=== PATIENT | female | born 2005 | race Two or more races ===

== ENCOUNTER 2024-09-10 12:46 | Outpatient (AMB) | payer MEDICARE, MEDICAID, SELFPAY ==
--- NOTE | 2024-09-10 12:48 | A.OFFPC_ITS ---
Vital Signs 09/10/24 12:59 Height 5 ft 1 in Weight 231 lb 6 oz BMI 43.7 BP 122/70 Blood Pressure Location Rt brachial Position Sitting Respiration 12 Pulse 93 Pulse Source Pulse Oximeter Temp 97.1 F Temp Source Oral Pulse Oximetry (%) 98 Oxygen Delivery Method Room Air Intake Visit Reasons: Est. Care Intake Note: New patient to establish care Drawer Upfitter Required: No Allergies pistacho and cashew Allergy (Severe, Uncoded 09/10/24 12:56) Unknown Medication List - Last Reviewed 09/10/24 by Raghu Brink MA albuterol sulfate 90 mcg/actuation 2 puffs inhalation Q4H PRN betamethasone dipropionate 0.05% appl topical cetirizine (Zyrtec) 10 mg PO DAILY PRN clindamycin phosphate 1% topical QAM dupilumab (Dupixent) mg subcut fluticasone propion-salmeterol 115-21 mcg/actuation 2 puffs inhalation BID norethindrone-e.estradiol-iron 1.5 mg-30 mcg (21)/75 mg (7) ( FE .07/11 (28)) 1 tab PO DAILY phentermine 15 mg PO QAM Tobacco use date assessed: 09/10/24 Dental Screening Dental Screen Date: 09/10/24 Did you have a dental visit in the last 12 months?: Yes Did you have a dental problem in the last 6 months where you did not have access to dental care?: No Was dental information given to patient?: Patient has dentist HPI HPI Comments History of Present Illness Details 18 y/o F with asthma, obesity, eczema Surgery: None Social: Fhx: Health Maintenance: Tdap 2016 Pap Specialist: Emy Quevedo Psych/Counseling Here w/ Aunt, Lives w/ Aunt and Grandma New pt no records BACO History of Present Illness - The patient is a 18-year-old female pr esenting to establish care for a CPE - She is here with her Aunt Shira who she calls her Mom. Shira does most if not all of the talking. 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 Patient education/wellness sheets from [facility] and IEP reports from childhood. Shira mentions extreme mental health problems and concerns limiting her ability to partake in normal living. - I do not have anything to support that ; be that as it may. - Morbid obesity with a BMI of 43.7; pas t participation in weight management; was on phentermine which caused headaches, so stopped. Interested in new referral - Asthma controlled with albuterol as ne eded, and fluticasone/salmeterol. - Eczema treated with Dupixent; signific ant improvements noted. - History of ADHD, not on meds; was on f ocalin at one time. Shira is interested in counseling/psych for meds Pt herself is not. - Depression not on meds. See ADHD - Gynecological symptoms include irregul ar menstruation and pain, not yet evaluated by a spa coordinator. Would like referral Social History - Experiences difficulties with transpor tation due to lack of personal vehicle. - Previously engaged in weight managemen t and exercise programs. Review of Systems - Respiratory: Denies current symptoms o f asthma exacerbation. - Dermatological: Reports eczema with sy mptoms managed by Dupixent. - Psychiatric: Reports issues with depre ssion and anger. - Neurological: Denies surgical history. - Gynecological: Reports irregular mense s and pelvic pain. - MSK c/o back pain Physical Exam General: Well developed, well nourished, in no acute distress. Appears stated age. Head: Normocephalic, atraumatic. Eyes: Pupils are equal, round and reactive to light and accommodation. Conjunct ivae are clear. Vision grossly normal. Ears: TMs clear AU, EACS WNL Nose: Patent, without discharge. Neck: Supple, no adenopathy or thyromegaly, short neck. Breast: Edu on SBE Lungs: Clear to auscultation bilaterally. No rales, rhonchi or wheeze noted. Good air flow in all teran. Heart: Regular rate and rhythm. No murmurs, click, rubs or gallops are noted. Abdomen: Bowel sounds present in all quadrants. The abdomen is soft, nontender, with no masses or organomegaly noted. No hernias are noted. : Deferred. Reviewed recommendations for routine LOOM CONTROL CHAIN BUILDER. s. Pulses: Peripheral pulses are equal and palpable bilaterally. Extremities: No clubbing, cyanosis nor edema is noted. Neurologic: Gait and station normal. Cranial Nerves 2-12 intact. Motor strength grossly symmetrical and intact. No sensory loss. Balance normal. Skin: No rashes, ulcers, or lesions noted. Turgor is good. Skin color is good. Hair and nails are without abnormalities. Scatted hypopigmented areas on body, including face. Acanthosis nigrans nape of neck. Psych: Normal eye contact, affect and mood appropriate, and normal interactions. Patient is alert and appropriate to context. She acts age appropriate, responds normally, however Shira speaks for her and/or over her. Results Lipids A1c pending Discussion Notes During our conversation, I reviewed several aspects of her health concerns including her obesity, asthma, eczema, depression, and ADD. The benefits of her current asthma regimen were acknowledged, with good control confirmed. The Dupixent has been effective in managing her eczema symptoms. I recommended establishing connection to gynecological services for her irregular menstrual cycles and discomfort. For psychiatric concerns, including depression and ADHD, referrals for psychiatry and counseling were recommended, taking into account the history of prior medication trials and behavioral control. We discussed the challenges in maintaining her weight management efforts due to previous program discontinuation and explored referral to a local weight management clinic. We explored transportation challenges hindering her ability to reach medical appointments, and I suggested additional resources to assist with this barrier. Follow-up steps include receiving calls for scheduling necessary referrals and exploring a structured management plan that aligns with addressing both her medical and psychosocial needs. Assessment and Plan 1. Morbid Obesity - Referral to weight management clinic. 2. Asthma - Continue current treatment regimen. No changes recommended. 3. Eczema - Continue treatment with Dupixent for e czema. 4. Depression/ADHD - refer to NN to help - Psychiatric referral for evaluation an d counseling. - Referral to psychiatric services for m edication review. 5. Gynecological Concerns - Referral to CONTINUOUS MINING MACHINE OPERATOR for menstrual irreg ularity evaluation. 6. back pain refer to pt 6. Disability/inability to work this will need to be reviewed asked for legal paperwork naming Shira as malickan or the like, although pt is 18 and able to consent/care for her self. Shira wants to be the primary stating pt cannot answer/reply via phone; pt is using phone adn smart watch the entire visit; appearing to reply to texts and also told Shira to answer her phone and hang up d/t spam - Therefore unsure why pt cannot be listed as the primary contact for herself. RTO 1 YEAR CPE, SOONER PRN Consent Patient was informed and verbally consented to the use of an ambient scribe for clinic note documentation during this visit. An additional 60 minutes was spent addressing the problem(s) noted at todays visit. This includes time spent before the visit reviewing the chart, time spent during the visit, and time spent after the visit on documentation reviewing laboratory results, diagnostic imaging, medications, performing a medically necessary evaluation, counseling on diagnoses, care coordination, ordering appropriate tests, ordering appropriate medications, review of tests performed by other providers, reporting test results with the patient, communication with other healthcare providers. [facility] Medical History (Updated 09/10/24 @ 14:31 by Meagan Garcia, [facility]) ADHD Allergic Anxiety and depression Asthma Sinusitis Surgical History (Updated 09/10/24 @ 13:12 by Raghu Brink MA) No pertinent past surgical history Family History (Updated 09/10/24 @ 13:13 by Raghu Brink MA) Father Asthma Social History (Updated 09/10/24 @ 13:10 by Raghu Brink MA) Household Members: Family Household Members Other:: mother Housing: House Are you a primary day care home provider to a significant other at home: No Do you presently have visiting nurse or other home services: No Alcohol intake: never Patient Tobacco Use Status: Never used Tobacco e-Cigarette/Vaping Use: Never Used Second Hand Smoke Exposure: No service: No Current occupational status: student Current occupational exposures/hazards: No Cognitive needs: No Hearing needs: Yes (right side ) Vision needs: No Questionnaire PHQ-9 Over the last 2 weeks, how often have you been bothered by any of the following problems? 1. Little interest or pleasure in doing things: several days 2. Feeling down, depressed, or hopeless: not at all 3. Trouble falling or staying asleep, or sleeping too much: not at all 4. Feeling tired or having little energy: several days 5. Poor appetite or overeating: several days 6. Feeling bad about yourself - or that you are a failure or have let yourself or your family down: not at all 7. Trouble concentrating on things, such as reading the newspaper or watching television: several days 8. Moving or speaking so slowly that other people could have noticed. Or the opposite - being so fidgety or restless that you have been moving around a lot more than usual: not at all 9. Thoughts that you would be better off or of hurting yourself in some way: not at all Total score: 4 Depression Screening Interpretation: Negative Depression Screening Done: Yes 54987 - PHQ-9 Billing: Yes Source: Developed by Drs. Fred Lewis, Bailey Delaney, Sharath Henning and colleagues, with an educational sia from [employer]. Thrive Questionnaire Date Thrive assessed: 09/10/24 I am a: Patient What is your living situation today?: I have a steady place to live Within the past 12 months, did the food you bought not last and you didn't have the money to get more?: Never true Within the past 12 months, did you worry whether your food would run out before you got money to buy more?: Never true Do you have trouble paying for medicines?: No Do you have trouble getting transportation to medical appointments?: Yes Do you have trouble paying your heating and electricity bill?: No Do you have trouble taking care of your child, family member or friend?: No Do you have trouble with day-to-day activities such as bathing, preparing meals, shopping, managing finances, etc.?: No Are you currently unemployed and looking for a job?: No Are you interested in more education?: Yes Please select the resources that you would like help with: Transportation Currently or been in a relationship where the following occur: No concerns reported THRIVE Score: 1 AUDIT C Alcohol Use Questionnaire (AUDIT-C) 1. How often do you have a drink containing alcohol?: Never 3. How often do you have six or more drinks on one occasion?: Never Total Score: 0 Score Reviewed/Action Taken: Yes TANYA-7 AMB Questionnaire TANYA-7 Date TANYA - 7 assessed: 09/10/24 Feeling nervous, anxious, or on edge: 0 = Not at all Not being able to stop or control worryin = Not at all Worrying too much about different things: 0 = Not at all Trouble relaxin = Several days Being so restless that it is hard to sit still: 0 = Not at all Becoming easily annoyed or irritable: 2 = More than half the days Feeling afraid as if something awful might happen: 0 = Not at all Total TANYA-7 score (0-4 normal; 5-9 mild; 10-14 moderate; 15-21 severe): 3 Source: Developed by Drs. Fred Lewis, Bailey Delaney, Sharath Henning and colleagues, with an educational sia from [employer]. TANYA-7 Assessment Billing TANYA-7 Assessment Tool: TANYA-7 Assessment 16587 ACT Questionnaire In the past 4 weeks, how much of the time did your asthma keep you from getting as much done at work, school or at home?: None of the time During the past 4 weeks, how often have you had shortness of breath?: Not at all During the past 4 weeks, how often did your asthma symptoms wake you up at night or earlier than usual in the morning?: Not at all During the past 4 weeks, how often have you had to use your rescue inhaler or nebulizer medication?: Not at all How would you rate your asthma control during the past 4 weeks?: Completely controlled ACT Interpretation: Negative Score: 25 Physical exam (Primary Care) Vital Signs: Last Vital Signs Temp 97.1 F 09/10/24 12:59 Pulse 93 09/10/24 12:59 Resp 12 09/10/24 12:59 BP 122/70 09/10/24 12:59 Pulse Ox 98 09/10/24 12:59 Oxygen Delivery Method Room Air 09/10/24 12:59 BMI result Body Mass Index 43.7 BMI Assessment/Plan discussion: High BMI High, discussed plan: lifestyle Tobacco/Smoking Status: Tobacco use Status Tobacco use date assessed 09/10/24 09/10/24 12:50 Patient Tobacco Use Status Never used Tobacco 09/10/24 13:10 e-Cigarette/Vaping Use Never Used 09/10/24 13:10 PHQ-9: PHQ-9 Score PHQ-9: Total score 4 09/10/24 13:39 Depression Screening Interpretation: Negative Thrive Assessment: Date of Thrive Assessment Date Thrive assessed 09/10/24 09/10/24 12:50 Currently or been in a relationship where the following occur: No concerns repor olivia Coding Level of Care Code New Pt Level 5 (38742) New Pt Prev Care 18-39yr(87792 Diagnoses Encounter to establish care Z76.89 TANYA (generalized anxiety disorder) F41.1 Mild episode of recurrent major depressive disorder F33.0 Major depression episode severity: mild Obesity, morbid, BMI 40.0-49.9 E66.01 Laboratory exam ordered as part of routine general medical examination Z00.00 Chronic midline low back pain without sciatica M54.50; G89.29 Chronicity: chronic Back pain laterality: midline Sciatica presence: without sciatica Encounter for screening involving social determinants of health (SDoH) Z13.9 Attention deficit hyperactivity disorder (ADHD), predominantly inattentive type F90.0 Attention deficit-hyperactivity disorder type: predominantly inattentive Mild intermittent asthma without complication J45.20 Asthma complication type: uncomplicated Other eczema L30.8 Eczema type: other Encounter for general adult medical examination without abnormal findings Z00.00 Additional Codes Asthma Control Questionnaire - ACT Interpretation: Negative ([id number]) TANYA-7 Assessment Billing - TANYA-7 Assessment Tool: TANYA-7 Assessment 95313 ([id number]) PHQ-9 - 59045 - PHQ-9 Billing: Yes ([id number]) Assessment & Plan Assessment & Plan (1) Encounter to establish care: Code(s): Z76.89 - Persons encountering health services in other specified circumstances (2) TANYA (generalized anxiety disorder): Code(s): F41.1 - Generalized anxiety disorder Category: Medical (3) MDD (major depressive disorder), recurrent episode: Code(s): F33.9 - Major depressive disorder, recurrent, unspecified Category: Medical Qualifiers: Major depression episode severity: mild Qualified Code(s): F33.0 - Major depressive disorder, recurrent, mild (4) Obesity, morbid, BMI 40.0-49.9: Code(s): E66.01 - Morbid (severe) obesity due to excess calories Category: Medical (5) Laboratory exam ordered as part of routine general medical examination: Code(s): Z00.00 - Encounter for general adult medical examination without abnormal findings Category: Medical (6) Low back pain: Code(s): M54.50 - Low back pain, unspecified Category: Medical Qualifiers: Chronicity: chronic Back pain laterality: midline Sciatica presence: without sciatica Qualified Code(s): M54.50 - Low back pain, unspecified; G89.29 - Other chronic pain (7) Encounter for screening involving social determinants of health (SDoH): Comment: refer to Code(s): Z13.9 - Encounter for screening, unspecified Category: Medical (8) ADHD: Code(s): F90.9 - Attention-deficit hyperactivity disorder, unspecified type Category: Medical Qualifiers: Attention deficit-hyperactivity disorder type: predominantly inattentive Qualified Code(s): F90.0 - Attention-deficit hyperactivity disorder, predominantly inattentive type (9) Mild intermittent asthma: Code(s): J45.20 - Mild intermittent asthma, uncomplicated Category: Medical Qualifiers: Asthma complication type: uncomplicated Qualified Code(s): J45.20 - Mild intermittent asthma, uncomplicated (10) Eczema: Comment: MANAGED BY CECILIO [facility] Code(s): L30.9 - Dermatitis, unspecified Category: Medical Qualifiers: Eczema type: other Qualified Code(s): L30.8 - Other specified dermatitis (11) Encounter for general adult medical examination without abnormal findings: Onset Date: ~09/10/24 Code(s): Z00.00 - Encounter for general adult medical examination without abnormal findings Category: Medical Plan , Orders: Orders PT Evaluation and Treatment Today M54.50 - Low back pain, unspecified, Z13.9 - Encounter for screening, unspecified Hemoglobin A1c Today Z00.00 - Encounter for general adult medical examination without abnormal findings Lipid Panel Today Z00.00 - Encounter for general adult medical examination without abnormal findings Referrals Nurse Navigator Referral F33.9 - Major depressive disorder, recurrent, unspecified, F41.1 - Generalized anxiety disorder, F90.9 - Attention-deficit hyperactivity disorder, unspecified type, Z13.9 - Encounter for screening, unspecified CONTINUOUS MINING MACHINE OPERATOR Referral Z12.4 - Encounter for screening for malignant neoplasm of cervix Medical Weight Management Referral E66.01 - Morbid (severe) obesity due to excess calories Patient Instructions: Walk-In Care (Urgent Care): We Make it Easy Walk-in for urgent medical issues such as: ? Seasonal Allergies ? Insect Bites ? Cough ? Diarrhea ? Acute Asthma Attacks ? Back, Knee or Joint Pain ? Ear Infection ? Fever without a Rash ? Headaches ? Nausea ? [address] Eye, Rash or Skin Irritation ? Sore Throat ? Sports Physicals ? Vomiting Most insurances are accepted. Patients do not need to be part of the [facility] to seek care at the walk-in clinic. Locations [address] [facility] , [place] [address] ? [phone] [facility] Walk-In Care in [place] provides services to ages 18 and over. Open Sunday-Sunday: 8 a.m. to 5 p.m. and Sunday: 9 a.m. to 3 p.m.* *Hours may vary due to staffing availability. To confirm Walk-In Care hours in [place], please call [phone]. [address] [place] [address] ? [phone] [facility] Walk-In Care in [place] provides services to ages 12 and over. Open Sunday-Sunday: 8 a.m. to 5 p.m. Hours may vary due to staffing availability. To confirm Walk-In Care hours in [place], please call [phone]. LABORATORY SERVICES: [facility] ? Primary Location [address] [place] [address] Sunday through Sunday 6:00 AM ? 5:00 PM Sunday 7:00 AM ? 11:00 AM* [phone] The [facility] is centrally located near the front entrance of the [facility] for easy outpatient access. Convenient parking is provided for outpatients. *Hours may vary due to staffing availability. To confirm Laboratory hours for any location, please call [phone]. Offsite Location For your convenience, we offer offsite laboratory draw stations at the following locations: [address] [place] [address] ? [address], [address] Sunday through Sunday 7:30 AM ? 1:00 PM* [phone] *Hours may vary due to staffing availability. To confirm Laboratory hours for any location, please call [phone]. [place] ? [address] Sunday through Sunday 6:00 AM ? 3:30 PM* Sunday 6:30 AM ? 3 PM* [phone] *Hours may vary due to staffing availability. To confirm Laboratory hours for any location, please call [phone]. [address] [facility] Sunday through Sunday 7:30 AM ? 4:00 PM* [phone] *Hours may vary due to staffing availability. To confirm Laboratory hours for any location, please call [phone] [facility] Sunday through 9:00 AM ? 4:00 PM* *Hours may vary due to staffing availability. To confirm Laboratory hours for any location, please call [phone]. Appointments are not necessary. Walk-ins are welcome. Like all the departments throughout the [facility], our Lab undergoes frequent reviews to ensure the quality and accuracy of test results, and our staff takes special pride in its status as a nationally accredited facility. Patient Portal: ONE PATIENT. ONE RECORD. BETTER CARE. [facility] has a fully integrated, cutting- edge mobile electronic health information system that has revolutionized the way we care for our patients and manage our organization. This system improves communication and coordination enabling us to provide safe, higher-quality care, and an overall positive experience for staff and patients. Our first priority, as always, is to deliver the highest quality care possible. The system is running in the background supporting that priority. This portal is for all [facility] services and practices. If you are experiencing any technical difficulties with enrolling or logging into the Patient Portal please complete the [facility] Patient Portal Technical Support Form. [facility] now offers a new secure on-line interactive tool for patients to review their health information ? ?Patient Portal. This interactive web portal will enable patients and their families to take an active role in their care by providing easy, secure access to their health information via the internet. The Patient Portal provides patients with instant access to their health information, including laboratory results, medications, allergies, demographic information, visit history, and more. In addition to managing their own care, parents and health care proxies with authorized consent will appreciate the ability to access the records of those individuals for whom they provide care. Please note: if you wish to gain access (Proxy) to another patient?s portal, you will be required to come to the Medical Records Department in person at [facility]. Both the patient giving proxy access and the proxy will need to provide photo identification and complete the appropriate authorization. The Patient Portal also allows track their appointments online. The [facility] Patient Portal also saves patients time by allowing them to submit updates to their demographic and contact information prior to their visits. Portal email notifications will also alert patients to any new activity on their portal, such as test results and new appointments. In order to initially enroll in the [facility] Patient Portal, you will need to enter some required information including the following: * your [facility] Medical Record number * your personal home email address * name * date of Please note: In order to enroll in the [facility] Patient Portal, we need to have your email address on file in your electronic medical record. ?The email address needs to be specific for one person (yourself) in order for your Portal enrollment to be successful. ?You can update your email address in person with our Registration staff when you are registering for a hospital visit. ?Otherwise, you will need to come to the Health Information Management (Medical Records) Department at [facility]. ?We are open from Sunday ? Sunday from 7:30 a.m. ? 4:30 p.m. ?You will be required to present a photo id. Once you have successfully enrolled in the Patient Portal, you will receive a one-time user id and password for the Portal, sent to your email address. ?This will allow you to log into the Patient Portal within 99 hrs and reset your own logon id and password, and define personal security questions. ?Once your permanent login and password have been set, you can log into the [facility] [facility] Patient Portal at any time via the blue button above or from the Portal Logon button on any page of the [facility] website. [facility] and [facility] encourage all of our patients to enroll in Patient Portal as it presents a valuable opportunity for patients and their families to actively participate in their care and stay healthy Welcome to [facility]. ?We look forward to working with you. Health screenings for women You should visit your health care provider from time to time, even if you are healthy. The purpose of these visits is to: Screen for medical issues Assess your risk for future medical problems Encourage a healthy lifestyle Update vaccinations and other preventive care services Help you get to know your provider in case of an illness Information Even if you feel fine, you should still see your provider for regular checkups. These visits can help you avoid problems in the future. For example, the only way to find out if you have high blood pressure is to have it checked regularly. High blood sugar and high cholesterol levels also may not have any symptoms in the early stages. A simple blood test can check for these conditions. There are specific times when you should see your provider or receive specific health screenings. The [place] Preventive Services Task Force publishes a list of recommended screenings. Below are screening guidelines for women ages 18 to 39. BLOOD PRESSURE SCREENING Your blood pressure should be checked at least once every 3 to 5 years if: Your blood pressure is in the normal range (top number less than 120 mm Hg and bottom number less than 80 mm Hg) You don't have risk factors for high blood pressure Ask your provider if you need your blood pressure checked more often if: The top number is 120 to 129 mm Hg or the bottom number is 70 to 79 mm Hg You have diabetes, heart disease, kidney problems, are overweight, or have certain other health conditions You have a first-degree relative with high blood pressure You are Black You had high blood pressure during a If the top number is 130 mm Hg or greater or the bottom number is 80 mm Hg or greater, this is considered stage 1 hypertension. Schedule an appointment with your provider to learn how you can reduce your blood pressure. Watch for blood pressure screenings in your area. Ask your provider if you can stop in to have your blood pressure checked. BREAST CANCER SCREENING Experts do not agree about the benefits of breast self-exams in finding breast cancer or saving lives. Talk to your provider about what is best for you. A screening mammogram is not recommended for most women under age 40. Your provider may discuss and recommend mammograms, MRI scans, or ultrasounds if you have an increased risk for breast cancer, such as: A mother or sister who had breast cancer at a young age (most often starting screening earlier than the age the close relative was diagnosed) You carry a high-risk genetic marker CERVICAL CANCER SCREENING Cervical cancer screening should start at age 21 years unless your provider advises otherwise. After the first test: Women ages 21 through 29 should have a Pap test every 3 years. Exoprts do not agree on whether HPV testing is recommended for this age group. Women ages 30 through 65 should be screened with either a Pap test every 3 years or the HPV test every 5 years or both tests every 5 years (called cotesting ). Women who have been treated for precancer (cervical dysplasia) should continue to have Pap tests for 20 years after treatment or until age 65, whichever is l onger. If you have had your uterus and cervix removed (total hysterectomy), and you have not been diagnosed with cervical cancer or precancer (high grade cervical neoplasia), you do not need cervical cancer screening. CHOLESTEROL SCREENING Cholesterol screening should begin at: Age 45 for women with no known risk factors for coronary heart disease Age 20 for women with known risk factors for coronary heart disease Repeat cholesterol screening should take place: Every 5 years for women with normal cholesterol levels More often if changes occur in lifestyle (including weight gain and diet) More often if you have diabetes, heart disease, kidney problems, or certain other conditions DIABETES SCREENING You should be screened for diabetes starting at age 35 and then repeated every 3 years if you have no risk factors for diabetes. Screening may need to start earlier and be repeated more often if you have other risk factors for diabetes, such as: You have a first degree relative with diabetes. You are overweight or have obesity. You have high blood pressure, prediabetes, or a history of heart disease. Screening for diabetes should be done if you are planning to become and you are overweight and have other risk factors such as high blood pressure. DENTAL EXAM Go to the dentist once or twice every year for an exam and cleaning. Your dentist will evaluate if you need more frequent visits. EYE EXAM Have an eye exam every 5 to 10 years before age 40. If you have vision problems, have an eye exam every 2 years or more often if recommended by your provider. You should have an eye exam that includes an examination of your retina (back of your eye) at least every year if you have diabetes. IMMUNIZATIONS Commonly needed vaccines include: Flu shot: get one every year. COVID-19 vaccine: ask your provider what is best for you. Tetanus-diphtheria and acellular pertussis (Tdap) vaccine: have one at or after age 19 as one of your tetanus-diphtheria vaccines if you did not receive it as an adolescent. Tetanus-diphtheria: have a booster (or Tdap) every 10 years. Varicella vaccine: receive 2 doses if you never had chickenpox or the varicella vaccine. Hepatitis B vaccine: receive 2, 3, or 4 doses, depending on your exact circumstances. Measles, mumps, and rubella (MMR) vaccine: receive 1 to 2 doses if you are not already immune to MMR. Your provider can tell you if you are immune. Ask your provider about the human papillomavirus (HPV) vaccine if: You have not received the HPV vaccine in the past You have not completed the full vaccine series (you should catch up on this shot) Ask your provider if you should receive other immunizations if you have certain health problems that increase your risk for some diseases such as pneumonia. INFECTIOUS DISEASE SCREENING Women who are sexually active should be screened for chlamydia and gonorrhea up until age 25. Women 25 years and older should be screened for chlamydia and gonorrhea if at high risk. Screening for hepatitis C: All adults ages 18 to 79 should get a one-time test for hepatitis C. people should be screened at every . Screening for human immunodeficiency virus (HIV): All people ages 15 to 65 should get a one-time test for HIV. Depending on your lifestyle and medical history, you may also need to be screened for infections such as syphilis and HIV, as well as other infections. PHYSICAL EXAM All adults should visit their provider from time to time, even if they are healthy. The purpose of these visits is to: Screen for disease Assess your risk of future medical problems Encourage a healthy lifestyle Update your vaccinations and other preventive care services Maintain a relationship with a provider in case of an illness Your height, weight, and BMI should be checked at every exam. During your exam, your provider may ask you about: Depression and anxiety Diet and exercise Alcohol and tobacco use Safety issues, such as using seat belts, smoke detectors, and intimate partner violence Your medicines and risk for interactions SKIN SELF-EXAM Your provider may check your skin for signs of skin cancer, especially if you're at high risk, such as if you: Have had skin cancer before Have close relatives with skin cancer Have a weakened immune system OTHER SCREENING Talk with your provider about colon cancer screening if you have a strong family history of colon cancer or polyps, or if you have had inflammatory bowel disease or polyps yourself. Routine bone density screening of women under 40 is not recommended.
[2024-09-10 12:59] VITALS: BP 122/70; PULSE 93; RESP 12; TEMP 36.2; O2SAT 98; BMI 43.7
--- OUTSIDE RECORDS SUMMARY | 2024-09-10 13:19 | XMS_ITS ---
Author Name [facility] Organization Unknown History of Medication Use Medication Directions Dispensed Refills Start Date End Date Stat us phentermine 15 MG capsule Take 1 capsule (15 mg) by mouth every morning 10/16/2023 11/16/2023 active buPROPion (WELLBUTRIN XL) 300 MG 24 hr tablet Take 300 mg by mouth daily for 30 days active Allergies Allergen Reaction Severity Comment Documented Date Source Statu s TREE NUTS 12/23/2019 [facility] [place] Problems Problem Status Onset Date Problem Type Date of Resolution Source Class 3 severe obesity due to excess calories with body mass index (BMI) of 40.0 to 44.9 in adult, unspecified whether serious comorbidity present active EncounterDiagnosisAct [facility] Dietary counseling active [facility] D[facility] active [facility] Encounters Encounter Type Encounter Reason Primary Diagnosis Location Date Ambulatory Weight Management Weight Management [facility] [place] 05/16/2024 Ambulatory Obesity Obesity [facility] ([facility] 05/07/2024 Ambulatory Other obesity due to excess calories Other obesity due to excess calories [facility] ([facility] 04/14/2024 Ambulatory Other obesity due to excess calories Other obesity due to excess calories [facility] ([facility] 11/01/2023 Ambulatory Other obesity due to excess calories Other obesity due to excess calories [facility] ([facility] 10/16/2023 Ambulatory Other obesity due to excess calories Other obesity due to excess calories [facility] ([facility] 10/12/2023 Ambulatory Other obesity due to excess calories Other obesity due to excess calories [facility] ([facility] 07/23/2023 [facility] 07/10/2023 Ambulatory Other obesity due to excess calories Other obesity due to excess calories [facility] ([facility] 06/21/2023 Ambulatory [facility] ([facility] 06/09/2023 Ambulatory Other obesity due to excess calories Other obesity due to excess calories [facility] ([facility] 05/31/2023 Ambulatory Other obesity due to excess calories Other obesity due to excess calories [facility] ([facility] 04/10/2023 Ambulatory Other malaise Other malaise [facility] ([facility] 04/10/2023 Ambulatory [facility] ([facility] 04/10/2023 Care Team Organization Name Specialty Phone Email Start Date End Da te [facility] Primary Care 04/10/2023 08/27/19 [facility] ([facility] RAS CARRANZA Primary Care [phone]
--- OUTSIDE RECORDS SUMMARY | 2024-09-10 13:19 | XMS_ITS | Clinical Summary ---
Author Organization [facility] Address [address] [place] [address] Phone Care Team Providers Care Ad Operations Coordinator Name Role Phone Ju Arambula MD Unavailable [phone] Miguel Shore MD Primary Care Provider [phone] Miguel Shore MD Unavailable [phone] Medications * This document contains information received from the source organization and may not represent a complete record from that organization. buPROPion XL (Wellbutrin XL) 300 mg 24 hr tablet Dose: 300 mg, Dose Amount: 1 tab, PO, Q24hr, Dispense Quantity: 30 tab, Refills: 1, Entered: 09/11/22 12:25:00 EDT, [facility]/pharmacy #[id number] 3 Active cetirizine (ZyrTEC) 10 mg tablet Dose: 10 mg, Dose Amount: 1 tab, PO, daily, Dispense Quantity: 90 tab, Refills: 3, Entered: 06/28/18 11:35:41 EDT, [facility] [id number] 9 Active clindamycin (Cleocin-T) 1 % lotion Dose Amount: 1 appl, TOP, BID, Special Instructions: apply to affected bumps in armpits and groin and to legs after shaving, Dispense Quantity: 60 mL, Refills: 6, Entered: 01/31/18 13:06:[id number] 8 Active dulaglutide (Trulicity) 0.75 mg/0.5 mL pen injector Dose: 0.75 mg, Subcutaneous, WeeklyWednesda y, Entered: 03/27/22 14:07:00 EST 3 Active norethindrone ac-eth estradioL (Junel ,) 1-20 mg-mcg tablet Dose Amount: 1 tab, PO, daily, Entered: 08/25/21 17:48:00 EDT 2 Active fluticasone (Flonase Allergy Relief) 50 mcg/spray nasal spray Dose Amount: 2 spray, Nasal, daily, Special Instructions: to each nostril, Dispense Quantity: 3 EA, Refills: 3, Entered: 11/06/18 9:27:00 EDT, [facility] #[id number] 9 Active ketoconazole (NIZOral) 2 % shampoo Dose Amount: 1 appl, TOP, As Directed, Special Instructions: lather onto scalp, leave on for 5 min and rinse off 2x/week, Dispense Quantity: 120 mL, Refills: 6, Entered: 01/31/18 13:13:26 EST, [facility] [id number] 8 Active ketotifen (Zaditor) 0.025 % (0.035 %) ophthalmic solution Dose Amount: 1 drop, Eye Both, BID, Dispense Quantity: 7 mL, Refills: 3, Entered: 06/28/18 11:39:44 EDT, [facility] [id number] 9 Active lisdexamfetamin e (Vyvanse) 40 mg capsule Dose: 40 mg, Dose Amount: 1 cap, PO, DailyMorning, Dispense Quantity: 60 cap, Refills: 0, Entered: 08/28/22 16:19:00 EDT, [facility]/pharmacy #[id number] 3 Active montelukast (Singulair) 10 mg tablet Dose: 10 mg, Dose Amount: 1 tab, PO, daily, Dispense Quantity: 90 tab, Refills: 3, Entered: 06/28/18 11:38:58 EDT, [facility] [id number] 9 Active Social History Tobacco Use Types Packs/Day Years Used Date Smoking Tobacco: Never Assessed Comments Unknown Sex and Gender Information Value Date Recorded Sex Assigned at Not on file Legal Sex Female 8:01 PM EDT Gender Identity Not on file Sexual Orientation Not on file Last Filed Vital Signs Vital Sign Reading Time Taken Comments Blood Pressure - - Pulse - - Temperature - - Respiratory Rate - - Oxygen Saturation - - Inhaled Oxygen Concentration - - Weight 78.2 kg (172 lb 6.4 oz) 09/27/2018 9:35 A M EDT Height 154 cm (5' 0.63 ) 09/27/2018 9:35 AM EDT Body Mass Index 32.97 09/27/2018 9:35 AM EDT Plan of Treatment Not on file Care Teams Ad Operations Coordinator Relationship Specialty Start Date End Date Ralf, Ju Cueto MD [address] [place], [place] [id number] PCP - Insurance PCP 08/18/22 Miguel Shore MD [address] [place] [address] PCP - General 12/22/08 Miguel Shore MD [address] [place] [address] PCP - Clinical PCP 06/15/10
--- OUTSIDE RECORDS SUMMARY | 2024-09-10 13:19 | XMS_ITS | Encounter Summary ---
Author Organization [facility] Address [address] [place], [place] [id number] Phone Care Team Providers Care Excavator Operator Name Role Phone Ju Arambula MD Primary Care Provider [phone] Encounter Details Date Type Department Care Team (Late st Contact Info) Description 09/21/2015 Documentation [facility] Family Medicine [address] [place] [address] Family Medicine, Physician [address] [place], [place] [address] Social History Tobacco Use Types Packs/Day Years Used Date Smoking Tobacco: Never Assessed Comments Unknown Sex and Gender Information Value Date Recorded Sex Assigned at Female 10/28/2018 6:06 PM EDT Legal Sex Female 5:01 PM EDT Gender Identity Female 10/28/2018 6:06 PM EDT Sexual Orientation Straight 08/08/2021 9: 52 AM EDT documented as of this encounter Plan of Treatment Not on file documented as of this encounter Visit Diagnoses Not on filedocumented in this encounter Care Teams Excavator Operator Relationship Specialty Start Date End Date Ju Arambula MD [address] [place] [id number] PCP - General Pediatrics 01/12/19 documented as of this encounter
== END 2024-09-10 13:55 | disposition home or self-care (01) ==
LOC: HO.HMCFM 12:46
PROVIDERS: PCP Nurse Practitioner Family; Visit Provider Nurse Practitioner Family
DX: Z00.00 Encounter for general adult medical examination without abnormal findings (principal); F41.1 Generalized anxiety disorder; E66.01 Morbid (severe) obesity due to excess calories; Z68.41 Body mass index [BMI] 40.0-44.9, adult; M54.50 Low back pain, unspecified; Z76.89 Persons encountering health services in other specified circumstances; F33.0 Major depressive disorder, recurrent, mild; G89.29 Other chronic pain; F90.0 Attention-deficit hyperactivity disorder, predominantly inattentive type; J45.20 Mild intermittent asthma, uncomplicated; L30.8 Other specified dermatitis

== ENCOUNTER → 2024-09-10 12:46 | Outpatient (BNVA) | payer MEDICARE, MEDICAID, SELFPAY | PROVIDERS: PCP Nurse Practitioner Family; Visit Provider Nurse Practitioner Family | DX: Z00.00 Encounter for general adult medical examination without abnormal findings (principal); Z76.89 Persons encountering health services in other specified circumstances; F41.1 Generalized anxiety disorder; F33.0 Major depressive disorder, recurrent, mild; E66.01 Morbid (severe) obesity due to excess calories; Z68.41 Body mass index [BMI] 40.0-44.9, adult; M54.50 Low back pain, unspecified; G89.29 Other chronic pain; F90.9 Attention-deficit hyperactivity disorder, unspecified type; J45.20 Mild intermittent asthma, uncomplicated; L30.8 Other specified dermatitis; Z71.3 Dietary counseling and surveillance | CPT/HCPCS: 96127; 96160; 99202; 99385 ==

== ENCOUNTER 2024-09-10 14:06 | Outpatient (REF) | payer MEDICARE, MEDICAID, SELFPAY ==
[2024-09-10 18:30] LABS: Cholesterol 178 mg/dL (<200); HDL Cholesterol 36 mg/dL (>40); Triglycerides 135 mg/dL (<150)
[2024-09-10 18:34] LABS: Hemoglobin A1C 107.0047 umol/L; Total Hemoglobin (HGBA1C) 3120.6006 umol/L
== END 2024-09-10 14:07 | disposition home or self-care (01) ==
LOC: HO.WFDLDS 14:06
PROVIDERS: Visit Provider Nurse Practitioner Family
DX: Z00.00 Encounter for general adult medical examination without abnormal findings (principal); Z13.9 Encounter for screening, unspecified; M54.50 Low back pain, unspecified
CPT/HCPCS: 36415; 80061; 83036

== ENCOUNTER 2024-12-03 08:18 | Outpatient (AMB) | payer MEDICARE, MEDICAID, SELFPAY ==
--- NOTE | 2024-12-03 08:09 | A.OFFVIS_ITS ---
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 Allergies pistacho and cashew Allergy (Severe, Uncoded 12/03/24 08:09) Unknown Medication List - Last Reconciled 12/03/24 by Eddie Caldwell MD albuterol sulfate 90 mcg/actuation 2 puffs inhalation Q4H PRN betamethasone dipropionate 0.05% appl topical cetirizine (Zyrtec) 10 mg PO DAILY PRN clindamycin phosphate 1% topical QAM dupilumab (Dupixent) mg subcut epinephrine IM fluticasone propion-salmeterol 115-21 mcg/actuation 2 puffs inhalation BID methylphenidate ER 25.9 mg PO DAILY norethindrone-e.estradiol-iron 1.5 mg-30 mcg (21)/75 mg (7) ( FE 1.5/30 (28)) 1 tab PO DAILY sertraline 25 mg PO DAILY HPI 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: Details: Start time: 8.00am, End time: 9am ?I spent 50 minutes speaking with the patient on the phone plus an additional 10 minutes reviewing and updating records for a total of 60 minutes HPI Comments Details: Previous weight loss efforts: [facility] (meal plan and Phentermine for a month: had to stop due to severe headaches): 1 year lost 2lbs Wakes up: 9am, Sleeps: 11.30pm Breakfast: 9.30am (bagel with eggs, cereal) Lunch: skips Dinner: 6-7pm (chicken, rice, beans) Snacks: snacks twice between breakfast and dinner (fruits, crackers), once after dinner (same) Exercise: none Beverages: Coffee: none, Tea: none, Soda: regular Coca Cola and Dr. Persaud, Juice: Iced tea and juices calories, ETOH: none PFSH Medical History (Updated 12/03/24 @ 08:14 by Eddie Caldwell MD) Morbid obesity Anxiety and depression ADHD Allergic Sinusitis Asthma Surgical History (Updated 09/10/24 @ 13:12 by Raghu Brink MA) No pertinent past surgical history Family History (Updated 09/10/24 @ 13:13 by Raghu Brink MA) Father Asthma Social History (Updated 09/10/24 @ 13:10 by Raghu Brink MA) Household Members: Family Household Members Other:: mother Both parents involved: No Caregiver staying overnight: No Housing: House Are you a primary caretaker to a significant other at home: No Do you presently have visiting nurse or other home services: No 75 years or older and lives alone: No Alcohol intake: never Patient Tobacco Use Status: Never used Tobacco e-Cigarette/Vaping Use: Never Used Second Hand Smoke Exposure: No service: No Current occupational status: student Current occupational exposures/hazards: No Cognitive needs: No Hearing needs: Yes (right side ) Vision needs: No Physical Exam Vital Signs: BMI result Body Mass Index 42.4 Telehealth Telehealth Telehealth Platform: Telephone Location of provider rendering services: practice address Location of patient: address on file Patient Identification confirmed using: Name, : Yes Telehealth method: voice only Patient verbally consented to treatment: Yes Assessment & Plan Assessment & Plan (1) Morbid obesity: Code(s): E66.01 - Morbid (severe) obesity due to excess calories Category: Medical Plan: 1.? Plan for lap sleeve gastrectomy. If diaphragmatic or ventral hernias are present at time of surgery, these will be repaired laparoscopically as well. I emphasized the importance of close follow-up, adherence to instructions and good communication. The surgery does not replace the need to change your lifestlyle w hich is the cause of the obesity problem. The surgery provides the motivation to try again to change your lifestyle, it reduces the appetite and make the transition to a better lifestyle easier and doubles the amount of weight you would lose compared to doing the lifestyle change without the surgery. You will need to be on a liquid diet with protein shakes for 2 weeks before surgery to maximize weight loss and boost your nutritional status to recover better from surgery and also for the first two weeks after surgery to let the stomach heal before we introduce other foods. After the first 2 weeks we will introduce protein bars and soft foods like scrambled eggs, cottage cheese and yogurt and after the 6th week will introduce meat, fish and cooked vegetables in small chacorta unts. Over time you should be able to eat everything in small amounts. Side effects like nausea, vomiting, heartburn or abdominal pain are not common in the practice unless you are not following in the practice. This operation requires lifetime commitment to following in our practice and communication with me. You will much less weight and experience side effects if you don?t communicate or not following in the practice. Complications are rare and in our practice is about 1/10 of the national average. However, you can develop bleeding that may require transfusion (hasn?t happened for year in the practice), you may from complications (we did not have any deaths in the practice) and infections. Infections are usually a result of breakdown in communication or not understanding or following directions correctly. They are difficult to treat, they can happen during the first 6 weeks, they may require to be in the hospital for weeks or even months, not being able to eat by mouth and you may have drains and surgeries to try and correct the issue. Other risks and complications include possible conversion to an open procedure, leaks, small bowel obstruction, blood clots, cardiac, or pulmonary complications, as lobsterman complications such as ulcers, insufficient weight loss and vitamin deficiencies. 2.? Nutritional counseling. Start with one CELEBRATE REBUILD protein (buy online) shake (ONE scoop EACH in 8oz low fat oat milk each) at 10am-12pm, one protein bar (CELEBRATE protein bars, buy online) at 1pm-3pm, another CELEBRATE REBUILD protein shake (ONE scoop EACH in 8oz low fat oat milk each) at 4pm-6pm, dinner at 7pm (8 forks of protein and 8 forks of salad/vegetables) AND one more protein bar after dinner at 9pm-11pm. So you do 2 protein shakes, 2 protein bars and one meal per day. Meal to include lean meat (beef, fish, pork, turkey, chicken), or tajik yogurt, or egg whites, or beans with a salad with olive oil and fruits (berries, pears, apples, kiwi). Avoid salt, breads, potatoes, rice, pasta, desserts. 3. Each shake would be drunk slowly, like coffee in a period of 2 hours. 4. Cut each bar in 4 pieces and eat each piece in 30min ?to make each bar last 2 hours. 5. I emphasized the importance of measuring accurately the food portion and measure it when serving the food in plate 6. The meal portions include 8 full-size forks of meat and 8 full-size forks of salad. You always eat the meat portion but you can replace up to 4 forks for salad/vegetables with rice, potatoes or pasta, or a fruit ?if you like. The less you do it the better weight loss will be. 7. One full-size fork is what it can be scooped on the fork without falling aside and not what can be bit with the fork. Use regular forks like those you find in a typical restaurant. 8.? Please buy the body composition scale we discussed and send me weight measurements as soon as possible and then once a week. Always include your diet and exercise plan. 9. Start walking outside daily, tracking calories with a goal of 300 calories per day, daily. Goal is to burn 2000 calories per week on exercise, which means either 300 calories daily, or 400 calories 5 days per week, or 500 calories 4 days per week, or 650 calories 3 days per week. 10. The best choice would be to purchase a stationary bike, elliptical or treadmill at home that can track calories. If you get one, or you use a gym, please start stationary bike at a resistance level of 4.0 Increase level by 1.0 every 3 min to a max level of 10.0. Stay at this level for 3 min and then return to level 4.0 and repeat same steps until 300 calories are burned. Goal is to burn 2000 calories per week on exercise 11.?It is important of avoiding and for at least 18 months postoperatively and has been discussed at the infosession. 12. Goal is to lose at least 1.5-2lbs per week 13. Goal to lose 10% of your weight before surgery, which is about 24lbs. Ultimate weight goal: 200lbs before surgery 14. Please follow the diet plan exactly without any change. If you don't like something about the plan or you feel hungry you need to communicate with me so I can help you revise the plan. You should not change the plan yourself 15. To be scheduled for EGD to assess the stomach's anatomy. The possibility of biopsies was discussed. Patient needs to avoid use of NSAIDs and aspirin for 1 week prior to EGD. You must be on liquids only the day before your endoscopy. Risks of perforation and bleeding was discussed with the patient. This will be an outpatient procedure with IV sedation. 16. As of tomorrow, please send me a picture of your meal plate after you measure it, but before you consume it. 17. The patient used Phentermine recently at [facility] but had to be discontinued due to severe and persistent headaches. In my opinion, Zepbound is indicated. We discussed the potential side effects of Zepbound such as nausea, vomiting, abdominal pain, diarrhea and constipation and you will need to contact me if any of these symptoms occur or for any other new symptom you may experience Orders: Orders TSH reflex Free T4 Today E66.01 - Morbid (severe) obesity due to excess calories, E78.5 - Hyperlipidemia, unspecified C Reactive Protein Today E66.01 - Morbid (severe) obesity due to excess calories, E78.5 - Hyperlipidemia, unspecified Insulin Today E66.01 - Morbid (severe) obesity due to excess calories, E78.5 - Hyperlipidemia, unspecified Vitamin B1 Today E66.01 - Morbid (severe) obesity due to excess calories, E78.5 - Hyperlipidemia, unspecified Vitamin B12 and Folate Today E66.01 - Morbid (severe) obesity due to excess calories, E78.5 - Hyperlipidemia, unspecified Lipid Panel Today E66.01 - Morbid (severe) obesity due to excess calories, E78.5 - Hyperlipidemia, unspecified Hemoglobin A1c Today E66.01 - Morbid (severe) obesity due to excess calories, E78.5 - Hyperlipidemia, unspecified Zinc Today E66.01 - Morbid (severe) obesity due to excess calories, E78.5 - Hyperlipidemia, unspecified IRON PROFILE Today E66.01 - Morbid (severe) obesity due to excess calories, E78.5 - Hyperlipidemia, unspecified XR chest 2V Today E66.01 - Morbid (severe) obesity due to excess calories, E78.5 - Hyperlipidemia, unspecified FL upper GI w air Today E66.01 - Morbid (severe) obesity due to excess calories, E78.5 - Hyperlipidemia, unspecified Comprehensive Met. Panel Today E66.01 - Morbid (severe) obesity due to excess calories, E78.5 - Hyperlipidemia, unspecified Complete Blood Count Auto Diff Today E66.01 - Morbid (severe) obesity due to excess calories, E78.5 - Hyperlipidemia, unspecified Ferritin Today E66.01 - Morbid (severe) obesity due to excess calories, E78.5 - Hyperlipidemia, unspecified Vitamin D 25-OH Total Today E66.01 - Morbid (severe) obesity due to excess calories, E78.5 - Hyperlipidemia, unspecified Vitamin A Today E66.01 - Morbid (severe) obesity due to excess calories, E78.5 - Hyperlipidemia, unspecified H Pylori Breath Test Today E66.01 - Morbid (severe) obesity due to excess calories, E78.5 - Hyperlipidemia, unspecified ECG 12 lead EKG Today E66.01 - Morbid (severe) obesity due to excess calories, E78.5 - Hyperlipidemia, unspecified US abdomen comp w elastography Today E66.01 - Morbid (severe) obesity due to excess calories, E78.5 - Hyperlipidemia, unspecified Referrals Behavioral Health Referral E66.01 - Morbid (severe) obesity due to excess calories, E78.5 - Hyperlipidemia, unspecified Medications: New tirzepatide (weight loss) (Zepbound) for 4 weeks 2.5 mg (0.5 mL) subcut QWEEK 2 mL 0RF E66.01 - Morbid (severe) obesity due to excess calories
[2024-12-03 08:21] VITALS: BMI 42.4
--- OUTSIDE RECORDS SUMMARY | 2024-12-03 08:26 | XMS_ITS | Encounter Summary ---
Author Organization [facility] Address [address] [place], [place] [id number] Phone Care Team Providers Care Custodial Maintenance Worker Name Role Phone Miguel Shore MD Primary Care Provider Encounter Details Date Type Department Care Team (Late st Contact Info) Description 09/28/2015 Documentation [facility] [place] Family Medicine [address] [place] [address] Family Medicine, Physician [address] [place], [place] [address] Social History Tobacco Use Types Packs/Day Years [...] on filedocumented in this encounter Care Teams Custodial Maintenance Worker Relationship Specialty Start Date End Date Miguel Shore MD [address] [place] [address] [place] [address] PCP - General 09/22/16 01/11/19 documented as of this encounter
--- OUTSIDE RECORDS SUMMARY | 2024-12-03 08:26 | XMS_ITS | Encounter Summary ---
Author Organization [facility] Address [address] [place], [place] [address] Phone Care Team Providers Care Insurance Coordinator Name Role Phone Miguel Shore MD Primary Care Provider [phone] Encounter Details Date Type Department Care Team (Late st Contact Info) Description 08/30/2009 Documentation [facility] [place] Family Medicine [address] [place] [address] Family Medicine, Physician [address] [place], [place] [address] Social History Tobacco Use Types Packs/Day Years [...] on filedocumented in this encounter Care Teams Insurance Coordinator Relationship Specialty Start Date End Date Miguel Shore MD [address] [place] [address] [place] [address] PCP - General 09/22/16 01/11/19 documented as of this encounter
--- OUTSIDE RECORDS SUMMARY | 2024-12-03 08:26 | XMS_ITS | Encounter Summary ---
Author Organization [facility] Address [address] [place], [place] [address] Phone Care Team Providers Care Dye House Wheel Operator Name Role Phone Miguel Shore MD Primary Care Provider [phone] Encounter Details Date Type Department Care Team (Late st Contact Info) Description 09/21/2015 Documentation [facility] [place] Family Medicine [address] [place] [address] Family Medicine, Physician [address] [place], [place] [address] Social History Tobacco Use Types Packs/Day Years [...] on filedocumented in this encounter Care Teams Dye House Wheel Operator Relationship Specialty Start Date End Date Miguel Shore MD [address] [place] [address] [place] [address] PCP - General 09/22/16 01/11/19 documented as of this encounter
--- OUTSIDE RECORDS SUMMARY | 2024-12-03 08:26 | XMS_ITS | Encounter Summary ---
Author Organization [facility] Address [address] [place] [address] Phone Care Team Providers Care Head Miller Name Role Phone Miguel Shore MD Primary Care Provider [phone] Encounter Details Date Type Department Care Team (Late st Contact Info) Description 05/19/[address] [facility] [place] Family Medicine [address] [place] [address] Family Medicine, Physician [address] [place], [place] [address] Social History Tobacco Use Types Packs/Day Years [...] on filedocumented in this encounter Care Teams Head Miller Relationship Specialty Start Date End Date Miguel Shore MD [address] [place] [address] [place] [address] PCP - General 09/22/16 01/11/19 documented as of this encounter
--- OUTSIDE RECORDS SUMMARY | 2024-12-03 08:26 | XMS_ITS | Encounter Summary ---
Author Organization [facility] Address [address] [place] [address] Phone Care Team Providers Care Adult Live In Caregiver Name Role Phone Miguel Shore MD Primary Care Provider [phone] Encounter Details Date Type Department Care Team (Late st Contact Info) Description 03/01/2016 Documentation [facility] [place] Family Medicine [address] [place] [address] Family Medicine, Physician [address] [place], [place] [address] Social History Tobacco Use Types Packs/Day Years [...] on filedocumented in this encounter Care Teams Adult Live In Caregiver Relationship Specialty Start Date End Date Miguel Shore MD [address] [place] [address] [place] [address] PCP - General 09/22/16 01/11/19 documented as of this encounter
--- OUTSIDE RECORDS SUMMARY | 2024-12-03 08:26 | XMS_ITS | Encounter Summary ---
Author Organization [facility] Address [address] [place], [place] [address] Phone Care Team Providers Care Glass Melt Operator Name Role Phone Miguel Shore MD Primary Care Provider [phone] Encounter Details Date Type Department Care Team (Late st Contact Info) Description 09/24/2015 Documentation [facility] [place] [address] [place] [address] Family Medicine, Physician [address] [place], [place] [address] Social History Tobacco Use Types Packs/Day Years [...] on filedocumented in this encounter Care Teams Glass Melt Operator Relationship Specialty Start Date End Date Miguel Shore MD [address] [place] [address] [place] [address] PCP - General 09/22/16 01/11/19 documented as of this encounter
--- OUTSIDE RECORDS SUMMARY | 2024-12-03 08:27 | XMS_ITS | Encounter Summary ---
Author Organization [facility] Address [address] [place], [place] [phone] Phone Care Team Providers Care Probation Agent Name Role Phone Miguel Shore MD Primary Care Provider [phone] Encounter Details Date Type Department Care Team (Late st Contact Info) Description 03/28/2013 Documentation [facility] [place] Family Medicine [address] [place] [address] Family Medicine, Physician [address] [place], [place] [address] Social History Tobacco Use Types Packs/Day Years [...] on filedocumented in this encounter Care Teams Probation Agent Relationship Specialty Start Date End Date Miguel Shore MD [address] [place] [address] [place] [address] PCP - General 09/22/16 01/11/19 documented as of this encounter
--- OUTSIDE RECORDS SUMMARY | 2024-12-03 08:27 | XMS_ITS | Encounter Summary ---
Author Organization [facility] Address [address] [place], [place] [phone] Phone Care Team Providers Care Retail Seasonal Specialist Name Role Phone Miguel Shore MD Primary Care Provider [phone] Encounter Details Date Type Department Care Team (Late st Contact Info) Description 09/28/2016 Conversion Encounter [facility] [place] [address] [place] [address] Social History Tobacco Use Types Packs/Day Years [...] on filedocumented in this encounter Care Teams Retail Seasonal Specialist Relationship Specialty Start Date End Date Miguel Shore MD [address] [place] [address] PCP - General 09/22/16 01/11/19 documented as of this encounter
--- OUTSIDE RECORDS SUMMARY | 2024-12-03 08:27 | XMS_ITS | Encounter Summary ---
Author Organization [facility] Address [address] [place], [place] [address] Phone Care Team Providers Care Perlite Grinder Name Role Phone Miguel Shore MD Primary Care Provider [phone] Encounter Details Date Type Department Care Team (Late st Contact Info) Description 11/19/2012 Documentation [facility] [place] [address] [place] [address] Family Medicine, Physician [address] [place], [place] [address] Social History Tobacco Use Types Packs/Day Years [...] on filedocumented in this encounter Care Teams Perlite Grinder Relationship Specialty Start Date End Date Miguel Shore MD [address] [place] [address] [place] [address] PCP - General 09/22/16 01/11/19 documented as of this encounter
--- OUTSIDE RECORDS SUMMARY | 2024-12-03 08:27 | XMS_ITS | Encounter Summary ---
Author Organization [facility] Address [address] [place], [place] [address] Phone Care Team Providers Care Jig Fitter Name Role Phone Miguel Shore MD Primary Care Provider Encounter Details Date Type Department Care Team (Late st Contact Info) Description 07/26/2011 Documentation [facility] [place] Family Medicine [address] [place] [address] Family Medicine, Physician [address] [place], [place] [address] Social History Tobacco Use Types Packs/Day Years [...] on filedocumented in this encounter Care Teams Jig Fitter Relationship Specialty Start Date End Date Miguel Shore MD [address] [place] [address] [place] [address] PCP - General 09/22/16 01/11/19 documented as of this encounter
--- OUTSIDE RECORDS SUMMARY | 2024-12-03 08:27 | XMS_ITS | Encounter Summary ---
Author Organization [facility] Address [address] [place] [address] Phone Care Team Providers Care Polisher Sand Name Role Phone Miguel Shore MD Primary Care Provider [phone] Encounter Details Date Type Department Care Team (Late st Contact Info) Description 05/19/2016 Documentation [facility] [place] Family Medicine [address] [place] [address] Family Medicine, Physician [address] [place], [place] [address] Social History Tobacco Use Types Packs/Day Years [...] on filedocumented in this encounter Care Teams Polisher Sand Relationship Specialty Start Date End Date Miguel Shore MD [address] [place] [address] [place] [address] PCP - General 09/22/16 01/11/19 documented as of this encounter
--- OUTSIDE RECORDS SUMMARY | 2024-12-03 08:27 | XMS_ITS | Encounter Summary ---
Author Organization [facility] Address [address] [place], [place] [address] Phone Care Team Providers Care Credentialing Coordinator Name Role Phone Miguel Shore MD Primary Care Provider [phone] Encounter Details Date Type Department Care Team (Late st Contact Info) Description 07/09/2013 Documentation [facility] [place] [address] [place] [address] Family Medicine, Physician [address] [place], [place] [address] Social History Tobacco Use Types Packs/Day Years [...] on filedocumented in this encounter Care Teams Credentialing Coordinator Relationship Specialty Start Date End Date Miguel Shore MD [address] [place] [address] [place] [address] PCP - General 09/22/16 01/11/19 documented as of this encounter
--- OUTSIDE RECORDS SUMMARY | 2024-12-03 08:27 | XMS_ITS | Encounter Summary ---
Author Organization [facility] Address [address] [place] [address] Phone Care Team Providers Care Capacity Analyst Name Role Phone Miguel Shore MD Primary Care Provider [phone] Encounter Details Date Type Department Care Team (Late st Contact Info) Description 05/19/2016 [place] [facility] [place] [address] [place] [address] Family Medicine, Physician [address] [place], [place] [address] Social History Tobacco Use Types Packs/Day Years [...] on filedocumented in this encounter Care Teams Capacity Analyst Relationship Specialty Start Date End Date Miguel Shore MD [address] [place] [address] [place] [address] PCP - General 09/22/16 01/11/19 documented as of this encounter
--- OUTSIDE RECORDS SUMMARY | 2024-12-03 08:27 | XMS_ITS | Data Portability ---
Author Organization [place] - [facility], Allergy Address [address] [address] Care Team Providers Care Music Director Name Role RAS Worrell Primary Care Provider [phone] Assessment Encounter Date Assessment Date Assessment LastModified by Organization Details LastModified Time 10/14/2024 10/14/2024 The patient has been experiencing symptoms consistent with patulous eustachian tube on the right, including hearing her own breathing and heartbeat. A tube placement in the eardrum was discussed as a potential treatment option. This procedure can be performed in the office under local anesthetic. The patient will be scheduled for this procedure, which typically lasts six months to a year. If the tube does not alleviate symptoms, alternative treatments will be considered. Nasal vestibulitis, left: The patient has a painful bump inside the left nostril consistent with nasal vestibulitis. A topical antibiotic cream will be prescribed to apply three times daily to both nostrils to address the infection. Patient education: The patient was counseled on the nature of her conditions and the proposed treatments. She was advised on the proper application of the nasal ointment and informed about the tube placement procedure, including its potential benefits and risks. Follow-up will be scheduled as needed based on the outcomes of the treatments. [email or web address] Not available 10/14/2024 15:25:22 Plan of Treatment Reminders Order Date Submit Date Provider Last Modified By Organization Details Last Modified Time Details Appointments PROCEDURE 15 2024 10:50A M JAROD CORRAL MD Not available Not available Not available Lab None recorded. Referral None recorded. Procedures None recorded. Surgeries None recorded. Imaging None recorded. Medication Orders mupirocin 2 % topical ointment 2024 025 [facility]/Pharmacy #[id number], [address] [place], [address], 10/14/2024 15:22:56 Patient TargetsNo targets recorded. Patient Instructions Encounter Date Encounter Id Patient Instructions Last Modified By Organization Details Last Modified Time 10/14/2024 [id number] Apply the prescribed nasal cream to both nostrils three times daily using a clean pinky finger with a short nail. Avoid applying the cream while driving or in public settings. Schedule the tube placement procedure at the front office assistant before leaving the office. [email or web address] Not available 10/14/2024 15:23:26 Please note: Parts of this encounter note have been generated by AI based on audio conversation. Patient consent was required prior to utilizing this technology. Content review was required prior to finalizing the note. [email or web address] Not available 10/14/2024 15:23:26 Reason for Referral None Reported. Results Created Date Observation Date Name Description Value Unit Range Abnormal Flag Note LastModifiedBy Organization Detail LastModifiedTime 10/16/19 audio gram No observ ation record ed. BARCODE Not Available 2024 10:00:45 11/22/19 audio gram No observ ation record ed. BARCODE Not Available 2024 08:56:00 Result Notes None recorded. Problems Name Problem SNOMED Code Status Onset Date Resolution Date Notes Provider Name and Address Organization Details Recorded Time Otalgia of right ear 6306115194 Active 2020 Otalgia, right ear; Note: Date Diagnosed : 09/02/2020 1:11 PM (H92.01) Not Available [facility] 4 03:16:14 Bilateral disorder of Eustachia n tubes 55158637673 29964 Active 2020 Other specified disorders of Eustachia n tube, bilateral ; Note: Date Diagnosed : 01/12/2021 4:35 PM (H69.83) Not Available [facility] 4 03:16:14 Hypertrop hy of nasal turbinate s 95691195 Active 2022 Hypertrop hy of nasal turbinate s; Note: Date Diagnosed : 3 4:12 PM (J34.3) Not Available [facility] 4 03:16:14 Allergic rhinitis 90807530 Active 2022 Other allergic rhinitis; Note: Date Diagnosed : 3 4:12 PM (J30.89) Not Available [facility] 4 03:16:14 Conductiv e hearing loss 69938884 Active 2022 Conductiv e hearing loss, unilatera l, right ear, with unrestric olivia hearing on the contralat eral side; Note: Date Diagnosed : 3 5:07 PM (H90.11) Not Available [facility] 4 03:16:15 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 Procedures Surgical History Date Name Laterality Status Provider Name and Address Organization Details Recorded Time 10/30/2024 Air & Speech Audio with Tymps - 67840, 06028 & 23762 completed ANT PATTERSON MA, [facility] [address] [place] [address], [address], [facility] - [facility] 10/30/2024 09:57:13 10/14/2024 Air & Speech Audio with Tymps - 61940, 06723 & 32770 completed ANT PATTERSON MA, [facility] [address] [place] [address], [phone], [facility] - [facility] 10/14/2024 14:47:03 Imaging Results None recorded. Procedure Notes None recorded. Medical Equipment None Reported. Allergies Allergen ID Allergen Name Allergen Category Reaction Reaction Severity Criticality Documentation Date Start Date Code Code System Note Provider Name and Address Organization Details Recorded Time 650875 chocolate flavor food,medi cation other Not available Not available 06/26/2023 React ion: other react ion, Unkno wn; Not Available [facility] 4 01:15:54 675856 cat dander environme nt other Not available Not available 06/26/2023 React ion: other react ion, Unkno wn; Not Available [facility] 4 01:15:55 051480 nut - unspecifi ed food other Not available Not available 06/26/2023 React ion: other react ion, Unkno wn; Not Available [facility] 4 01:15:56 Medications Name Sig Start Date Stop Date Status Note LastModified by Organization Details LastModified Time cetirizin e 10 mg tablet 1 TABLET DAILY active Not Available Not Available No t Available methylphe nidate 10 mg tablet TAKE 1 TABLET BY MOUTH TWICE A DAY active Not Available Not Available No t Available phentermi ne 15 mg capsule TAKE 1 CAPSULE BY MOUTH EVERY MORNING. 10/14 completed Not Available Not Available Not Available Adderall XR 20 mg capsule,e xtended release 12/06 completed Medicati on ID: [id number] B rand Name: Adderall XR Send Method: E-Prescr ibed Sub s Allowed: subs OK Medic ationGen ericName : Adderall XR Not Available Not Available Not Available betametha sone dipropion ate 0.05 % topical cream PLEASE SEE ATTACHED FOR DETAILED DIRECTIO NS 10/14 completed Not Available Not Available Not Available sertralin e 25 mg tablet TAKE 1 TABLET BY MOUTH EVERY DAY active Not Available Not Available No t Available mupirocin 2 % topical ointment APPLY A SMALL AMOUNT TO AFFECTED AREA 3 TIMES A DAY TOPICALL Y active Not Available Not Available No t Available azelastin e 137 mcg (0.1 %) nasal spray Inhale 2 spray twice a day as directed 10/14 completed Medicati on ID: [id number] D uration Value: 30 Brand Name: rachaelstjg ne Send Method: E-Prescr ibed Sub s Allowed: subs OK Medic ationGen ericName : azelasti ne Not Available Not Available Not Available epinephri ne 0.3 mg/0.3 mL injection , auto-inje ctor USE DIRECTED FOR ANAPHYLA XIS THEN CALL 911 AFTER USE active Not Available Not Available No t Available albuterol sulfate HFA 90 mcg/actua tion aerosol inhaler TAKE 2 PUFFS BY MOUTH EVERY 4 HOURS NEEDED active Not Available Not Available No t Available fluticaso ne propionat e 50 mcg/actua tion nasal spray,stormy pension 2 puff once a day 10/14 completed Medicati on ID: [id number] D uration Value: 30 Brand Name: fluticas one propiona te Send Method: E-Prescr ibed Sub s Allowed: subs OK Medic ationGen ericName : fluticas one propiona te Not Available Not Available Not Available clindamyc in 1 % lotion APPLY TO THE INFLAMED LESIONS ON THE FACE IN THE MORNING active Not Available Not Available No t Available bupropion HCl XL 300 mg 24 hr tablet, extended release 10/14 completed Medicati on ID: [id number] B rand Name: bupropio n HCl Send Method: E-Prescr ibed Sub s Allowed: subs OK Medic ationGen ericName : bupropio n HCl Not Available Not Available Not Available (28) 1.5 mg-30 mcg (21)/75 mg (7) tablet TAKE 1 TABLET BY MOUTH EVERY DAY active Not Available Not Available No t Available fluticaso ne propionat e 115 mcg-salme terol 21 mcg/actua tion HFA inhaler TAKE 2 PUFFS BY MOUTH TWICE A DAY active Not Available Not Available No t Available Vyvanse 40 mg capsule 10/14 completed Medicati on ID: [id number] B rand Name: Vyvanse Send Method: E-Prescr ibed Sub s Allowed: subs OK Medic ationGen ericName : Vyvanse Not Available Not Available Not Available Vitals None Recorded Social History None recorded. Functional Status None recorded. Mental Status None recorded. Family History Nothing Reported. Medical History Condition Response Anxiety Y Depression Y Asthma Y Gynecological HistoryNo gynecological history recorded. Obstetrics History GPAL:G 0 P 0 0 0 0 Past Encounters Encounter ID Performer Location Encounter Start Date Encounter Closed Date Diagnosis/Indication Diagnosis SNOMED-CT Code Diagnosis ICD10 Code Diagnosis IMO Codes Diagnosis Note [id number] JAROD CORRAL MD [facility] [address] [address] 10/14/2024 14:13:27 10/14/2024 15:24:06 Atrophic flaccid right tympanic membrane [id number] 936552 H73.811 Patulous r ight Eustachian tube 6050964785 083079 H69.01 Nasal vestibulitis 10894 000 J34.89 [id number] ANT PATTERSON MA, CCC-A [facility] [address] [address] 10/14/2024 14:15:34 10/14/2024 14:45:56 Atrophic flaccid right tympanic membrane 4585769494 062417 H73.811 Audiologic al evaluation results: Right ear: Normal hearing with excellent word recognitio n. Left ear: Normal hearing with excellent word recognitio n. Tympanomet ry: Right Ear:Type Ad ( 2.3) Left Ear:Type Ad ( 3.1) [id number] ANT PATTERSON MA, CCC-A [facility] [address] [address] 10/30/2024 09:56:04 10/30/2024 11:42:58 Otalgia of right ear 5982641686 H92.01 Audiologic al evaluation results: Right ear: Normal/ borderline normal hearing with excellent word recognitio n. Left ear: Normal hearing with excellent word recognitio n. Tympanomet ry: Right Ear:Type Ad (2.3) Left Ear:Type Ad (3.1) Health Concerns Section Related Observation LastModified by Organization Detai ls LastModified Time None Recorded Concern Status LastModified by Organization Details LastModified Time None Recorded Advance Directives Directive None Recorded Payers Insurance Date Sequence Insurance Name Policy Number Policy Schofield Covered Member ID Schofield Member ID Guarantor Name 11/16/2024 2 [place]ICAID[place] [facility] [place] [id number] [place] 11/19/2024 1 [place] B[place] [facility] [place] [id number] [place] 07/31/2024 2 [place] [facility] [place] [id number] [place] Notes Date Note Type Note Provider Name and Address Organization Details Recorded Time 10/14/2024 text/html Longstanding ANT PATTERSON MA, [facility] [address] [place] [address], [phone], [facility] - [facility] 11/27/2024 16:53:22 10/14/2024 text/html 18-year-old female with longstanding history of allergy. I evaluated her back in January 2023 at which point patient was clearly demonstrating signs of patulous eustachian tube on the right. Nasopharyngoscopy negative. I discussed the use of OTC compound Patulend versus consultation with Dr. Mike Mendoza at [facility] versus consideration of placement of tympanostomy tube in the office. This was never carried out. Additionally, she reports a painful bump inside her left nostril, which has been present for a few days and was initially thought to be a pimple. She notes similar symptoms previously on the opposite nostril. JAROD CORRAL MD [address] [place] [address], [phone], [facility] - [facility] [place] 10/14/2024 15:25:36 10/30/2024 text/html Hx middle ear dysfunction ANT PATTERSON MA, [facility] [address] [place] [address], [address], [facility] - [facility] [place] 10/30/2024 09:59:14 OBGyn Episode No OBEpisode recorded.
--- OUTSIDE RECORDS SUMMARY | 2024-12-03 08:27 | XMS_ITS | Encounter Summary ---
Author Organization [facility] Address [address] [place], [place] [id number] Phone Care Team Providers Care Caseworker Name Role Phone Miguel Shore MD Primary Care Provider [phone] Encounter Details Date Type Department Care Team (Late st Contact Info) Description 05/25/2011 Documentation [facility] Family Medicine [address] [place] [address] Family Medicine, Physician [address] [place], [place] [address] Social History Tobacco Use Types Packs/Day Years [...] on filedocumented in this encounter Care Teams Caseworker Relationship Specialty Start Date End Date Miguel Shore MD [address] [place] [address] [place] [address] PCP - General 09/22/16 01/11/19 documented as of this encounter
--- OUTSIDE RECORDS SUMMARY | 2024-12-03 08:27 | XMS_ITS | Encounter Summary ---
Author Organization [facility] Address [address] [place], [place] [address] Phone Care Team Providers Care Molding Room Supervisor Name Role Phone Miguel Shore MD Primary Care Provider [phone] Encounter Details Date Type Department Care Team (Late st Contact Info) Description 04/07/2010 Documentation [facility] [place] [address] [place] [address] Family Medicine, Physician [address] [place], [place] [address] Social History Tobacco Use Types Packs/Day Years [...] on filedocumented in this encounter Care Teams Molding Room Supervisor Relationship Specialty Start Date End Date Miguel Shore MD [address] [place] [address] [place] [address] PCP - General 09/22/16 01/11/19 documented as of this encounter
--- OUTSIDE RECORDS SUMMARY | 2024-12-03 08:27 | XMS_ITS | Encounter Summary ---
Author Organization [facility] Address [address] [place], [place] [address] Phone Care Team Providers Care Lead Clinical Research Coordinator Name Role Phone Miguel Shore MD Primary Care Provider [phone] Encounter Details Date Type Department Care Team (Late st Contact Info) Description 01/01/2013 Documentation [facility] Family Medicine [address] [place] [address] Family Medicine, Physician [address] [place], [place] [address] Social History Tobacco Use Types Packs/Day Years [...] on filedocumented in this encounter Care Teams Lead Clinical Research Coordinator Relationship Specialty Start Date End Date Miguel Shore MD [address] [place] [address] [place] [address] PCP - General 09/22/16 01/11/19 documented as of this encounter
--- OUTSIDE RECORDS SUMMARY | 2024-12-03 08:27 | XMS_ITS | Clinical Summary ---
Author Organization [facility] Address [address] [place] [id number] Phone Care Team Providers Care Gate Manager Name Role Phone Unavailable Primary Care Provider Unavailabl e Allergies Active Allergy Reactions Criticality Noted Date Comments Cat Dander 10/09/2018 Chocolate Hazelnut Flavoring Agent (Non-Screening) 07/19/2020 Hazelnut Food Rash Low 10/24/2017 Pistachio, cashew's, almond, pecan, sesame, brazil nut Penicillins 10/09/2018 Mom reports allergy to pcn and amoxicillin Tree Nuts (Food) 12/23/2019 Medications Spacer/Aero-Hold ing Chambers (OPTICHAMBER GALLITO) misc OPTICHAMBER GALLITO; inhale by Inhalation route use c MDI as directed.; 09/11/2016; Active 7 Active Respiratory Therapy Supplies (PILLOW MASK/CHILD) [facility] PILLOW MASK; tubing, nebulizer and nouthpeice to deliver albuterol every 4 hours as needed.; 09/12/2016; Active 7 Active Emollient (CERAVE) cream CERAVE; apply box by topical route every day; 11/04/2015; Active 6 Active triamcinolone 0.1 % creamIndications :Flexural atopic dermatitis Apply to affected areas twice a day 80 g 11 8 Active cholecalciferol 1000 units chewable tablet Chew 1,000 Units daily. Active ibuprofen 200 MG tabletIndication s:Moderate persistent asthma, unspecified whether complicated Take 2 tablets (400 mg total) by mouth every 6 (six) hours as needed for moderate pain. 60 tablet 1 9 Active Nac 600 600 MG capsule TK 1 C PO BID 3 0 Active albuterol (2.5 MG/3ML) 0.083% nebulizer solutionIndicati ons:Moderate persistent asthma with acute exacerbation USE 1 VIAL VIA NEBULIZER EVERY 4 HOURS NEEDED FOR WHEEZING 180 mL 1 Active fluticasone (Flonase) 50 MCG/ACT nasal sprayIndications :TERRI (middle ear effusion), bilateral Administer 1 spray into each nostril daily. 1 Units 5 1 Active cetirizine 10 MG tabletIndication s:Allergy, sequela TAKE 1 TABLET BY MOUTH DAILY 30 tablet 2 2 Active EPINEPHrine 0.3 MG/0.3ML injection syringe INJECT 1 PEN IN THE MUSCLE ONE TIME DIRECTED FOR ANAPHYLAXIS THEN CALL 911 AFTER USE 2 Active Dupixent 300 MG/2ML solution pen-injector 3 Active hydrocortisone 2.5 % ointment APPLY TO THE FACE TWICE DAILY FOR ONE WEEK, BREAK FOR ONE WEEK, REPEAT NEEDED. 4 Active betamethasone dipropionate 0.05 % cream APPLY TO THE ARMS TWICE DAILY FOR TWO WEEKS, BREAK ONE WEEK. REPEAT NEEDED. 3 Active Azelastine HCl 137 MCG/SPRAY solution USE 2 SPRAYS NASALLY TWICE A DAY DIRECTED 3 Active phentermine 15 MG capsule Take 15 mg by mouth every morning. 4 Active Ventolin HFA 108 (90 Base) MCG/ACT inhalerIndicatio ns:Moderate persistent asthma, unspecified whether complicated Inhale 2 puffs every 4 (four) hours as needed for wheezing. One for home, one for school. 2 Units 4 Active norethindrone-et hinyl estradiol-iron ( FE ) 1.5-30 MG-MCG per tabletIndication s:Irregular menses Take 1 tablet by mouth daily. 84 tablet 3 4 Active Active Problems Problem Noted Date Diagnosed Date Episodic tension-type headache, not intractable 01/25/2024 Assessment & Plan (01/25/2024 3:32 PM EST): 01/25/2024 (age 18yr): Right frontal intermittent PAZ associate with tenderness of right frontal part of head x 5 weeks. PAZ is twice weekly lasting less than 2 hours and typically resolved without medication. No red flags or associated Sx. PAZ was signficicantly worse x 2 weeks during this time when pt had tight radha in her hair, and she felt immediate/significant releif when radha were removed. - OK to monitor PAZ for now as pt is not too bothered by or concerned about the symptoms. Irregular menses 05/23/2021 Overview (11/01/2023): 11/01/2023 (age 17 y.o.): Refill OCPs, doing well. Started 08/08/2021 (age 15yr 8mo) to maintain regular periods. Mother aware. PCOS Labs were normal 08/2019. Detailed History and Chronology of care: 05/23/2021 (age 15yr 5mo): Irregular menses, would like OCPs, discussed all options. Work up for irregular menses was negative 08/2019. She is interested in starting OCPS to regulate her periods. No migraines, no FHx blood clot, no TOB. We will give it 4 more weeks to see if her period starts. If it does, she will call to let me know, and I will call her to review Rx and call it in. If not, we will consider provera challenge vs SLIP SEAT COVERER referral. Mom not aware La's request for Rx for OCPs despite La not being SA. Will follow up at well visit 07/2021. 06/28/2021 (age 15yr 7mo): Mom requesting endo referral for amenorrhea. This is appropriate. She will schedule an appointment. Assessment & Plan (11/01/2023 1:33 PM EDT): 11/01/2023 (age 17 y.o.): Refill OCPs, doing well. Started 08/08/2021 (age 15yr 8mo) to maintain regular periods. Mother aware. PCOS Labs were normal 08/2019. Assessment & Plan (10/04/2022 9:10 AM EDT): 10/04/2022 (age 16yr): Refill OCPs Assessment & Plan (08/09/2022 11:54 AM EDT): 08/09/2022 (age 16yr): continues on OCPS Assessment & Plan (10/04/2021 5:23 PM EDT): 10/04/2021 (age 15yr 10mo):: Started Junel 08/08/2021 (age 15yr 8mo) to maintain regular periods. Mother aware. Has endo appt for 10/2021 for irregular periods and obesity. PCOS Labs were normal 08/2019. La has been doing well on her OCP, has not missed any doses. She is getting headaches lasting only a few minutes about once per week. She is having some cramping. Overall she is happy with the OCPs. PCOS Labs were normal 08/2019. Assessment & Plan (08/08/2021 12:37 PM EDT): 08/08/2021 (age 15yr 8mo): La had a period of amenorrhea but restarted her period and it has been regular x 2 cycles. LMP started 4 days ago. Will start Junel today to maintain regular periods.Mother aware. Has endo appt for 10/2021 for irregular periods and obesity. PCOS Labs were normal 08/2019. Follow up 2 months Assessment & Plan (05/23/2021 5:25 PM EDT): 05/23/2021 (age 15yr 5mo): Irregular menses, would like OCPs, discussed all options. Work up for irregular menses was negative 08/2019. She is interested in starting OCPS to regulate her periods. No migraines, no FHx blood clot, no TOB. We will give it 4 more weeks to see if her period starts. If it does, she will call to let me know, and I will call her to review Rx and call it in. If not, we will consider provera challenge vs SLIP SEAT COVERER referral. Mom not aware La's request for Rx for OCPs despite La not being SA. Will follow up at well visit 07/2021. Failed hearing screening 07/19/2020 Overview (02/14/2023): 07/19/2020 (age 14yr 7mo):Complaints of muffled hearing on right. 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 Referred to ENT. 08/09/2022 (age 16yr): Per pt has see ENT and they need follow up. No note in chart. - Last Specialist Visit: 01/25/[address] Drake. Patulous R eustacian tube. Temporizing measure of R tympanostomy tube placed. Follow up in a few weeks. Assessment & Plan (08/09/2022 11:13 AM EDT): 08/09/2022 (age 16yr): Per pt has see ENT and they need follow up. No note in chart. Assessment & Plan (07/19/2020 5:11 PM EDT): 07/19/2020 (age 14yr 7mo): Failed hearing screen and perforation of TM on tympanogram. Referred to ENT. School failure 07/19/2020 Overview (08/08/2021): 08/08/2021 (age 15yr 8mo): Still struggling with school. La did pass the year but mom reports she is not progress academically. Has IEP. Some As/ B and D/F in [place]/reading and writing. La does not easily accept help. Seeing psych at [facility]. Mom has had concerns about La's ability to live independantly. [facility] [place] but now La has psych at [facility]. Detailed History and Chronology of care: 07/19/2020 (age 14yr 7mo): La thinks the work is too hard. It looks like she will fail the year. Mom thinks it might be related to remote schooling. She had done well in years past. Has IEP. 08/17/2020 (age 14yr 8mo): Mom is worried about whether La will be able to take care of herself when she turns 16. She states that she doesn't understand money at all. La herself says she thinks she would have a hard time living on her own at 16 and wouldn't mind having her mother's help. La does have an IEP and has had sp Psychoeducational testing in 2019. Will ask care coodinators to discuss this issue with mom. 10/15/2020 (age 14yr 10mo): Discussed with Justin - she will review chart and get back to me - we will consider repeat neurpsych eval. 08/07/2021 (age 15yr 8mo): Now seeing psych at [facility]. On vyvanse and fluoxetine 60 mg. 08/08/2021 (age 15yr 8mo): Still struggling with school. La did pass the year but mom reports she is not progress academically. Has IEP. Some As/ B and D/F in [place]/reading and writing. La does not easily accept help. Seeing psych at [facility]. Assessment & Plan (08/08/2021 12:17 PM EDT): 08/08/2021 (age 15yr 8mo): Still struggling with school. La did pass the year but mom reports she is not progress academically. Has IEP. Some As/ B and D/F in [place]/reading and writing. La does not easily accept help. Seeing psych at [facility]. Mom has had concerns about La's ability to live independantly. [facility] [place] but now La has psych at [facility]. Assessment & Plan (08/17/2020 12:47 PM EDT): 08/17/2020 (age 14yr 8mo): Mom is also worried about whether La will be able to take care of herself when she turns 16. She states that she doesn't understand money at all. La herself says she thinks she would have a hard time living on her own at 16 and wouldn't mind having her mother's help. La does have an IEP and has had sp Psychoeducational testing in 2019. Will ask care coodinators to discuss this issue with mom. Assessment & Plan (07/19/2020 4:45 PM EDT): 07/19/2020 (age 14yr 7mo): La thinks the work is too hard. It looks like she will fail the year. Mom thinks it might be related to remote schooling. She had done well in years past. Has IEP. 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 Mom wants La on meds. Has walk in clinic number - Last Specialist Visit: 06/20/2022 -09/23/22 : [facility] plan for 12 individual and family therapy sessions. Work on calming strategies, aerobic exercise, and habit reversal skills. On wellbutrin 11/22/2022 (age 16yr): Asking for med refill for wellbutrin. Gave number for [facility] walk in clinic. On waiting list for psych through [facility]. History 11/2018: Started Fluoxetine 10/31/2019 Sees provider (Dr. Lester) at [facility]. On Adderal 30 and fluoxetine 20 mg. 11/2019: Fluoxetine increased from 20 mg to 30 mg. 03/08/2020: Adderal XR decreased from 30 mg to 20 mg. Clonidine discontinued. 03/16/2020: Discharged from [facility] due to not needing therapy for anxiety. I will take over prescribing fluoxetine. La can come back to [place] (therapist) and Dr. Lester at [facility] if she runs in to issues. 07/05/2020 (age 14yr 7mo): Increase fluoxetine from 30 mg to 40 mg for increased sleeping and increased self isolation. In PHQ9 and TANYA 7 as well. 12/20/2020 (age 15yr 0mo) has been a little better. Socializing more, seems happier, is on waiting list for [facility].. refer to [facility] program for treatment of ADHD, anxiety, depresion, skin picking, and to address mom's question about whether La can live on her own. Assessment & Plan (10/31/2023 2:04 PM EDT): 10/31/2023 (age 17 y.o.): No current meds, still has provider but hasn't seen them. Mom wants La on meds. Has walk in clinic numbers Assessment & Plan (08/09/2022 11:51 AM EDT): 08/09/2022 (age 16yr): Missed an appt at [facility] and her therapist is also moving to [place]. She may need to go back on the waiting list. Has been continuing with [facility] psych for now. Will be changing meds. - Last Specialist Visit: 06/20/2022: [facility] initial evaluation, plan for 12 individual and family therapy sessions. Work on calming strategies, aerobic exercise, and habit reversal skills. - will ask [facility] [place] mom with walk [place] clinic information. Assessment & Plan (03/22/2022 3:46 PM EST): 03/22/2022 (age 16yr): Had a psychiatrist but was unable to keep seem them after the age of 16. Needs a new psychiatrist. Gave psych list. Assessment & Plan (08/08/2021 12:13 PM EDT): 08/07/2021 (age 15yr 8mo): Now followed by [facility] psych, Continues on fluoxetine, now at 60 mg. [place] Assessment & Plan (12/20/2020 9:18 PM EST): 12/20/2020 (age 15yr 0mo): Has been on fluoxetine since 11/2018. 07/05/2020 Increase fluoxetine from 30 mg to 40 mg for increased sleeping and increased self isolation. Today, She has been a little better. Socializing more, seems happier. Her anxiety seems better. Mom called [facility] to get back to previous psychiatrist, is on waiting list. Will refer to [facility] program for treatment of ADHD, anxiety, depresion, skin picking, and to address mom's question about whether La can live on her own. Assessment & Plan (08/17/2020 12:54 PM EDT): 08/17/2020 (age 14yr 8mo): La is not doing well according to mom. She has low motivation and would prefer to sleep all day. La agrees that she is not motivated. She would like to do a [facility] program that she had done in the past, but is not interested in doing it virtually. La's mother would like to see her go back to [facility] to see the psychiatrist, psychiatrist, and airframe and power plant mechanic that she has seen in the past. We may need another follow up depending on whether and when mom gets the appointment with [facility]. Mom states she has the number and can take care of it. Assessment & Plan (07/19/2020 5:21 PM EDT): 07/19/2020 (age 14yr 7mo): no side effects on 40 mg fluoxetine, Dose was increased 07/05/2020. PHQ9 is down. We will follow up 08/17/2020. Assessment & Plan (07/05/2020 5:00 PM EDT): 07/05/2020 (age 14yr 7mo): Today, PHQ9 is up from 6 to 12, TANYA 7 up from 2 to 5 since 08/2019. It is unclear if this is a change since March when therapy was discontinued. She has continued with fluoxetine 30 mg and rarely misses a dose. Mom reports that La is sleeping more and eating more (which she does when she is anxious). She has gained 6 lbs since February. Mom is very concerned about her withdrawal into her room. Sh often refuses to come out and go places with mom. La states that people annoy her, but she feels better when she's alone in her room. No SI. Mom would like increase her fluoxetine, and pt agrees thi s may be helpful. The skin picking has improved. - increase fluoxetine from 30 mg to 40 mg. - check for side effects at well visit in 2 weeks - recheck 4-6 weeks Assessment & Plan (04/06/2020 6:49 PM EST): 04/06/2020 (age 14yr 4mo): La has been on fluoxetine since 11/2018. On 02/2020 fluoxetine was increased from 20 mg to 30 to help with anxiety and skin picking, which improved her symtpoms. . Clonidine discontinued. La does not want to decrease fluoxetine now, could consider in 6 months (09/2020). La reports no side effects with the medication, though she had headaches with fluoxetine initially, but they improved. Will plan to continue fluoxetine 30 mg for now, follow up in 3 months. Assessment & Plan (04/04/2020 9:41 AM EST): 03/16/2020 (age 14 yr 3 mo): I spoke with Dr. Christa Lester. Fluoxetine was started 11/2018, increased to 30 mg 11/2019. It has helped with irritability skin picking, anxiety. La was not willing to decrease her fluoxetine. She is doing well in school, sleeping well, less defiant. Addreall xr was decreased from 30 mg to 20 mg. Could bring up the possibility of tapering in 6 months. She can come back to [place] and Dr. Lester at [facility] if she runs in to issues. She has currently met all the goals of therapy. I will require a virtual visit with La to take over her prescriptions. Regular astigmatism of both eyes 12/05/2017 Overview (12/05/2017): Glasses from optometry Skin-picking disorder 05/02/2017 Overview (08/09/2022): 08/09/2022 (age 16yr): . Has anxiety and eczema. Would like to try dupixent. Refer to derm, can not longer see [facility] derm (see problems). Has [facility] psych for now, Continues on fluoxetine, now at 60 mg. - Last Specialist Visit: 06/20/2022: [facility] initial evaluation, plan for 12 individual and family therapy sessions. Work on calming strategies, aerobic exercise, and habit reversal skills. History: Has been followed by [facility] in the past, lost to follow up 11/2018: Started fluoxetine for anxiety/skin picking 10/31/2019 Sees provider at [facility]. On Adderal 30 and fluoxetine 20 mg. 03/08/2020: Referred to payable manager and airframe and power plant mechanic locally. 03/16/2020: good result with fluoxetine 30 mg, I will take over Rx from Dr. Lester at [facility]. 07/19/2020 (age 14yr 7mo): Mom plans to make appt with Derm. [facility]. 03/08/2020 (age 14 yr 3 mo): Has been followed by [facility], but mom would like see local dermatolgist. Referred today. Using triamcinolone/CeraVe compound inconsistently. On fluoxetine with good result. See anxiety problem for details. Assessment & Plan (08/09/2022 11:12 AM EDT): 08/09/2022 (age 16yr): Would like to try dupixent. Refer to derm, can not longer see [facility] derm. Assessment & Plan (03/22/2022 3:47 PM EST): 03/22/2022 (age 16yr): Skin breakdown without signs of infection on right breast. This has been a chronic problem for La and she has seen multiple specialists for this. Will heal slowly after she stops picking at it. Discussed. Assessment & Plan (08/08/2021 12:33 PM EDT): 08/08/2021 (age 15yr 8mo): Has anxiety and eczema (see prblems. Now followed by [facility] psych, Continues on fluoxetine, now at 60 mg. Plans to see Derm in [facility]. Assessment & Plan (12/20/2020 9:21 PM EST): 12/20/2020 (age 15yr 0mo): . Mom called [facility] to get back to previous psychiatrist, is on waiting list. Will refer to [facility] for treatment of ADHD, anxiety, depresion, skin picking, and to address mom's question about whether La can live on her own. Rx neosporin as requested by mom today. Assessment & Plan (07/19/2020 4:32 PM EDT): 07/19/2020 (age 14yr 7mo): Mom plans to make appt with Derm. [facility]. Assessment & Plan (05/18/2020 12:38 PM EDT): 05/18/2020 (age 14yr 5mo): New lesions today related to skin picking on right breast. No signs of infection. Will treat with antibiotic ointment and nonstick dressing. Continue fluoxetine 30 mg. Assessment & Plan (04/04/2020 9:48 AM EST): 03/16/2020: I spoke with Dr. Christa Lester at [facility]. She has currently met all the goals of therapy there and I will take over Rx of Fluoxetine for anxiety and skin picking. Fluoxetine was started 11/2018, increased to 30 mg 11/2019. It has helped with irritability skin picking, anxiety. La was not willing to decrease her fluoxetine. Assessment & Plan (03/08/2020 2:51 PM EST): 1 cm round area denuded from pick on right breast. Plan to use triple abx ointment and bandage. She has had this many times before. Assessment & Plan (05/23/2019 1:51 PM EDT): 05/23/2019 La is feeling anxious, and her skin picking is worse. Mom has not yet reached out to her psychiatrist or her therapist. This is likely related to increased anxiety about the covid 19 pandemic. Mom wiill reach out if she is unable to conect with her care providers. ADD (attention deficit disorder) without hyperac tivity 09/11/2016 Overview (10/31/2023): 10/31/2023 (age 17 y.o.): No current meds, still has provider but hasn't seen them. Mom wants La on meds. Has walk in clinic number Detailed History and Chronology of care: 11/2018: Started Fluoxetine 10/31/2019 Sees provider (Dr. Lester) at [facility]. On Adderal 30 and fluoxetine 20 mg. 11/2019: Fluoxetine increased from 20 mg to 30 mg. 03/08/2020: Adderal XR decreased from 30 mg to 20 mg. Clonidine discontinued. 03/16/2020: Discharged from [facility] due to not needing therapy for anxiety. I will take over prescribing ADHD medication. can come back to [place] and Dr. Lester at [facility] if she runs in to issues. 08/17/2020 (age 14yr 8mo): La is not doing well, mostly related to anxiety/depression. Mom plans to transfer care to [facility]' psychiatry where she has been seen before. She cannot go back to [facility] according to mom. 12/20/2020 (age 15yr 0mo): Doing well on Addreall xr 20 mg. Will refer to [facility] for treatment of ADHD, anxiety, depresion, skin picking, and to address mom's question about whether La can live on her own. Assessment & Plan (10/31/2023 4:33 PM EDT): 10/31/2023 (age 17 y.o.): No current meds, still has provider but hasn't seen them. Mom wants La on meds. Has walk in clinic number Assessment & Plan (08/09/2022 11:50 AM EDT): 08/09/2022 (age 16yr): Missed an appt at [facility] and her therapist is also moving to [place]. She may need to go back on the waiting list. Has been continuing with [facility] psych for now. Will be changing meds. - Last Specialist Visit: 06/20/2022: [facility] initial evaluation, plan for 12 individual and family therapy sessions. Work on calming strategies, aerobic exercise, and habit reversal skills. - [place] [facility] [place] information. Assessment & Plan (03/22/2022 3:46 PM EST): 03/22/2022 (age 16yr): Had a psychiatrist but was unable to keep seem them after the age of 16. Needs a new psychiatrist. Gave psych list. Assessment & Plan (08/08/2021 12:12 PM EDT): 08/07/2021 (age 15yr 8mo): Now followed by [facility] psych, on vyvanse started 04/20/2021. Assessment & Plan (02/17/2021 12:39 PM EST): 02/17/2021 (age 15yr 2mo): Failed school, having trouble concentrating, mom thinks the dose needs to be increased. However she picks her skin when she has a higher dose of adderall. [facility] will not be able to see her as mom had hoped. Would like a referral to [facility] program ([facility]) Assessment & Plan (12/20/2020 9:21 PM EST): 12/20/2020 (age 15yr 0mo): Doing well on addrerall 20 mg. Clonidine discontinued. May need 30 mg dosage for in person school in the future. . Mom called [facility] to get back to previous psychiatrist, is on waiting list. Will refer to [facility] program for treatment of ADHD, anxiety, depresion, skin picking, and to address mom's question about whether La can live on her own. Assessment & Plan (08/17/2020 12:52 PM EDT): 08/17/2020 (age 14yr 8mo): La is continuing on her adderall xr 20 mg over the summer. Without it, La's mother states that La is aggressive and angry. Both La and her mother think that the 20 mg isn't lasting as long as might be needed for school. Mom plans to transfer care to [facility], where she has been seen before. We may need another follow up depending on whether and when mom gets the appointment with [facility]. Mom states she has the number and can take care of it. Assessment & Plan (07/05/2020 4:58 PM EDT): Today, La reports that she is back in school in person and the adderall 20 mg is working well enough for her. When they increase the dose to 30 mg, her skin picking gets worse. May need 30 mg dosage for in person school. Assessment & Plan (04/06/2020 6:50 PM EST): 04/06/2020 (age 14yr 4mo): On 02/2020 addreall xr decreased 30 mg to 20 mg , and fluoxetine was increased from 20 mg to 30 to help with anxiety and skin picking. Clonidine discontinued. Discharged from [facility] due to not needing therapy for anxiety, I will take over psych med prescriptions. According to [facility], La has been stable on Adderal xr. Stable on adderall XR 20 mg for now. Gets increased skin picking on 30 mg but may need increased dosage for in person school, which is longer than the current [facility] [employer] school schedule. Has dysregulated emotions off meds. Continue adderall xr 20 mg for now, follow up in 3 months Assessment & Plan (04/04/2020 9:35 AM EST): 03/16/2020: I spoke with Dr. Christa Lester, treating psychiatrist at [facility]. Fluoxetine was started 11/2018, increased to 30 mg 11/2019. It has helped with irritability skin picking, anxiety. La was not willing to decrease her fluoxetine. She is doing well in school, sleeping well, less defiant. Addreall xr was decreased from 30 mg to 20 mg. Could bring up the possibility of tapering in 6 months. She can come back to [place] and Dr. Lester at [facility] if she runs in to issues. She has currently met all the goals of therapy. I will require a virtual visit with La to take over her prescriptions. Assessment & Plan (03/08/2020 8:03 PM EST): 03/08/2020 (age 14 yr 3 mo): dose was decreased from addreall 30 mg to 20 mg, and fluoxetine was increased from 20 mg to 30 to help with anxiety and skin picking. Planned to stop clonidine. Still getting therapy at [facility] currently. Allergy 11/06/2013 Overview (05/26/2024): 11/01/2023 (age 17 y.o.): Sees payable manager - Last Specialist Visit: 05/22/2024 [facility]. Allergic reaction, asthma with exacerbation, allergic rhintis. Already as allergy to sesame seed, pecan, pistachio. Cahsew, walnut. Immunocap for tree nut a sesame. Start advair, continue dupixent and TAC, recommned allergy shots. Follow up 3 months asthma recheck Detailed History and Chronology of care: 03/08/2020 (age 14 yr 3 mo): Tested by Dr Lopez. Tested positive to Cashews only. Subsequent testing at [facility] was positive to cats, dogs, pollens.Would like to see local payable manager for asthma allergy care. Would like to start allergy shots. La has a dog at home and is exposed to cats. Referred today. 05/18/2020 (age 14yr 5mo): Appointment with SKYLAR coming up on 05/21/2020. 07/14/2020 [employer] [employer] visit, La is on zyrtec and is allergic to tree nuts except for almonds. Plan was follow up for allergy testing. . Assessment & Plan (11/01/2023 1:31 PM EDT): 11/01/2023 (age 17 y.o.): Sees payable manager Assessment & Plan (08/09/2022 11:52 AM EDT): 08/09/2022 (age 16yr): Has appt at [facility] to discuss allergy shots today. Assessment & Plan (08/08/2021 12:14 PM EDT): 08/08/2021 (age 15yr 8mo): Per mom started allergy shots, following with payable manager. Assessment & Plan (07/19/2020 5:21 PM EDT): 07/19/2020 (age 14yr 7mo): Saw payable manager, 'allergic to everything'. Still taking claritin, flonase. May start allergy shots. Assessment & Plan (03/08/2020 2:38 PM EST): 03/08/2020 (age 14 yr 3 mo): Here for asthma f/u. Had mild flair due to running out of asthma meds. Would like to see local payable manager for asthma allergy care. Would like to start allergy shots. La has a dog at home and is exposed to cats. Assessment & Plan (10/31/2019 5:03 PM EDT): 10/31/2019 (age 13 yr 11 mo): wheezing a little bit lately. Using air duo and singular. Due for follow up with providers at [facility]. 05/23/2019 La will plan to get eval for allergy shots when covid 19 pandemic has subsided. Rx'd claritin and ketotifen for itchy eyes today. She is already on singulair daily. Assessment & Plan (05/23/2019 1:49 PM EDT): 05/23/2019 La is having itchy eyes. She is already taking singulair for he asthma. She does not take clariting because it is too expensive, she uses bendryl instead. Today I will start claritin 10 mg and ketotifen eye drops. La will plan to get eval for allergy shots when covid 19 pandemic has subsided. She was not able to see the payable manager at [facility]. We will address whether this is necessary when covid 19 pandemic has subsided. Mild persistent asthma 09/19/2013 Overview (05/26/2024): 10/31/2023 (age 17 y.o.): Albuterol PRN only - ACT score shows well controlled asthma (20-25) - AAP plan done and reviewed - School medication note provided - Albuterol 2 puffs every 4 hours - Medications Albuterol inhaler refilled - sees payable manager - Last Specialist Visit: 05/22/2024 [facility]. Allergic reaction, asthma with exacerbation, allergic rhintis. Already as allergy to sesame seed, pecan, pistachio. Cahsew, walnut. Immunocap for tree nut a sesame. Start advair, continue dupixent and TAC, recommned allergy shots. Follow up 3 months asthma recheck History: 10/31/2019 (age 13 yr 11 mo): On Airduo an singulair. Was followed by Allergy as [facility]. Would like to see local payable manager for asthma allergy care. Referred today. 05/18/2020 (age 14yr 5mo): Appointment with SKYLAR coming up on 05/21/2020. Continue current meds for now. 07/14/2020: Saw payable manager SKYLAR recently. Mom reported that they sent albuterol, continuted flovent, airduo. [employer] notes report that La is on QVAR 80 to P BID with good effect. Immunotherapy recommended and return for oral challenge to amoxicilin recommended. 08/08/2021 (age 15yr 8mo): Per mom started allergy shots, following with payable manager. Still taking QVAR Rx'd by payable manager. Assessment & Plan (11/01/2023 1:30 PM EDT): 10/31/2023 (age 17 y.o.): Albuterol PRN only - ACT score shows well controlled asthma (20-25) - AAP plan done and reviewed - School medication note provided - Albuterol 2 puffs every 4 hours - Medications Albuterol inhaler refilled - sees payable manager Assessment & Plan (08/09/2022 11:48 AM EDT): 08/09/2022 (age 16yr): Has appt at [facility] to discuss allergy shots today. Not taking QVAR Rx'd by payable manager, will discuss this today. Assessment & Plan (08/08/2021 12:13 PM EDT): 08/08/2021 (age 15yr 8mo): Per mom started allergy shots, following with payable manager. Still taking QVAR Rx'd by payable manager. Assessment & Plan (07/19/2020 4:30 PM EDT): 07/19/2020 (age 14yr 7mo): saw payable manager recently. Sent albuterol, continuted flovent, airduo. Assessment & Plan (07/05/2020 5:04 PM EDT): 07/05/2020 (age 14yr 7mo): refill albuterol today. Assessment & Plan (05/18/2020 12:40 PM EDT): 05/18/2020 (age 14yr 5mo): Appointment with SKYLAR coming up on 05/21/2020. Continue current meds for now. Assessment & Plan (03/08/2020 8:07 PM EST): 03/08/2020 (age 14 yr 3 mo): Here for asthma f/u. Had mild flair due to running out of asthma meds. Would like to see local payable manager for asthma allergy care. Has airduo refilled by our office at [facility] last visit on 02/09/2020. She is taking it every day and is feeling better. ACT shows moderate control (20), Assessment & Plan (02/09/2020 4:30 PM EST): Mild flare today Advised to use albuterol q4h prn- did not use at all today so far Refilled 1 AirDuo inhaler pending FU w/ PCP Did not go for FU w/ [facility] payable manager Mom wants to see payable manager locally- will return for asthma check and discuss allergy care w/ PCP Assessment & Plan (10/31/2019 5:00 PM EDT): 10/31/2019 (age 13 yr 11 mo): wheezing a little bit lately. Using air duo and singular. Due for follow up with providers at [facility]. History: 10/28/18 - Taking AirDuo and singulair as preventatives and is taking them consistently. Doing well. She is followed by Allergy at [facility]. Has generally required oral steroid about 1-2 times per year. 04/11/2019 poor control and confusion about meds. Discussed and will continue with air duo, singulair. Follow up in 6 weeks. Needs to reschedule allergy visit at [facility]. 05/23/2019 Doing great, using air duo intermittently. ACT 25. Encourage daily air duo use, follow up 3 months. Assessment & Plan (05/23/2019 1:52 PM EDT): 05/23/2019 . She has been doing great. Act Scort up to 25 from 14. She is using airduo - I get variable reports during the visit about how often. 2 puffs daily to 2 puffs twice per week. She does find air duo to be easy to use. She has been surprised at how well she's doing. She is also taking singulair dialy. She is using proair pump maybe twice per week. La will plan to get eval for allergy shots when covid 19 pandemic has subsided. I encouraged her to use her air duo when she takes her Singulair at night, which she says she never forgets to use. I will send in proair since that last albuterol inhaler I sent was not covered (respiclick) Follow up 3 months. Assessment & Plan (04/11/2019 4:36 PM EST): Poorly controlled. ACT 14. She recently had an asthma home check which demonstrated that she is not using her controllers- or allergy meds. The ACT score indicated La's asthma to be not well controlled. It appeared that the guardian did understand their child's level of control. - Patient has not used controller medication. - had a hard time finding it - not easy to use. Last used controller in February. - it was easier to use last pump she had prior (adviar diskus?) - using nebulizer several times a day and at times will use albuterol pump. - does not take allergy meds as prescribed by pcp. We discussed the use of the air duo and why she didn't like it. She was frustrated that it didn't fit in to her chamber. We discussed resplick technology and the breath actuated dispensation of medication. She agree that seemed easier in general and will start using the air-duo every day. She reports that she has been taking singulair. Will see if proair respiclick is covered to keep her med delivery consistent. It sounds like she currently uses ventolin. Follow up 6 weeks with ACT. Needs to reschedule allergy visit at [facility]. Assessment & Plan (04/04/2019 4:12 PM EST): Exacerbation requring steroids today. Use albuterol every 4 hours. Follow up 1 week. Developmental academic disorder 08/21/2013 Overview (08/09/2022): 08/09/2022 (age 16yr): Passed the year, has IEP. ADHD being treated by [facility] psych. Detailed History and Chronology of care: 10/31/2019 (age 13 yr 11 mo): reports online school during the covid 19 pandemic is going well. 06/30/2020: had meeting to review of IEP 07/19/2020 (age 14yr 7mo): Per mom La failed the year. Has IEP. Mom would like to see her stay back. She had a very hard time with remote learning. Assessment & Plan (08/09/2022 11:53 AM EDT): 08/09/2022 (age 16yr): Passed the year, has IEP. ADHD being treated by [facility] psych. Assessment & Plan (08/08/2021 12:34 PM EDT): 08/08/2021 (age 15yr 8mo): Passed the year, variable grades. Has IEP. ADHD now being treated by [facility] psych. Assessment & Plan (07/19/2020 5:22 PM EDT): 07/19/2020 (age 14yr 7mo): failed year. Has IEP. Mom would like to see her stay back. She had a very hard time with remote learning. Conduct disorder 07/30/2013 Atopic dermatitis 07/26/2012 Overview (05/26/2024): 10/31/2023 (age 17 y.o.): On dupixent through derm - Last Specialist Visit: 05/22/2024 [facility]. Allergic reaction, asthma with exacerbation, allergic rhintis. Already as allergy to sesame seed, pecan, pistachio. Cahsew, walnut. Immunocap for tree nut a sesame. Start advair, continue dupixent and TAC, recommned allergy shots. Follow up 3 months asthma recheck Detailed History and Chronology of care: 03/08/2020 (age 14 yr 3 mo): Due for follow up with providers at [facility]. Would like to see local airframe and power plant mechanic and payable manager, referred today. Using fluff inconsistently. 05/18/2020 (age 14yr 5mo): Appointment with SKYLAR coming up on 05/21/2020. 07/14/2020 [employer] [employer] visit reports that La is on cerave cream and triamcinolone cream. No follow up notes since that time. Assessment & Plan (10/31/2023 2:05 PM EDT): 10/31/2023 (age 17 y.o.): On dupixent through derm Assessment & Plan (08/09/2022 11:11 AM EDT): 08/09/2022 (age 16yr): Would like to try dupixent. Refer to derm, can not longer see [facility] derm. Assessment & Plan (08/08/2021 12:15 PM EDT): 08/08/2021 (age 15yr 8mo): Not seeing dermatology. Mom is thinking of seeing an payable manager in [place]. Assessment & Plan (07/19/2020 5:22 PM EDT): 07/19/2020 (age 14yr 7mo): Plans to follow up with Derm at [facility]. Assessment & Plan (03/08/2020 7:59 PM EST): 03/08/2020 (age 14 yr 3 mo): Here for asthma f/u. Had mild flair due to running out of asthma meds. Would like to see local payable manager for asthma allergy care. May need local airframe and power plant mechanic to help with eczema. Using baby fluff wth triamcinolone 0.1% inconsistently. It seems to help when she uses it. Referred to Derm today. Class 2 obesity due to exces s calories without serious comorbidity in adult 03/07/2010 Overview (05/16/2024): 11/01/2023 (age 17 y.o.): Followed by [facility] weight management 03/2023 - 05/202408/20/2022 (age 16yr): Cannot be seen by endo at [facility] at all. Refer to [facility] - Last Specialist Visit: 04/10/2023 - 05/16/24 [facility] weight [facility], followed closely Lifestyle changes recommended. 10/16/2023 [facility] weight management. Started Phentermine 05/16/24 stopped phentermine, Has completed weight man program. Detailed History and Chronology of care: 08/08/2021 (age 15yr 8mo): Has end appt coming up 10/2021. Labs normal 08/2019. 10/28/2021: visit with endo weight management. La still resistant to trying to lose weight. Discussed diet,check labs, f/u endo 6 months (04/2022) 12/28/2021: Visit with weight management. Continue to follow. Has elevated cholesterol according to note. 02/28/2022 [facility] weight management clinic on Trulicity with excellent effect follow-up 3 months Assessment & Plan (11/01/2023 1:32 PM EDT): 11/01/2023 (age 17 y.o.): Followed by [facility] weight [facility] Assessment & Plan (05/18/2023 4:44 PM EDT): 05/18/2023 (age 17yr): Is being treated at [facility] weight management and was referred to PT at [facility]. They do not see pts over age 18. List of local PT providers given. Assessment & Plan (08/09/2022 11:17 AM EDT): 08/09/2022 (age 16yr): No long able to see endo at [facility]. Refer to [facility] adult endo (electronic) - Last Specialist Visit: 02/28/2022 [facility] weight management clinic on Trulicity with excellent effect follow-up 3 months Assessment & Plan (08/08/2021 12:35 PM EDT): 08/08/2021 (age 15yr 8mo): Has end appt coming up 10/2021. Labs normal 08/2019. Assessment & Plan (07/05/2020 5:04 PM EDT): 07/05/2020 (age 14yr 7mo): mom is concerned about weight gain, would like to discuss lab testing at next visit. Assessment & Plan (09/11/2019 4:34 PM EDT): 09/11/2019 (age 13 yr 9 mo): with recent weight gain during the covid 19 pandemic. BMI up from 113 %ile to 129%ile. Long discussion about daily habits - she is currently sedentary, playing lots of video games. Eating poorly - lots of candy. We hd a long discussion about the benefits of daily exercise (which is not limited to weight loss) and healthy eating. She decided to start doing more dancing (just dance) and try to eliminate candy (she already has many cavities). Will will recheck at her well visit in October. She seems amenable to change, will likely benefit from regular follow up for weight. Resolved Problems Problem Noted Date Diagnosed Date Resolved Date Behavior concern 10/04/2022 11/01/2023 Overview (11/01/2023): 10/04/2022 (age 16yr): Mom brings La (age 16) in today for concern regarding promiscuous sexual activity. Mom took La's phone and had Crystal's sister look at it. The report was that La was texting nude photos and requesting sex with random strangers. Crystal denies this and states she engaged in sexual activity with one person she knows, and was texting with one other person she also knows. Mom states La lies. - Clearly there is a lack of trust and communication between La and mother - Complete STI testing at mom's request with La's conset - report STI testing resutls to Sidney' mother at La's request/consent (she has no phone) - Encourage safer sex, condoms, responsible behavior - Will speak with therapist as family therapy is clearly needed. Assessment & Plan (10/04/2022 1:20 PM EDT): 10/04/2022 (age 16yr): Mom brings La (age 16) in today for concern regarding promiscuous sexual activity. Mom took La's phone and had Crystal's sister look at it. The report was that La was texting nude photos and requesting sex with random strangers. Crystal denies this and states she engaged in sexual activity with one person she knows, and was texting with one other person she also knows. Mom states La lies. - Clearly there is a lack of trust and communication between La and mother - Complete STI testing at mom's request with La's conset - report STI testing resutls to Sidney' mother at La's request/consent (she has no phone) - Encourage safer sex, condoms, responsible behavior - Will speak with therapist as family therapy is clearly needed. Counseling and coordination of care 10/28/2018 03/09/2022 Encounters Date Type Department Care Team Description 10/17/2024 Telephone [facility] - [address] [address] Ju Arambula MD Medical Records from Last 3 Months Immunizations Immunization Administration Dates Next Due DTaP / Hep B / IPV 06/09/2004,03/17/2004, 004 DTaP 5 12/04/2007,05/30/2005 H1N1 03/18/2009,01/26/2009 HPV Vaccine 9 Valent 05/21/2015,01/06/2015,09/03 Hep A, ped/adol 09/03/2014,08/21/2013 Hep B, ped/adol 2003 Hib (HbOC) 06/09/2004,03/17/2004,01/27/2004 Hib (PRP-T) 02/28/2005 IPV 12/04/2007 Influenza Split 12/16/2012,11/23/2011,11/29/2009 Influenza, injectable, quadrivalent 11/04/2015,1 Influenza, injectable, quadr ivalent, preservative free 10/31/2019,10/10/2018,10/24/2017,10/15 Influenza, injectable, trivalent 009,12/04/2007,10/30/2006,11/27,02/28/2005 MMR 12/04/2007,11/28/2004 Meningococcal Conj (Menactra) MCV4P 07/19/2020,0 09/06/2015 Pneumococcal Conjugate 02/28/2005,2004,03/17/2004,01/26 Pneumococcal Polysaccharide 10/24/2017 Tdap 09/06/2015 Varicella 12/04/2007,11/28/2004 Family History Relation Name Status Comments Father Alive Bio Father: Ast hma Mother Shira Alive Bio Mother: Hep atitis C Other Family history of Obesity, Family history of Asthma Social History Tobacco Use Types Packs/Day Years Used Date Smoking Tobacco: Never Smokeless Tobacco: Never Hunger/Food Answer Date Recorded In the last 12 months, did y ou or your family ever eat less than you felt you should because there wasn't enough money for food? No 10/31/2023 Stable Housing Answer Date Recorded Are you worried that in the next 2 months you may not have stable housing? No 10/31/2023 Transportation Concerns Answer Date Rec orded In the last 12 months, have you or your family ever had to go without healthcare because you didn't have a way to get there? No 10/31/2023 Hazards in Home Answer Date Recorded Think about the place you li ve. Do you have problems with any of the following? Pests (mice or roaches), mold, no/not working smoke detectors, water leaks, no window guards. No 2023 Financing Utilities Answer Date Recorde d In the last 12 months, has t he electric, gas, oil, or water company threatened to shut off your services in your home? No 10/31/2023 Safety at Home Answer Date Recorded Are you or your family worried about feeling saf e in your home? No 10/31/2023 Outside Support Answer Date Recorded Do you feel that you need mo re support from other people or programs to help you care for yourself or your family? No 10/31/2023 Understanding Health Concerns Answer Da te Recorded Do you need help understandi ng your or your child's healthcare needs (diagnosis, medications, plan, etc.)? No 10/31/2023 Financing Health Concerns Answer Date R ecorded In the last 12 months, was t here a time when your child needed to see a doctor or get medications or supplies but could not because of cost? No 10/31/2023 Missing School or Work Answer Date Vasiliy rded Did you or your child miss s chool or work because of a health problem that could have been avoided? No 10/31/2023 Child Education Answer Date Recorded Do you have concerns about y our/your child's learning or behavior in school, preschool, or daycare? No 10/31/2023 Comments No Sex and Gender Information Value Date Recorded Sex Assigned at Female 10/28/2018 6:06 PM EDT Legal Sex Female 5:01 PM EDT Gender Identity Female 10/28/2018 6:06 PM EDT Sexual Orientation Straight 08/08/2021 9: 52 AM EDT Last Filed Vital Signs Vital Sign Reading Time Taken Comments Blood Pressure 115/73 10/31/2023 1:32 PM EDT Pulse 84 10/31/2023 1:32 PM EDT Temperature 36.7 C (98.1 F) 01/25/2024 2:39 PM EST Respiratory Rate 20 12/23/2019 1:47 PM EST Oxygen Saturation 98% 02/09/2020 3:11 PM EST Inhaled Oxygen Concentration - - Weight 105 kg (231 lb 9.6 oz) 01/25/2024 2:39 PM EST Height 153.3 cm (5' 0.35 ) 10/31/2023 1:32 PM ED T Body Mass Index 44.7 10/31/2023 1:32 PM EDT Plan of Treatment Health Maintenance Due Date Last Done Comments Men B Vaccine (1 of 2 - Standard) 2019 Influenza Vaccines (#1) 2024 10/31/19 20, 10/10/2018, 10/24/2017, Additional history exists COVID-19 Vaccine ( - 2024-2 6 season) 2024 DTaP,Tdap,and Td Vaccines (7 - Td or Tdap) 09/05/2025 09/06/2015, 12/04/2007, 05/30/2005, Additional history exists Hepatitis B Vaccines Completed 06/09/2004, 03/17/2004, 01/27/2004, Additional history exists HIB Vaccines Completed 02/28/2005, 05/14, 03/17/2004, Additional history exists IPV Vaccines Completed 12/04/2007, 05/14, 03/17/2004, Additional history exists MMR Vaccines Completed 12/04/2007, 11/28/2004 Varicella Vaccines Completed 12/04/2007, 11/28/2004 Hepatitis A Vaccines Completed 09/03/2014, 08/22/19 14 HPV Vaccines Completed 05/21/2015, 12/14, 09/03/2014 Pneumococcal Vaccine Completed 10/24/2017, 02/28/2005, 06/09/2004, Additional history exists Meningococcal Vaccine Completed 07/19/2020, 016 Procedures * Due to [place] [employer] law, this organization might not be sharing sensitive test results. Procedure Name Priority Date/Time Associated Diagnosis Comments CHLAMYDIA AND GONORRHEA, AMPLIFIED Routine 10/31/2023 3:25 PM EDT Encounter for screening examination for sexually transmitted disease from Last 3 Months or Most Recently Relevant to Health Maintenance Results * Due to [facility] law, this organization might not be sharing sensitive test results. * Chlamydia and Gonorrhoea, Amplified (Urine) (10/31/2023 3:25 PM EDT) C trach MITALI Negative Negative [facility] N gonorrhoeae MITALI Negative Negative [facility] Urine (Urine, Random (not clean void)) 10/31/2023 3:25 PM EDT 10/31/2023 Comment:UR Narrative [facility] - 11/01/2023 3:07 PM EDT Performed at: 01 - [facility] [address], [address], [place], [place] [id number] Editorial Cartoonist: Hal Fernandez MD, Phone: [phone] us Ju Arambula MD LAB MICROBIOLOGY - GENERAL OR DERABLES Final Result [facility] [address] [place] [address] from Last 3 Months or Most Recently Relevant to Health Maintenance
--- OUTSIDE RECORDS SUMMARY | 2024-12-03 08:27 | XMS_ITS | Encounter Summary ---
Author Organization [facility] Address [address] [place], [place] [address] Phone Care Team Providers Care Electronics Engineering Technician Name Role Phone Miguel Shore MD Primary Care Provider [phone] Encounter Details Date Type Department Care Team (Late st Contact Info) Description 08/25/2013 Documentation [facility] [place] [address] [place] [address] Family Medicine, Physician [address] [place], [place] [address] Social History Tobacco Use Types Packs/Day Years [...] on filedocumented in this encounter Care Teams Electronics Engineering Technician Relationship Specialty Start Date End Date Miguel Shore MD [address] [place] [address] [place] [address] PCP - General 09/22/16 01/11/19 documented as of this encounter
--- OUTSIDE RECORDS SUMMARY | 2024-12-03 08:27 | XMS_ITS | Encounter Summary ---
Author Organization [facility] Address [address] [place], [place] [address] Phone Care Team Providers Care Lockstitch Sleeve Maker Name Role Phone Miguel Shore MD Primary Care Provider [phone] Encounter Details Date Type Department Care Team (Late st Contact Info) Description 12/14/2011 Documentation [facility] [place] [address] [place] [address] Family Medicine, Physician [address] [place], [place] [address] Social History Tobacco Use Types Packs/Day Years [...] on filedocumented in this encounter Care Teams Lockstitch Sleeve Maker Relationship Specialty Start Date End Date Miguel Shore MD [address] [place] [address] [place] [address] PCP - General 09/22/16 01/11/19 documented as of this encounter
--- OUTSIDE RECORDS SUMMARY | 2024-12-03 08:27 | XMS_ITS | Clinical Summary ---
Author Organization [facility] Address [address] [place] [address] Phone Care Team Providers Care Global Cto Name Role Phone Ju Arambula MD Unavailable [phone] Miguel Shore MD Primary Care Provider [phone] Miguel Shore MD Unavailable [phone] Medications * This document contains information received from the source organization and may not represent a complete record from that organization. buPROPion XL (Wellbutrin XL) 300 mg 24 hr tablet Dose: 300 mg, Dose Amount: 1 tab, PO, Q24hr, Dispense Quantity: 30 tab, Refills: 1, Entered: 09/11/22 12:25:00 EDT, [facility]/pharmacy #[id number] 3 Active cetirizine (ZyrTEC) 10 mg tablet Dose: 10 mg, Dose Amount: 1 tab, PO, daily, Dispense Quantity: 90 tab, Refills: 3, Entered: 06/28/18 11:35:41 EDT, [email or web address] [address] 9 Active clindamycin (Cleocin-T) 1 % lotion Dose Amount: 1 appl, TOP, BID, Special Instructions: apply to affected bumps in armpits and groin and to legs after shaving, Dispense Quantity: 60 mL, Refills: 6, Entered: 01/31/18 13:06:44 [facility] [address]228 8 Active dulaglutide (Trulicity) 0.75 mg/0.5 mL [...] EA, Refills: 3, Entered: 11/06/18 9:27:00 EDT, [facility][id number] 9 Active ketoconazole (NIZOral) 2 % shampoo Dose Amount: 1 appl, TOP, As Directed, Special Instructions: lather onto scalp, leave on for 5 min and rinse off 2x/week, Dispense Quantity: 120 mL, Refills: 6, Entered: 01/31/18 13:13:26 EST, [email or web address] 53764 8 Active ketotifen (Zaditor) 0.025 % (0.035 %) ophthalmic solution Dose Amount: 1 drop, Eye Both, BID, Dispense Quantity: 7 mL, Refills: 3, Entered: 06/28/18 11:39:44 EDT, [email or web address] 21820 9 Active lisdexamfetamin e (Vyvanse) 40 mg capsule Dose: 40 mg, Dose Amount: 1 cap, PO, DailyMorning, Dispense Quantity: 60 cap, Refills: 0, Entered: 08/28/22 16:19:00 EDT, [facility]/pharmacy #[id number] 3 Active montelukast (Singulair) 10 mg tablet Dose: 10 mg, Dose Amount: 1 tab, PO, daily, Dispense Quantity: 90 tab, Refills: 3, Entered: 06/28/18 11:38:58 EDT, [facility] 47040 9 Active Social History Tobacco Use Types [...] of Treatment Not on file Care Teams Global Cto Relationship Specialty Start Date End Date Ralf, Ju Cueto MD [address] [place], [place] [id number] PCP - Insurance PCP 08/18/22 Miguel Shore MD [address] [place] [address] PCP - General 12/22/08 Miguel Shore MD [address] [place] [address] PCP - Clinical PCP 06/15/10
--- OUTSIDE RECORDS SUMMARY | 2024-12-03 08:27 | XMS_ITS | Clinical Summary ---
Author Organization [facility] Address [address] [place] [address] Care Team Providers Care Jig Worker Name Role Phone Ju Arambula MD Primary Care Provider [phone] Source Comments Please note that some or all of the patient's information could have additional privacy protections. State laws allow health care providers to render certain types of treatment to minors without parental consent. Please do not assume that this information can be shared solely by obtaining just the consent of the patient's parent/guardian. Please determine if all or part of the patient's care was rendered without parent/guardian involvement. And, if so, obtain the minor's consent prior to disclosure.[facility] Allergies Active Allergy Reactions Criticality Noted Date Comments Tree Nuts 12/23/2019 Medications hydrOXYzine (ATARAX) 25 MG tablet TAKE 1 TABLET BY MOUTH 3 TIMES A DAY,X30 DAYS NEEDED FOR ITCHING 03/20/2023 Active cetirizine (ZYRTEC) 10 MG tablet Take 10 mg by mouth daily 11/30/2022 Active DUPIXENT PEN 300 mg/2 mL injection 09/18/2022 Active Family History Medical History Relation Name Comments Obesity Maternal Aunt Diabetes Maternal Grandmother Obesity Mother Weight loss surgery Paternal Aunt 1 Kidney disease Paternal Aunt 2 Obesity Sister NAFLD Neg Hx Thyroid cancer Neg Hx Thyroid disease Neg Hx Relation Name Status Comments Maternal Aunt Maternal Grandmother Mother Paternal Aunt 1 Paternal Aunt 2 Alive Sister Social History Tobacco Use Types Packs/Day Years Used Date Smoking Tobacco: Never Passive Smoke Exposure: Never Tobacco Cessation:Counseling Given: Not Answered Comments No Sex and Gender Information Value Date Recorded Sex Assigned at Not on file Legal Sex Female 2:09 PM EDT Gender Identity Not on file Sexual Orientation Not on file Last Filed Vital Signs Vital Sign Reading Time Taken Comments Blood Pressure 110/62 05/16/2024 11:47 AM EDT kyra jayy 12 Pulse 69 11/01/2023 11:01 AM EDT Temperature - - Respiratory Rate - - Oxygen Saturation - - Inhaled Oxygen Concentration - - Weight 103 kg (227 lb 1.2 oz) 05/16/2024 11:47 A M EDT Height 155.4 cm (5' 1.18 ) 05/16/2024 11:47 AM E DT Body Mass Index 42.65 05/16/2024 11:47 AM EDT Plan of Treatment Health Maintenance Due Date Last Done Comments DTaP/TDAP/TD VACCINES (1 - Tdap) 11/25/2010 ADOLESCENT HIV SCREENING 11/25/2016 COVID-19 Vaccine ( - 2023-2 5 season) 2024 INFLUENZA (#1) 2024 NIRSEVIMAB VACCINES UNDER 8 MONTHS Aged Out No longer eligible based on patient's age to complete this topic Insurance [place] [facility] MEDICAID PART A AND B Care Teams Jig Worker Relationship Specialty Start Date End Date Ju Arambula MD [address] [place] [address] KYRA ROBBINS [address] PCP - General General Pediatrics 09/13/22
--- OUTSIDE RECORDS SUMMARY | 2024-12-03 08:27 | XMS_ITS | Encounter Summary ---
Author Organization [facility] Address [address] [place], [place] [address] Phone Care Team Providers Care Nanotechnology Technician Name Role Phone Miguel Shore MD Primary Care Provider [phone] Encounter Details Date Type Department Care Team (Late st Contact Info) Description 03/28/2013 Documentation [facility] Family Medicine [address] [place] [address] Family Medicine, Physician [address] [place], [place] [address] Social History Tobacco Use Types Packs/Day Years [...] on filedocumented in this encounter Care Teams Nanotechnology Technician Relationship Specialty Start Date End Date Miguel Shore MD [address] [place] [address] [place] [address] PCP - General 09/22/16 01/11/19 documented as of this encounter
--- OUTSIDE RECORDS SUMMARY | 2024-12-03 08:27 | XMS_ITS | Encounter Summary ---
Author Organization [facility] Address [address] [place], [place] [address] Phone Care Team Providers Care Dispensing Optician Apprentice Name Role Phone Miguel Shore MD Primary Care Provider [phone] Encounter Details Date Type Department Care Team (Late st Contact Info) Description 11/22/2012 Documentation [facility] [place] Family Medicine [address] [place] [address] Family Medicine, Physician [address] [place], [place] [address] Social History Tobacco Use Types Packs/Day Years [...] on filedocumented in this encounter Care Teams Dispensing Optician Apprentice Relationship Specialty Start Date End Date Miguel Shore MD [address] [place] [address] [place] [address] PCP - General 09/22/16 01/11/19 documented as of this encounter
--- OUTSIDE RECORDS SUMMARY | 2024-12-03 08:27 | XMS_ITS | Encounter Summary ---
Author Organization [facility] Address [address] [place], [place] [address] Phone Care Team Providers Care Health Care Liaison Name Role Phone Miguel Shore MD Primary Care Provider [phone] Encounter Details Date Type Department Care Team (Late st Contact Info) Description 10/27/2013 Documentation [facility] [place] [address] [place] [address] Family Medicine, Physician [address] [place], [place] [address] Social History Tobacco Use Types Packs/Day Years [...] on filedocumented in this encounter Care Teams Health Care Liaison Relationship Specialty Start Date End Date Miguel Shore MD [address] [place] [address] [place] [address] PCP - General 09/22/16 01/11/19 documented as of this encounter
--- OUTSIDE RECORDS SUMMARY | 2024-12-03 08:27 | XMS_ITS | Encounter Summary ---
Author Organization [facility] Address [address] [place] [address] Phone Care Team Providers Care Manufacturer'S Service Representative Name Role Phone Unavailable Primary Care Provider Unavailabl e Reason for Visit * Reason Comments Med Refill Encounter Details Date Type Department Care Team (Late st Contact Info) Description 07/04/2020 Refill [facility] [place] [address] [place] [address] Andressa Bains, [address] [place], [place] [address] Moderate persistent asthma with acute exacerbation Social History Tobacco Use Types Packs/Day Years Used Date Smoking Tobacco: Never Smokeless Tobacco: Never Hunger/Food Answer Date Recorded In the last 12 months, did y ou or your family ever eat less than you felt you should because there wasn't enough money for food? No 10/31/2019 Stable Housing Answer Date Recorded Are you worried that in the next 2 months you may not have stable housing? No 10/31/2019 Transportation Concerns Answer Date Rec orded In the last 12 months, have you or your family ever had to go without healthcare because you didn't have a way to get there? No 10/31/2019 Hazards in Home Answer Date Recorded Think about the place you li ve. Do you have problems with any of the following? Pests (mice or roaches), mold, no/not working smoke detectors, water leaks, no window guards. Yes 2019 Financing Utilities Answer Date Recorde d In the last 12 months, has t he electric, gas, oil, or water company threatened to shut off your services in your home? No 10/31/2019 Safety at Home Answer Date Recorded Are you or your family worried about feeling saf e in your home? No 10/31/2019 Outside Support Answer Date Recorded Do you feel that you need mo re support from other people or programs to help you care for yourself or your family? No 10/31/2019 Understanding Health Concerns Answer Da te Recorded Do you need help understandi ng your or your child's healthcare needs (diagnosis, medications, plan, etc.)? No 10/31/2019 Financing Health Concerns Answer Date R ecorded In the last 12 months, was t here a time when your child needed to see a doctor or get medications or supplies but could not because of cost? No 10/31/2019 Missing School or Work Answer Date Vasiliy rded Did you or your child miss s chool or work because of a health problem that could have been avoided? No 10/31/2019 Comments No Sex and Gender Information Value Date Recorded Sex Assigned at Female 10/28/2018 6:06 PM EDT Legal Sex Female 5:01 PM EDT Gender Identity Female 10/28/2018 6:06 PM EDT Sexual Orientation Straight 08/08/2021 9: 52 AM EDT documented as of this encounter Miscellaneous Notes * Telephone Encounter - Anahi Wilcox LPN - 07/05/2020 9:22 AM EDT Faxed refill request / refused - message left on unidentified a/m to call [facility] refill 07/03/20 documented in this encounter Plan of Treatment Not on file documented as of this encounter Visit Diagnoses Diagnosis Moderate persistent asthma with acute exacerbation documented in this encounter
== END 2024-12-03 14:31 | disposition home or self-care (01) ==
LOC: HO.HBS 08:18
PROVIDERS: PCP Nurse Practitioner Family; Visit Provider Surgery
DX: E66.01 Morbid (severe) obesity due to excess calories (principal); Z68.41 Body mass index [BMI] 40.0-44.9, adult
CPT/HCPCS: 99205

== ENCOUNTER 2024-12-22 13:18 | Outpatient (REF) | payer MEDICARE, MEDICAID, SELFPAY ==
--- NOTE | ~2024-12-22 | XR_ITS ---
EXAMINATION: XR CHEST CLINICAL INFORMATION: E66.01 - Morbid (severe) obesity due to excess calories COMPARISON: None available. TECHNIQUE: PA and lateral views FINDINGS: No consolidation, pleural fissure pneumothorax. No hyperinflation. Cardiomediastinal silhouette size is normal. Mild multilevel spondylosis. XR/XR chest 2V IMPRESSION: No acute airspace disease. Electronically signed by: Ulises Howard MD 12/22/2024 02:10 PM [facility]
[2024-12-22 13:48] LABS: MANUAL DIFF FLAG NO
[2024-12-22 13:59] LABS: Hematocrit 41.8 % (37.0-47.0); Hemoglobin 13.4 g/dl (12.0-16.0); Imm Gran Abs Auto 0.06 X10*3/uL (0.00-0.03); Imm Gran Pct Auto 0.6 % (0.0-0.4); Lymphocytes Absolute Auto 3.3 X10*3/uL (1.2-4.9); Mean Corpuscular HGB Conc 32.1 g/dl (31.0-35.0); Mean Corpuscular Hemoglobin 26.9 pg (27.0-33.0); Mean Corpuscular Volume 83.8 fL (80.0-98.0); NRBC Abs Auto 0.000 X10*3/uL (0.0-0.012); NRBC Pct Auto 0.0 /100WBC (0.0-0.2); Platelet Count 299 X10*3/uL (160-400); Red Blood Count 4.99 X10*6/uL (4.20-5.50); White Blood Count 10.7 X10*3/uL (4.8-10.8)
--- OUTSIDE RECORDS SUMMARY | 2024-12-22 15:25 | XMS_ITS | Encounter Summary ---
Author Organization [facility] Address [address] [place], [place] [address] Phone Care Team Providers Care Lunchroom Attendant Name Role Phone Miguel Shore MD Primary Care Provider [phone] Encounter Details Date Type Department Care Team (Late st Contact Info) Description 09/21/2015 Documentation [facility] [place] [address] [place] [address] Family Medicine, Physician [address] [place], [place] [address] Social History Tobacco Use Types Packs/Day Years [...] on filedocumented in this encounter Care Teams Lunchroom Attendant Relationship Specialty Start Date End Date Miguel Shore MD [address] [place] [address] [place] [address] PCP - General 09/22/16 01/11/19 documented as of this encounter
--- OUTSIDE RECORDS SUMMARY | 2024-12-22 15:25 | XMS_ITS | Continuity of Care Document ---
Author Organization [place] [facility], [facility] Address [address] [place] [address] Care Team Providers Care Digital Proofing And Platemaker Name Role Phone RAS CARRANZA Primary Care Provider Assessment No assessment recorded. Plan of Treatment Reminders Order Date Submit Date Provider Last Modified By Organization Details Last Modified Time Details Appointments PROCEDURE 15 2024 10:50A M JAROD CORRAL MD Not available Not available Not available Lab None recorded. Referral None recorded. Procedures None recorded. Surgeries None recorded. Imaging None recorded. Medication Orders None recorded. Patient TargetsNo targets recorded. Patient InstructionsNo instructions recorded. Reason for Referral None Reported. Results Created Date Observation Date Name Description Value Unit Range Abnormal Flag Note LastModifiedBy Organization Detail LastModifiedTime 10/16/19 25 audio gram No observ ation record ed. BARCODE Not Available 2024 10:00:45 11/22/19 25 audio gram No observ ation record ed. BARCODE Not Available 2024 08:56:00 Result Notes None recorded. Problems Name Problem SNOMED Code Status Onset Date Resolution Date Notes Provider Name and Address Organization Details Recorded Time Otalgia of right ear 6488553488 Active 2020 Otalgia, right ear; Note: Date Diagnosed : 09/02/2020 1:11 PM (H92.01) Not Available [facility] 4 03:16:14 Bilateral disorder of Eustachia n tubes 02176259394 09907 Active 2020 Other specified disorders of Eustachia n tube, bilateral ; Note: Date Diagnosed : 01/12/2021 4:35 PM (H69.83) Not Available [facility] 4 03:16:14 Hypertrop hy of nasal turbinate s 19846883 Active 2022 Hypertrop hy of nasal turbinate s; Note: Date Diagnosed : 3 4:12 PM (J34.3) Not Available [facility] 4 03:16:14 Allergic rhinitis 01953637 Active 2022 Other allergic rhinitis; Note: Date Diagnosed : 3 4:12 PM (J30.89) Not Available [facility] 4 03:16:14 Conductiv e hearing loss 51059102 Active 2022 Conductiv e hearing loss, unilatera l, right ear, with unrestric olivia hearing on the contralat eral side; Note: Date Diagnosed : 3 5:07 PM (H90.11) Not Available [facility] 4 03:16:15 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, right ear; Note: Date Diagnosed : 3 5:07 PM (H73.811) Not Available [facility] 4 03:16:14 Patulous right Eustachia n tube 54849204365 26146 Active 2022 Patulous Eustachia n tube, right ear; Note: Date Diagnosed : 3 5:03 PM (H69.01) Not Available [facility] 4 03:16:15 Nasal vestibuli tis 28049216 Active 2024 JAROD CORRAL MD [address] [place] [address], [place], [address] , [facility] 5 15:22:06 Problem Notes None recorded. Procedures Surgical History Date Name Laterality Status Provider Name and Address Organization Details Recorded Time 10/30/2024 Air & Speech Audio with Tymps - 94531, 18601 & 42049 completed ANT PATTERSON [place], CCC-A [address] [facility],[place] [address], [place], [address], [place] - [facility] 10/30/2024 09:57:13 10/14/2024 Air & Speech Audio with Tymps - 75278, 06578 & 87263 completed ANT PATTERSON [place], [facility] [address] [place] [address],[place] [address], [place], [address], [place] - [facility] 10/14/2024 14:47:03 Imaging Results None recorded. Procedure Notes None recorded. Medical Equipment None Reported. Allergies Allergen ID Allergen Name Allergen Category Reaction Reaction Severity Criticality Documentation Date Start Date Code Code System Note Provider Name and Address Organization Details Recorded Time 703193 chocolate flavor food,medi cation other Not available Not available 06/26/2023 React ion: other react ion, Unkno wn; Not Available [facility] 4 01:15:54 326904 cat dander environme nt other Not available Not available 06/26/2023 React ion: other react ion, Unkno wn; Not Available [facility] 4 01:15:55 966683 nut - unspecifi ed food other Not available Not available 06/26/2023 React ion: other react ion, Unkno wn; Not Available [facility] 4 01:15:56 Medications Name Sig Start Date [...] xtended release 12/06 completed Medicati on ID: [id number] B rand Name: Adderall XR Send Method: [...] as directed 10/14 completed Medicati on ID: [id number] D uration Value: 30 Brand Name: azelasti ne Send Method: E-Prescr ibed Sub s [...] a day 10/14 completed Medicati on ID: [id number] D uration Value: 30 Brand Name: fluticas [...] extended release 10/14 completed Medicati on ID: [id number] B rand Name: bupropio n HCl Send Method: E-Prescr ibed Sub s Allowed: subs OK Medic ationGen ericName : bupropio n HCl Not Available Not Available Not Available .5 (28) 1.5 mg-30 mcg (21)/75 mg (7) tablet TAKE 1 TABLET BY MOUTH EVERY DAY active Not Available Not Available No t Available fluticaso ne propionat e 115 mcg-salme terol 21 mcg/actua tion HFA inhaler TAKE 2 PUFFS BY MOUTH TWICE A DAY active Not Available Not Available No t Available Vyvanse 40 mg capsule 10/14 completed Medicati on ID: 001516 B rand Name: Manny Send Method: E-Prescr ibed Sub s Allowed: subs OK Medic ationGen ericName : Manny Not Available Not Available Not Available Vitals [...] ICD10 Code Diagnosis IMO Codes Diagnosis Note [id number] JAROD CORRAL MD [facility] [address] [address] 10/14/2024 14:13:27 10/14/2024 15:24:06 Atrophic flaccid right tympanic membrane 4868858929 225707 H73.811 Patulous r ight Eustachian tube 3788032700 565821 H69.01 Nasal vestibulitis 59245 000 J34.89 061838 80810 ANT PATTERSON MA, CCC-A [facility] [address] [address] 10/14/2024 14:15:34 10/14/2024 14:45:56 Atrophic flaccid right tympanic membrane 1538257695 552757 H73.811 Audiologic al evaluation results: Right ear: Normal hearing with excellent word recognitio n. Left ear: Normal hearing with excellent word recognitio n. Tympanomet ry: Right Ear:Type Ad ( 2.3) Left Ear:Type Ad ( 3.1) Health Concerns Section Related Observation LastModified by Organization Detai ls LastModified Time None Recorded Concern Status LastModified by Organization Details LastModified Time None Recorded Payers Encounter Date Sequence Insurance Name Policy Number Policy Schofield Covered Member ID Schofield Member ID Guarantor Name 10/14/2024 2 [place] [facility] [place] [id number] [place] 10/14/2024 1 [place] B[place] [employer] [facility] [place] [id number] [place] Notes Date Note Type Note Provider Name and Address Organization Details Recorded Time 10/14/2024 text/html Longstanding ANT PATTERSON [place], [facility] [address] [facility],[place] [address], [place], [address], [facility] - [facility] 11/27/2024 16:53:22 10/14/2024 text/html 18-year-old female with longstanding history of allergy. I evaluated her back in January 2023 at which point patient was clearly demonstrating signs of patulous eustachian tube on the right. Nasopharyngoscopy negative. I discussed the use of OTC compound Patulend versus consultation with Dr. Mike Mendoza at [facility] versus consideration of placement of tympanostomy tube in the office. This was never carried out. Additionally, she reports a painful bump inside her left nostril, which has been present for a few days and was initially thought to be a pimple. She notes similar symptoms previously on the opposite nostril. JAROD CORRAL MD [address] [facility],[address], [address], [facility] - [facility] 10/14/2024 15:25:36 10/30/2024 text/html Hx middle ear dysfunction ANT PATTERSON [place], [facility] [address] [facility],[place] [address], [place], [address], [facility] - [facility] 10/30/2024 09:59:14 OBGyn Episode No OBEpisode recorded.
--- OUTSIDE RECORDS SUMMARY | 2024-12-22 15:25 | XMS_ITS | Encounter Summary ---
Author Organization [facility] Address [address] [place], [place] [address] Phone Care Team Providers Care Account Manager Employee Benefits Name Role Phone Miguel Shore MD Primary Care Provider [phone] Encounter Details Date Type Department Care Team (Late st Contact Info) Description 09/28/2015 Documentation [facility] [place] Family Medicine [address] [place] [address] Family Medicine, Physician [address] [place], [place] [address] Social History Tobacco Use Types Packs/Day Years [...] on filedocumented in this encounter Care Teams Account Manager Employee Benefits Relationship Specialty Start Date End Date Miguel Shore MD [address] [place] [address] [place] [address] PCP - General 09/22/16 01/11/19 documented as of this encounter
--- OUTSIDE RECORDS SUMMARY | 2024-12-22 15:25 | XMS_ITS | Encounter Summary ---
Author Organization [facility] Address [address] [place], [place] [address] Phone Care Team Providers Care Restaurant Management Internship Name Role Phone Miguel Shore MD Primary Care Provider [phone] Encounter Details Date Type Department Care Team (Late st Contact Info) Description 08/30/2009 Documentation [facility] [place] Family Medicine [address] [place] [address] Family Medicine, Physician [address] [place], [place] [address] Social History Tobacco Use Types Packs/Day Years [...] on filedocumented in this encounter Care Teams Restaurant Management Internship Relationship Specialty Start Date End Date Miguel Shore MD [address] [place] [address] [place] [address] PCP - General 09/22/16 01/11/19 documented as of this encounter
--- OUTSIDE RECORDS SUMMARY | 2024-12-22 15:25 | XMS_ITS | Encounter Summary ---
Author Organization [facility] Address [address] [place], [place] [address] Phone Care Team Providers Care Air Conditioning Sheet Metal Installer Name Role Phone Miguel Shore MD Primary Care Provider [phone] Encounter Details Date Type Department Care Team (Late st Contact Info) Description 09/24/2015 Documentation [facility] [place] Family Medicine [address] [place] [address] Family Medicine, Physician [address] [place], [place] [address] Social History Tobacco Use Types Packs/Day Years [...] on filedocumented in this encounter Care Teams Air Conditioning Sheet Metal Installer Relationship Specialty Start Date End Date Miguel Shore MD [address] [place] [address] [place] [address] PCP - General 09/22/16 01/11/19 documented as of this encounter
--- OUTSIDE RECORDS SUMMARY | 2024-12-22 15:26 | XMS_ITS | Encounter Summary ---
Author Organization [facility] Address [address] [place] [address] Phone Care Team Providers Care Clothes Drier Repairer Name Role Phone Miguel Shore MD Primary Care Provider [phone] Encounter Details Date Type Department Care Team (Late st Contact Info) Description 05/19/[address] [facility] [place] Family Medicine [address] [place] [address] Family Medicine, Physician [address] [place], [place] [address]511 Social History Tobacco Use Types Packs/Day Years [...] on filedocumented in this encounter Care Teams Clothes Drier Repairer Relationship Specialty Start Date End Date Miguel Shore MD [address] [place] [address] [place] [address] PCP - General 09/22/16 01/11/19 documented as of this encounter
--- OUTSIDE RECORDS SUMMARY | 2024-12-22 15:26 | XMS_ITS | Clinical Summary ---
Author Organization [facility] Address [address] [place] [address] Care Team Providers Care Health Economist Name Role Phone Ju Arambula MD Primary Care Provider Source Comments Please note that some or [...] so, obtain the minor's consent prior to disclosure.[facility] Allergies Active Allergy Reactions Criticality Noted [...] to complete this topic Insurance [place] MEDICA[place] [facility] MEDICAID PART A AND B Care Teams Health Economist Relationship Specialty Start Date End Date Ju Arambula MD [address] [place] [address] KYRA ROBBINS [address] PCP - General General Pediatrics 09/13/22
--- OUTSIDE RECORDS SUMMARY | 2024-12-22 15:26 | XMS_ITS | Encounter Summary ---
Author Organization [facility] Address [address] [place], [place] [address] Phone Care Team Providers Care Alum Plant Operator Name Role Phone Miguel Shore MD Primary Care Provider [phone] Encounter Details Date Type Department Care Team (Late st Contact Info) Description 07/26/2011 Documentation [facility] [place] Family Medicine [address] [place] [address] Family Medicine, Physician [address] [place], [place] [address] Social History Tobacco Use Types Packs/Day Years [...] on filedocumented in this encounter Care Teams Alum Plant Operator Relationship Specialty Start Date End Date Miguel Shore MD [address] [place] [address] [place] [address] PCP - General 09/22/16 01/11/19 documented as of this encounter
--- OUTSIDE RECORDS SUMMARY | 2024-12-22 15:26 | XMS_ITS | Encounter Summary ---
Author Organization [facility] Address [address] [place], [place] [address] Phone Care Team Providers Care Laborer Tree Tapping Name Role Phone Miguel Shore MD Primary Care Provider [phone] Encounter Details Date Type Department Care Team (Late st Contact Info) Description 03/28/[address] [facility] [place] Family Medicine [address] [place] [address] Family Medicine, Physician [address] [place], [place] [address] Social History Tobacco Use Types Packs/Day Years [...] on filedocumented in this encounter Care Teams Laborer Tree Tapping Relationship Specialty Start Date End Date Miguel Shore MD [address] [place] [address] [place] [address] PCP - General 09/22/16 01/11/19 documented as of this encounter
--- OUTSIDE RECORDS SUMMARY | 2024-12-22 15:26 | XMS_ITS | Encounter Summary ---
Author Organization [facility] Address [address] [place], [place] [address] Phone Care Team Providers Care Fish Flipper Name Role Phone Miguel Shore MD Primary Care Provider [phone] Encounter Details Date Type Department Care Team (Late st Contact Info) Description 01/01/2013 Documentation [facility] [place] [address] [place] [address] Family Medicine, Physician [address] [place], [place] [address] Social History Tobacco Use Types Packs/Day Years [...] on filedocumented in this encounter Care Teams Fish Flipper Relationship Specialty Start Date End Date Miguel Shore MD [address] [place] [address] [place] [address] PCP - General 09/22/16 01/11/19 documented as of this encounter
--- OUTSIDE RECORDS SUMMARY | 2024-12-22 15:26 | XMS_ITS | Encounter Summary ---
Author Organization [facility] Address [address] [place], [place] [address] Phone Care Team Providers Care Plastics Worker Name Role Phone Miguel Shore MD Primary Care Provider [phone] Encounter Details Date Type Department Care Team (Late st Contact Info) Description 03/28/[address] [facility] [place] [address] [place] [address] Family Medicine, Physician [address] [place], [place] [address] Social History Tobacco Use Types Packs/Day Years [...] on filedocumented in this encounter Care Teams Plastics Worker Relationship Specialty Start Date End Date Miguel Shore MD [address] [place] [address] [place] [address] PCP - General 09/22/16 01/11/19 documented as of this encounter
--- OUTSIDE RECORDS SUMMARY | 2024-12-22 15:26 | XMS_ITS | Encounter Summary ---
Author Organization [facility] Address [address] [place] [address] Phone Care Team Providers Care Mine Motor Operator Name Role Phone Miguel Shore MD Primary Care Provider [phone] Encounter Details Date Type Department Care Team (Late st Contact Info) Description 11/19/2012 Documentation [facility] [place] Family Medicine [address] [place] [address] Family Medicine, Physician [address] [place], [place] [address] Social History Tobacco Use Types Packs/Day Years [...] on filedocumented in this encounter Care Teams Mine Motor Operator Relationship Specialty Start Date End Date Miguel Shore MD [address] [place] [address] [place] [address] PCP - General 09/22/16 01/11/19 documented as of this encounter
--- OUTSIDE RECORDS SUMMARY | 2024-12-22 15:26 | XMS_ITS | Encounter Summary ---
Author Organization [facility] Address [address] [place] [address] Phone Care Team Providers Care Child Psychology Teacher Name Role Phone Miguel Shore MD Primary Care Provider [phone] Encounter Details Date Type Department Care Team (Late st Contact Info) Description 04/07/2010 Documentation [facility] [place] [facility] [place] [address] [place] [address] Family Medicine, Physician [address] [place], [place] [address] Social History Tobacco Use Types Packs/Day Years [...] on filedocumented in this encounter Care Teams Child Psychology Teacher Relationship Specialty Start Date End Date Miguel Shore MD [address] [place] [address] [place] [address] PCP - General 09/22/16 01/11/19 documented as of this encounter
--- OUTSIDE RECORDS SUMMARY | 2024-12-22 15:26 | XMS_ITS | Continuity of Care Document ---
Author Organization [place] [facility], [facility] Address [address] [place] [address] Care Team Providers Care Pick Up Worker Name Role RAS Worrell Primary Care Provider Assessment Encounter Date Assessment Date Assessment LastModified [...] based on the outcomes of the treatments. [email or web address] Not available 10/14/2024 15:25:22 Plan of Treatment Reminders Order Date Submit Date Provider Last Modified By Organization Details Last Modified Time Details Appointments PROCEDURE 15 2024 10:50A M JAROD CORRAL MD Not available Not available Not available Lab None recorded. Referral None recorded. Procedures None recorded. Surgeries None recorded. Imaging None recorded. Medication Orders mupirocin 2 % topical ointment 2024 025 [facility] #[id number], [address], [place], [address], 10/14/2024 15:22:56 Patient TargetsNo targets recorded. Patient Instructions Encounter Date Encounter Id Patient Instructions Last Modified By Organization Details Last Modified Time 10/14/2024 [id number] Apply the prescribed nasal cream to both nostrils three times daily using a clean pinky finger with a short nail. Avoid applying the cream while driving or in public settings. Schedule the tube placement procedure at the front end assistant before leaving the office. [email or web address] Not available 10/14/2024 15:23:26 Please note: Parts of this encounter note have been generated by AI based on audio conversation. Patient consent was required prior to utilizing this technology. Content review was required prior to finalizing the note. [email or web address] Not available 10/14/2024 15:23:26 Reason for Referral [...] Details Recorded Time Otalgia of right ear 7289589825 Active 2020 Otalgia, right ear; Note: Date Diagnosed : 09/02/2020 1:11 PM (H92.01) Not Available [facility] 4 03:16:14 Bilateral disorder of Eustachia n tubes 29245818903 44268 Active 2020 Other specified disorders of Eustachia n tube, bilateral ; Note: Date Diagnosed : 01/12/2021 4:35 PM (H69.83) Not Available [facility] 4 03:16:14 Hypertrop hy of nasal turbinate s 11656721 Active 2022 Hypertrop hy of nasal turbinate s; Note: Date Diagnosed : 3 4:12 PM (J34.3) Not Available [facility] 4 03:16:14 Allergic rhinitis 39533617 Active 2022 Other allergic rhinitis; Note: Date Diagnosed : 3 4:12 PM (J30.89) Not Available [facility] 4 03:16:14 Conductiv e hearing loss 31286049 Active 2022 Conductiv e hearing loss, unilatera l, right ear, with unrestric olivia hearing on the contralat eral side; Note: Date Diagnosed : 3 5:07 PM (H90.11) Not Available [facility] 4 03:16:15 Atrophic flaccid right tympanic membrane 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 Procedures Surgical History Date Name Laterality Status Provider Name and Address Organization Details Recorded Time 10/30/2024 Air & Speech Audio with Tymps - 47824, 62132 & 60639 completed ANT PATTERSON MA, [facility] [address] [place] [address], [place], [address], [facility] - [facility] 10/30/2024 09:57:13 10/14/2024 Air & Speech Audio with Tymps - 97362, 60466 & 12737 completed ANT PATTERSON MA, CCC-A [address] [place] [address],[place] [address], [address], [facility] - [facility] 10/14/2024 14:47:03 Imaging Results None recorded. Procedure Notes None recorded. Medical Equipment None Reported. Allergies Allergen ID Allergen Name Allergen Category Reaction Reaction Severity Criticality Documentation Date Start Date Code Code System Note Provider Name and Address Organization Details Recorded Time 488619 chocolate flavor food,medi cation other Not available Not available 06/26/2023 React ion: other react ion, Unkno wn; Not Available [facility] 4 01:15:54 466981 cat dander environme nt other Not available Not available 06/26/2023 React ion: other react ion, Unkno wn; Not Available [facility] 4 01:15:55 289100 nut - unspecifi ed food other Not available Not available 06/26/2023 React ion: other react ion, Unkno wn; Not Available [facility] 4 01:15:56 Medications Name Sig Start Date [...] xtended release 12/06 completed Medicati on ID: [id number] B rand Name: Adderall XR Send Method: [...] as directed 10/14 completed Medicati on ID: [id number] D uration Value: 30 Brand Name: azdeesti ne Send Method: E-Prescr ibed Sub s [...] a day 10/14 completed Medicati on ID: [id number] D uration Value: 30 Brand Name: fluticas [...] extended release 10/14 completed Medicati on ID: [id number] B rand Name: bupropio n HCl Send [...] mg capsule 10/14 completed Medicati on ID: [id number] B rand Name: Vyvanse Send Method: E-Prescr [...] ICD10 Code Diagnosis IMO Codes Diagnosis Note [id number] JAROD CORRAL MD [facility] [address] [address] 10/14/2024 14:13:27 10/14/2024 15:24:06 Atrophic flaccid right tympanic membrane [id number] 544943 H73.811 Patulous r ight Eustachian tube 6874726907 582699 H69.01 Nasal vestibulitis 83987 000 J34.89 994568 [id number] ANT PATTERSON MA, CCC-A [facility] [address] [address] 10/14/2024 14:15:34 10/14/2024 14:45:56 Atrophic flaccid right tympanic membrane [id number] 493304 H73.811 Audiologic al evaluation results: Right ear: [...] Member ID Guarantor Name 10/14/2024 2 [place] [id number] [place] 10/14/2024 1 [place]IC[place] B[place] [email or web address] [place] [id number] [place] Notes Date Note Type Note Provider Name and Address Organization Details Recorded Time 10/14/2024 text/html Longstanding ANT PATTERSON MA, CCC-A [address] [place] [address], [place], [address], [facility] - [facility] 11/27/2024 16:53:22 10/14/2024 text/html 18-year-old female with longstanding history of allergy. I evaluated her back in January 2023 at which point patient was clearly demonstrating signs of patulous eustachian tube on the right. Nasopharyngoscopy negative. I discussed the use of OTC compound Patulend versus consultation with Dr. Mike Mendoza at [facility] versus consideration of placement of tympanostomy tube in the office. This was never carried out. Additionally, she reports a painful bump inside her left nostril, which has been present for a few days and was initially thought to be a pimple. She notes similar symptoms previously on the opposite nostril. JAROD CORRAL MD [address] [facility] [address], [place], [address], [facility] - [facility] 10/14/2024 15:25:36 OBGyn Episode No OBEpisode recorded.
--- OUTSIDE RECORDS SUMMARY | 2024-12-22 15:26 | XMS_ITS | Encounter Summary ---
Author Organization [facility] Address [address] [place], [place] [address] Phone Care Team Providers Care Environmental Science Program Director Name Role Phone Miguel Shore MD Primary Care Provider [phone] Encounter Details Date Type Department Care Team (Late st Contact Info) Description 09/28/2016 Conversion Encounter [facility] [place] [address] [place] [address] Social History Tobacco Use Types Packs/Day Years [...] on filedocumented in this encounter Care Teams Environmental Science Program Director Relationship Specialty Start Date End Date Miguel Shore MD [address] [place] [address] PCP - General 09/22/16 01/11/19 documented as of this encounter
--- OUTSIDE RECORDS SUMMARY | 2024-12-22 15:26 | XMS_ITS | Encounter Summary ---
Author Organization [facility] Address [address] [place], [place] [address] Phone Care Team Providers Care Print Machine Operator Name Role Phone Miguel Shore MD Primary Care Provider [phone] Encounter Details Date Type Department Care Team (Late st Contact Info) Description 10/27/2013 Documentation [facility] [place] [address] [place] [address] Family Medicine, Physician [address] [place], [place] [address] Social History Tobacco Use Types Packs/Day Years [...] on filedocumented in this encounter Care Teams Print Machine Operator Relationship Specialty Start Date End Date Miguel Shore MD [address] [place] [address] [place] [address] PCP - General 09/22/16 01/11/19 documented as of this encounter
--- OUTSIDE RECORDS SUMMARY | 2024-12-22 15:26 | XMS_ITS | Encounter Summary ---
Author Organization [facility] Address [address] [place] [address] Phone Care Team Providers Care Cinema Or Theatre Manager Name Role Phone Miguel Shore MD Primary Care Provider [phone] Encounter Details Date Type Department Care Team (Late st Contact Info) Description 03/01/2016 Documentation [facility] [place] [address] [place] [address] Family Medicine, Physician [address] [place], [place] [address] Social History Tobacco Use Types Packs/Day Years [...] on filedocumented in this encounter Care Teams Cinema Or Theatre Manager Relationship Specialty Start Date End Date Miguel Shore MD [address] [place] [address] [place] [address] PCP - General 09/22/16 01/11/19 documented as of this encounter
--- OUTSIDE RECORDS SUMMARY | 2024-12-22 15:26 | XMS_ITS | Encounter Summary ---
Author Organization [facility] Address [address] [place], [place] [address] Phone Care Team Providers Care Wildlife Forensic Geneticist Name Role Phone Miguel Shore MD Primary Care Provider [phone] Encounter Details Date Type Department Care Team (Late st Contact Info) Description 11/22/2012 Documentation [facility] [place] Family Medicine [address] [place] [address] Family Medicine, Physician [address] [place], [place] [address] Social History Tobacco Use Types Packs/Day Years [...] on filedocumented in this encounter Care Teams Wildlife Forensic Geneticist Relationship Specialty Start Date End Date Miguel Shore MD [address] [place] [address] [place] [address] PCP - General 09/22/16 01/11/19 documented as of this encounter
--- OUTSIDE RECORDS SUMMARY | 2024-12-22 15:26 | XMS_ITS | Encounter Summary ---
Author Organization [facility] Address [address] [place], [place] [address] Phone Care Team Providers Care Irrigator Gravity Flow Name Role Phone Miguel Shore MD Primary Care Provider [phone] Encounter Details Date Type Department Care Team (Late st Contact Info) Description 05/25/2011 Documentation [facility] [place] [address] [place] [address] Family Medicine, Physician [address] [place], [place] [address] Social History Tobacco Use Types Packs/Day Years [...] on filedocumented in this encounter Care Teams Irrigator Gravity Flow Relationship Specialty Start Date End Date Miguel Shore MD [address] [place] [address] [place] [address] PCP - General 09/22/16 01/11/19 documented as of this encounter
--- OUTSIDE RECORDS SUMMARY | 2024-12-22 15:26 | XMS_ITS | Encounter Summary ---
Author Organization [facility] Address [address] [place] [address] Phone Care Team Providers Care Export Sales Manager Name Role Phone Miguel Shore MD Primary Care Provider [phone] Encounter Details Date Type Department Care Team (Late st Contact Info) Description 05/19/2016 Documentation [facility] [place] Family Medicine [address] [place] [address] Family Medicine, Physician [address] [place], [place] [address] Social History Tobacco Use Types Packs/Day Years [...] on filedocumented in this encounter Care Teams Export Sales Manager Relationship Specialty Start Date End Date Miguel Shore MD [address] [place] [address] [place] [address] PCP - General 09/22/16 01/11/19 documented as of this encounter
--- OUTSIDE RECORDS SUMMARY | 2024-12-22 15:26 | XMS_ITS | Data Portability ---
Author Organization [place] - [facility], Allergy Address [address] [address] Care Team Providers Care Retail Store Assistant Name Role RAS Worrell Primary Care Provider [phone] Assessment Encounter Date Assessment Date Assessment LastModified [...] based on the outcomes of the treatments. [email or web address] Not available 10/14/2024 15:25:22 Plan of Treatment Reminders Order Date Submit Date Provider Last Modified By Organization Details Last Modified Time Details Appointments PROCEDURE 15 2024 10:50A M JAROD CORRAL MD Not available Not available Not available Lab None recorded. Referral None recorded. Procedures None recorded. Surgeries None recorded. Imaging None recorded. Medication Orders mupirocin 2 % topical ointment 2024 [id number] [facility]/Pharmacy #[id number], [address] [place], [address], 10/14/2024 15:22:56 Patient TargetsNo targets recorded. Patient Instructions Encounter Date Encounter Id Patient Instructions Last Modified By Organization Details Last Modified Time 10/14/2024 [id number] Apply the prescribed nasal cream to both nostrils three times daily using a clean pinky finger with a short nail. Avoid applying the cream while driving or in public settings. Schedule the tube placement procedure at the desktop analyst before leaving the office. [email or web address] Not available 10/14/2024 15:23:26 Please note: Parts of this encounter note have been generated by AI based on audio conversation. Patient consent was required prior to utilizing this technology. Content review was required prior to finalizing the note. [email or web address] Not available 10/14/2024 15:23:26 Reason for Referral [...] Details Recorded Time Otalgia of right ear 5112511775 Active 2020 Otalgia, right ear; Note: Date Diagnosed : 09/02/2020 1:11 PM (H92.01) Not Available [facility] 4 03:16:14 Bilateral disorder of Eustachia n tubes 33076930868 15039 Active 2020 Other specified disorders of Eustachia n tube, bilateral ; Note: Date Diagnosed : 01/12/2021 4:35 PM (H69.83) Not Available [facility] 4 03:16:14 Hypertrop hy of nasal turbinate s 01799497 Active 2022 Hypertrop hy of nasal turbinate s; Note: Date Diagnosed : 3 4:12 PM (J34.3) Not Available [facility] 4 03:16:14 Allergic rhinitis 76134360 Active 2022 Other allergic rhinitis; Note: Date Diagnosed : 3 4:12 PM (J30.89) Not Available [facility] 4 03:16:14 Conductiv e hearing loss 21384366 Active 2022 Conductiv e hearing loss, unilatera l, right ear, with unrestric olivia hearing on the contralat eral side; Note: Date Diagnosed : 3 5:07 PM (H90.11) Not Available [facility] 4 03:16:15 Atrophic flaccid right tympanic membrane 62017189578 40320 Active 2022 Atrophic flaccid tympanic membrane, right ear; Note: Date Diagnosed : 3 5:07 PM (H73.811) Not Available [facility] 4 03:16:14 Patulous right Eustachia n tube 39735368167 80336 Active 2022 Patulous Eustachia n tube, right ear; Note: Date Diagnosed : 3 5:03 PM (H69.01) Not Available [facility] 4 03:16:15 Nasal vestibuli tis 37500481 Active 2024 JAROD CORRAL MD [address] [place] [address], [address] , [facility] - [facility] 5 15:22:06 Problem Notes None recorded. Procedures Surgical History Date Name Laterality Status Provider Name and Address Organization Details Recorded Time 10/30/2024 Air & Speech Audio with Tymps - 11974, 70706 & 11495 completed ANT PATTERSON MA, [facility] [address] [place] [address], [phone], [facility] - [facility] 10/30/2024 09:57:13 10/14/2024 Air & Speech Audio with Tymps - 97292, 94496 & 55587 completed ANT PATTERSON MA, [facility] [address] [place] [address], [address], [facility] - [facility] 10/14/2024 14:47:03 Imaging Results None recorded. Procedure Notes None recorded. Medical Equipment None Reported. Allergies Allergen ID Allergen Name Allergen Category Reaction Reaction Severity Criticality Documentation Date Start Date Code Code System Note Provider Name and Address Organization Details Recorded Time 345750 chocolate flavor food,medi cation other Not available Not available 06/26/2023 React ion: other react ion, Unkno wn; Not Available [facility] 4 01:15:54 090153 cat dander environme nt other Not available Not available 06/26/2023 React ion: other react ion, Unkno wn; Not Available [facility] 4 01:15:55 634887 nut - unspecifi ed food other Not available Not available 06/26/2023 React ion: other react ion, Unkno wn; Not Available [facility] 4 01:15:56 Medications Name Sig Start Date [...] xtended release 12/06 completed Medicati on ID: [id number] B rand Name: Adderall XR Send Method: [...] as directed 10/14 completed Medicati on ID: [id number] D uration Value: 30 Brand Name: rachaelstjg [...] a day 10/14 completed Medicati on ID: [id number] D uration Value: 30 Brand Name: fluticas [...] extended release 10/14 completed Medicati on ID: [id number] B rand Name: bupropio n HCl Send [...] mg capsule 10/14 completed Medicati on ID: [id number] B rand Name: Vyvanse Send Method: E-Prescr [...] ICD10 Code Diagnosis IMO Codes Diagnosis Note [id number] JAROD CORRAL MD [facility] [address] [address] 10/14/2024 14:13:27 10/14/2024 15:24:06 Atrophic flaccid right tympanic membrane [id number] 590966 H73.811 Patulous r ight Eustachian tube 6720484325 871430 H69.01 Nasal vestibulitis 90446 000 J34.89 [id number] ANT PATTERSON MA, CCC-A [facility] [address] [address] 10/14/2024 14:15:34 10/14/2024 14:45:56 Atrophic flaccid right tympanic membrane 2062408964 932759 H73.811 Audiologic al evaluation results: Right ear: Normal hearing with excellent word recognitio n. Left ear: Normal hearing with excellent word recognitio n. Tympanomet ry: Right Ear:Type Ad ( 2.3) Left Ear:Type Ad ( 3.1) [id number] ANT PATTERSON MA, CCC-A [facility] [address] [address] 10/30/2024 09:56:04 10/30/2024 11:42:58 Otalgia of right ear 2291534395 H92.01 Audiologic al evaluation results: Right ear: [...] Member ID Guarantor Name 11/16/2024 2 [place] [facility] [place] [id number] [place] 11/19/2024 1 MEDICARE B-[place]: [facility] [place] [id number] [place] 07/31/2024 2 [place] [facility] [place] [id number] [place] Notes Date Note Type Note Provider Name and Address Organization Details Recorded Time 10/14/2024 text/html Longstanding ANT PATTERSON MA, [facility] [address] [place] [address], [phone], [facility] - [facility] 11/27/2024 16:53:22 10/14/2024 text/html 18-year-old female with longstanding history of allergy. I evaluated her back in January 2023 at which point patient was clearly demonstrating signs of patulous eustachian tube on the right. Nasopharyngoscopy negative. I discussed the use of OTC compound Patulend versus consultation with Dr. Mike Mendoza at [facility] versus consideration of placement of tympanostomy tube in the office. This was never carried out. Additionally, she reports a painful bump inside her left nostril, which has been present for a few days and was initially thought to be a pimple. She notes similar symptoms previously on the opposite nostril. JAROD CORRAL MD [address] [place] [address], [phone], [facility] - [facility] [place] 10/14/2024 15:25:36 10/30/2024 text/html Hx middle ear dysfunction ANT PATTERSON MA, [facility] [address] [place] [address], [phone], [facility] - [facility] [place] 10/30/2024 09:59:14 OBGyn Episode No OBEpisode recorded.
--- OUTSIDE RECORDS SUMMARY | 2024-12-22 15:26 | XMS_ITS | Encounter Summary ---
Author Organization [facility] Address [address] [place], [place] [id number] Phone Care Team Providers Care Casting Plug Assembler Name Role Phone Miguel Shore MD Primary Care Provider [phone] Encounter Details Date Type Department Care Team (Late st Contact Info) Description 08/25/2013 Documentation [facility] Family Medicine [address] [place] [address] Family Medicine, Physician [address] [place], [place] [address] Social History Tobacco Use Types Packs/Day Years [...] on filedocumented in this encounter Care Teams Casting Plug Assembler Relationship Specialty Start Date End Date Miguel Shore MD [address] [place] [address] [place] [address] PCP - General 09/22/16 01/11/19 documented as of this encounter
--- OUTSIDE RECORDS SUMMARY | 2024-12-22 15:26 | XMS_ITS | Continuity of Care Document ---
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 [employer] Name Role Phone RAS CARRANZA Primary Care [...] Details Recorded Time Otalgia of right ear 2056479465 Active 2020 Otalgia, right ear; Note: Date Diagnosed : 09/02/2020 1:11 PM (H92.01) Not Available [facility] 4 03:16:14 Bilateral disorder of Eustachia n tubes 17397976792 49010 Active 2020 Other specified disorders of Eustachia n tube, bilateral ; Note: Date Diagnosed : 01/12/2021 4:35 PM (H69.83) Not Available [facility] 4 03:16:14 Hypertrop hy of nasal turbinate s 21421622 Active 2022 Hypertrop hy of nasal turbinate s; Note: Date Diagnosed : 3 4:12 PM (J34.3) Not Available [facility] 4 03:16:14 Allergic rhinitis 04143252 Active 2022 Other allergic rhinitis; Note: Date Diagnosed : 3 4:12 PM (J30.89) Not Available [facility] 4 03:16:14 Conductiv e hearing loss 39058843 Active 2022 Conductiv e hearing loss, unilatera l, right ear, with unrestric olivia hearing on the contralat eral side; Note: Date Diagnosed : 3 5:07 PM (H90.11) Not Available [facility] 4 03:16:15 Atrophic flaccid right tympanic membrane 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 Procedures Surgical History Date Name Laterality Status Provider Name and Address Organization Details Recorded Time 10/30/2024 Air & Speech Audio with Tymps - 91523, 75826 & 01753 completed ANT PATTERSON MA, CCC-A [address] [facility],[place] [address], [place], [address], [place] - [facility] [place] 10/30/2024 09:57:13 10/14/2024 Air & Speech Audio with Tymps - 02501, 04169 & 27446 completed ANT PATTERSON MA, [facility] [address] [place] [address],[place] [address], [place], [address], [place] - [facility] [place] 10/14/2024 14:47:03 Imaging Results None recorded. Procedure Notes None recorded. Medical Equipment None Reported. Allergies Allergen ID Allergen Name Allergen Category Reaction Reaction Severity Criticality Documentation Date Start Date Code Code System Note Provider Name and Address Organization Details Recorded Time 224112 chocolate flavor food,medi cation other Not available Not available 06/26/2023 React ion: other react ion, Unkno wn; Not Available [facility] 4 01:15:54 435185 cat dander environme nt other Not available Not available 06/26/2023 React ion: other react ion, Unkno wn; Not Available [facility] 4 01:15:55 121064 nut - unspecifi ed food other Not available Not available 06/26/2023 React ion: other react ion, Unkno wn; Not Available [facility] 4 01:15:56 Medications Name Sig Start Date [...] xtended release 12/06 completed Medicati on ID: [id number] B rand Name: Adderall XR Send Method: [...] as directed 10/14 completed Medicati on ID: [id number] D uration Value: 30 Brand Name: azelasti [...] a day 10/14 completed Medicati on ID: [id number] D uration Value: 30 Brand Name: fluticas [...] extended release 10/14 completed Medicati on ID: [id number] B rand Name: bupropio n HCl Send [...] mg capsule 10/14 completed Medicati on ID: [id number] B rand Name: Manny Send Method: E-Prescr ibed Sub s Allowed: subs OK Medic atdomingoGen ericName : Manny Not Available Not Available [...] ICD10 Code Diagnosis IMO Codes Diagnosis Note [id number] JAROD CORRAL MD [facility] [address] [address] 10/14/2024 14:13:27 10/14/2024 15:24:06 Atrophic flaccid right tympanic membrane 3916245884 125520 H73.811 Patulous r ight Eustachian tube 2236620705 305911 H69.01 Nasal vestibulitis 86715 000 J34.89 193501 [id number] ANT PATTERSON MA, CCC-A [facility] [address] [address] 10/14/2024 14:15:34 10/14/2024 14:45:56 Atrophic flaccid right tympanic membrane 1511451300 178996 H73.811 Audiologic al evaluation results: Right ear: Normal hearing with excellent word recognitio n. Left ear: Normal hearing with excellent word recognitio n. Tympanomet ry: Right Ear:Type Ad ( 2.3) Left Ear:Type Ad ( 3.1) [id number] ANT PATTERSON MA, CCC-A [facility] [address] [address] 10/30/2024 09:56:04 10/30/2024 11:42:58 Otalgia of right ear 0812871891 H92.01 Audiologic al evaluation results: Right ear: [...] Member ID Schofield Member ID Guarantor Name 10/30/2024 2 [place]: [facility] [place] [id number] [place] 10/30/2024 1 MEDICARE B-[place]: [employer] [place] [id number] [place] Notes Date Note Type Note Provider Name and Address Organization Details Recorded Time 10/30/2024 text/html Hx middle ear dysfunction ANT PATTERSON MA, [facility]-A [address] [place] [address], [address], [facility] - [facility] 10/30/2024 09:59:14 OBGyn Episode No OBEpisode recorded.
--- OUTSIDE RECORDS SUMMARY | 2024-12-22 15:26 | XMS_ITS | Encounter Summary ---
Author Organization [facility] Address [address] [place] [address] Phone Care Team Providers Care Superintendent Sales Name Role Phone Miguel Shore MD Primary Care Provider [phone] Encounter Details Date Type Department Care Team (Late st Contact Info) Description 05/19/2016 Documentation [facility] Family Medicine [address] [place] [address] Family Medicine, Physician [address] [place], [place] [address] Social History Tobacco Use Types Packs/Day Years [...] on filedocumented in this encounter Care Teams Superintendent Sales Relationship Specialty Start Date End Date Miguel Shore MD [address] [place] [address] [place] [address] PCP - General 09/22/16 01/11/19 documented as of this encounter
--- OUTSIDE RECORDS SUMMARY | 2024-12-22 15:26 | XMS_ITS | Encounter Summary ---
Author Organization [facility] Address [address] [place], [place] [address] Phone Care Team Providers Care Energy Attorney Name Role Phone Miguel Shore MD Primary Care Provider [phone] Encounter Details Date Type Department Care Team (Late st Contact Info) Description 12/14/2011 Documentation [facility] Family Medicine [address] [place] [address] Family Medicine, Physician [address] [place], [place] [address] Social History Tobacco Use Types Packs/Day Years [...] on filedocumented in this encounter Care Teams Energy Attorney Relationship Specialty Start Date End Date Miguel Shore MD [address] [place] [address] [place] [address] PCP - General 09/22/16 01/11/19 documented as of this encounter
--- OUTSIDE RECORDS SUMMARY | 2024-12-22 15:26 | XMS_ITS | Encounter Summary ---
Author Organization [facility] Address [address] [place] [address] Phone Care Team Providers Care Skin Piler Name Role Phone Unavailable Primary Care Provider Unavailabl e Reason for Visit * Reason Comments Med Refill Encounter Details Date Type Department Care Team (Late st Contact Info) Description 07/04/2020 Refill [facility] [address] [place] [address] Andressa Bains, [address] [place], [place] [phone] Moderate persistent asthma with acute exacerbation Social [...] message left on unidentified a/m to call [facility] proair refill 07/03/20 documented in this encounter Plan of Treatment Not on file documented as of this encounter Visit Diagnoses Diagnosis Moderate persistent asthma with acute exacerbation documented in this encounter
--- OUTSIDE RECORDS SUMMARY | 2024-12-22 15:26 | XMS_ITS | Clinical Summary ---
Author Organization [facility] Address [address] [place] [address] Phone Care Team Providers Care Paper Machine Backtender Name Role Phone Ju Arambula MD Unavailable [phone] Miguel Shore MD Primary Care Provider Miguel Shore MD Unavailable [phone] Medications * This document contains information received from the source organization and may not represent a complete record from that organization. buPROPion XL (Wellbutrin XL) 300 mg 24 hr tablet Dose: 300 mg, Dose Amount: 1 tab, PO, Q24hr, Dispense Quantity: 30 tab, Refills: 1, Entered: 09/11/22 12:25:00 EDT, [facility]/pharmacy #[id number] 3 Active cetirizine (ZyrTEC) 10 mg tablet Dose: 10 mg, Dose Amount: 1 tab, PO, daily, Dispense Quantity: 90 tab, Refills: 3, Entered: 06/28/18 11:35:41 EDT, [facility] 65569 9 Active clindamycin (Cleocin-T) 1 % lotion Dose Amount: 1 appl, TOP, BID, Special Instructions: apply to affected bumps in armpits and groin and to legs after shaving, Dispense Quantity: 60 mL, Refills: 6, Entered: 01/31/18 13:06:[facility] 8 Active dulaglutide (Trulicity) 0.75 mg/0.5 mL [...] EA, Refills: 3, Entered: 11/06/18 9:27:00 EDT, [facility][id number] 9 Active ketoconazole (NIZOral) 2 % shampoo Dose Amount: 1 appl, TOP, As Directed, Special Instructions: lather onto scalp, leave on for 5 min and rinse off 2x/week, Dispense Quantity: 120 mL, Refills: 6, Entered: 01/31/18 13:13:26 EST, [facility] 91035 8 Active ketotifen (Zaditor) 0.025 % (0.035 %) ophthalmic solution Dose Amount: 1 drop, Eye Both, BID, Dispense Quantity: 7 mL, Refills: 3, Entered: 06/28/18 11:39:44 EDT, [facility] 06834 9 Active lisdexamfetamin e (Vyvanse) 40 mg capsule Dose: 40 mg, Dose Amount: 1 cap, PO, DailyMorning, Dispense Quantity: 60 cap, Refills: 0, Entered: 08/28/22 16:19:00 EDT, [facility]/pharmacy #[id number] 3 Active montelukast (Singulair) 10 mg tablet Dose: 10 mg, Dose Amount: 1 tab, PO, daily, Dispense Quantity: 90 tab, Refills: 3, Entered: 06/28/18 11:38:58 EDT, [facility] 29754 9 Active Social History Tobacco Use Types [...] of Treatment Not on file Care Teams Paper Machine Backtender Relationship Specialty Start Date End Date Ralf, Ju Cueto MD [address] [place], [place] [phone] PCP - Insurance PCP 08/18/22 Miguel Shore MD [address] [place] [address] PCP - General 12/22/08 Miguel Shore MD [address] [place] [address] PCP - Clinical PCP 06/15/10
--- OUTSIDE RECORDS SUMMARY | 2024-12-22 15:26 | XMS_ITS | Encounter Summary ---
Author Organization [facility] Address [address] [place] [address] Phone Care Team Providers Care Office Administration Name Role Phone Miguel Shore MD Primary Care Provider [phone] Encounter Details Date Type Department Care Team (Late st Contact Info) Description 07/09/2013 Documentation [facility] Family Medicine [address] [place] [address] Family Medicine, Physician [address] [place], [place] [address] Social History Tobacco Use Types Packs/Day Years [...] on filedocumented in this encounter Care Teams Office Administration Relationship Specialty Start Date End Date Miguel Shore MD [address] [place] [address] [place] [address] PCP - General 09/22/16 01/11/19 documented as of this encounter
--- OUTSIDE RECORDS SUMMARY | 2024-12-22 15:26 | XMS_ITS | Clinical Summary ---
Author Organization [facility] Address [address] [place] [phone] Phone Care Team Providers Care Shipping Hand Name Role Phone Unavailable Primary Care Provider [...] 7 Active Respiratory Therapy Supplies (PILLOW MASK/CHILD) [facility] [place]; tubing, nebulizer and nouthpeice to [...] not, we will consider provera challenge vs SERVICE OBSERVER CHIEF referral. Mom not aware La's request for [...] not, we will consider provera challenge vs SERVICE OBSERVER CHIEF referral. Mom not aware La's request for [...] IEP. Some As/ B and D/F in bruneian/reading and writing. La does not easily accept help. Seeing psych at [facility]. Mom has had concerns about La's ability to live independantly. [facility] [place] been involved but now La has psych at [facility]. Detailed History and Chronology of care: 07/19/2020 [...] (age 15yr 8mo): Now seeing psych at [facility]. On vyvanse and fluoxetine 60 mg. 08/08/2021 (age 15yr 8mo): Still struggling with school. La did pass the year but mom reports she is not progress academically. Has IEP. Some As/ B and D/F in bruneian/reading and writing. La does not easily accept help. Seeing psych at [facility]. Assessment & Plan (08/08/2021 12:17 PM EDT): 08/08/2021 (age 15yr 8mo): Still struggling with school. La did pass the year but mom reports she is not progress academically. Has IEP. Some As/ B and D/F in bruneian/reading and writing. La does not easily accept help. Seeing psych at [facility]. Mom has had concerns about La's ability to live independantly. [facility] [place] been involved but now La has psych at [facility]. Assessment & Plan (08/17/2020 12:47 PM EDT): [...] upper extremity 12/23/2019 Overview (12/23/2019): Added by [facility] Anxiety and depression 10/31/2019 Overview (10/31/2023): 10/31/2023 (age 17 y.o.): No current meds, still has provider but hasn't seen them. Mom wants La on meds. Has walk in clinic number - Last Specialist Visit: 06/20/2022 -09/23/22 : [facility] plan for 12 individual and family therapy sessions. Work on calming strategies, aerobic exercise, and habit reversal skills. On wellbutrin 11/22/2022 (age 16yr): Asking for med refill for wellbutrin. Gave number for [facility] walk in clinic. On waiting list for psych through [facility]. History 11/2018: Started Fluoxetine 10/31/2019 Sees provider (Dr. Lester) at [facility]. On Adderal 30 and fluoxetine 20 mg. 11/2019: Fluoxetine increased from 20 mg to 30 mg. 03/08/2020: Adderal XR decreased from 30 mg to 20 mg. Clonidine discontinued. 03/16/2020: Discharged from [place] due to not needing therapy for anxiety. I will take over prescribing fluoxetine. La can come back to [place] (therapist) and Dr. Lester at [place] if she runs in to issues. 07/05/2020 (age 14yr 7mo): Increase fluoxetine from 30 mg to 40 mg for increased sleeping and increased self isolation. In PHQ9 and TANYA 7 as well. 12/20/2020 (age 15yr 0mo) has been a little better. Socializing more, seems happier, is on waiting list for [facility].. [facility] for treatment of ADHD, anxiety, depresion, [...] 08/09/2022 (age 16yr): Missed an appt at [facility] and her therapist is also moving to [place]. She may need to go back on the waiting list. Has been continuing with [facility] psych for now. Will be changing meds. - Last Specialist Visit: 06/20/2022: [facility] initial evaluation, plan for 12 individual and family therapy sessions. Work on calming strategies, aerobic exercise, and habit reversal skills. - will ask [facility] to contact mom with walk in clinic information. Assessment & Plan (03/22/2022 3:46 PM EST): 03/22/2022 (age 16yr): Had a psychiatrist but was unable to keep seem them after the age of 16. Needs a new psychiatrist. Gave psych list. Assessment & Plan (08/08/2021 12:13 PM EDT): 08/07/2021 (age 15yr 8mo): Now followed by [facility] psych, Continues on fluoxetine, now at 60 mg. On a waiting list for counselor in [place] Assessment & Plan (12/20/2020 9:18 PM EST): 12/20/2020 (age 15yr 0mo): Has been on fluoxetine since 11/2018. 07/05/2020 Increase fluoxetine from 30 mg to 40 mg for increased sleeping and increased self isolation. Today, She has been a little better. Socializing more, seems happier. Her anxiety seems better. Mom called [facility] to get back to previous psychiatrist, is on waiting list. Will refer [facility] for treatment of ADHD, anxiety, depresion, [...] like to see her go back to [facility] to see the psychiatrist, psychiatrist, and communications electrician supervisor that she has seen in the past. We may need another follow up depending on whether and when mom gets the appointment with [facility]. Mom states she has the number and [...] back to [place] and Dr. Lester at [place] if she runs in to issues. She [...] Refer to derm, can not longer see [facility] derm (see problems). Has [facility] psych for now, Continues on fluoxetine, now at 60 mg. - Last Specialist Visit: 06/20/2022: [facility] initial evaluation, plan for 12 individual and family therapy sessions. Work on calming strategies, aerobic exercise, and habit reversal skills. History: Has been followed by [facility] in the past, lost to follow up 11/2018: Started fluoxetine for anxiety/skin picking 10/31/2019 Sees provider at [facility]. On Adderal 30 and fluoxetine 20 mg. 03/08/2020: Referred to pig machine operator and communications electrician supervisor locally. 03/16/2020: good result with fluoxetine 30 mg, I will take over Rx from Dr. Lester at [place]. 07/19/2020 (age 14yr 7mo): Mom plans to make appt with Derm. [facility]. 03/08/2020 (age 14 yr 3 mo): Has been followed by [facility], but mom would like see local dermatolgist. Referred today. Using triamcinolone/CeraVe compound inconsistently. On fluoxetine with good result. See anxiety problem for details. Assessment & Plan (08/09/2022 11:12 AM EDT): 08/09/2022 (age 16yr): Would like to try dupixent. Refer to derm, can not longer see [facility] derm. Assessment & Plan (03/22/2022 3:47 PM [...] and eczema (see prblems. Now followed by [facility] psych, Continues on fluoxetine, now at 60 mg. Plans to see Derm in [facility]. Assessment & Plan (12/20/2020 9:21 PM EST): 12/20/2020 (age 15yr 0mo): . Mom called [facility] to get back to previous psychiatrist, is [...] I spoke with Dr. Christa Lester at [place]. She has currently met all the goals [...] Fluoxetine 10/31/2019 Sees provider (Dr. Lester) at [facility]. On Adderal 30 and fluoxetine 20 mg. 11/2019: Fluoxetine increased from 20 mg to 30 mg. 03/08/2020: Adderal XR decreased from 30 mg to 20 mg. Clonidine discontinued. 03/16/2020: Discharged from [place] due to not needing therapy for anxiety. I will take over prescribing ADHD medication. can come back to [place] and Dr. Lester at [place] if she runs in to issues. 08/17/2020 (age 14yr 8mo): La is not doing well, mostly related to anxiety/depression. Mom plans to transfer care to [facility] psychiatry where she has been seen before. She cannot go back to [place] according to mom. 12/20/2020 (age 15yr 0mo): Doing well on Addreall xr 20 mg. [facility] treatment of ADHD, anxiety, depresion, [...] 08/09/2022 (age 16yr): Missed an appt at [facility] and her therapist is also moving to [place]. She may need to go back on the waiting list. Has been continuing with [facility] psych for now. Will be changing meds. - Last Specialist Visit: 06/20/2022: [facility] initial evaluation, plan for 12 individual and family therapy sessions. Work on calming strategies, aerobic exercise, and habit reversal skills. - will ask [facility] to contact mom with walk in clinic information. Assessment & Plan (03/22/2022 3:46 PM EST): 03/22/2022 (age 16yr): Had a psychiatrist but was unable to keep seem them after the age of 16. Needs a new psychiatrist. Gave psych list. Assessment & Plan (08/08/2021 12:12 PM EDT): 08/07/2021 (age 15yr 8mo): Now followed by [facility] psych, on vyvanse started 04/20/2021. Assessment & Plan (02/17/2021 12:39 PM EST): 02/17/2021 (age 15yr 2mo): Failed school, having trouble concentrating, mom thinks the dose needs to be increased. However she picks her skin when she has a higher dose of adderall. [facility] will not be able to see her as mom had hoped. Would like a referral to bridge program ([facility]) Assessment & Plan (12/20/2020 9:21 PM EST): 12/20/2020 (age 15yr 0mo): Doing well on addrerall 20 mg. Clonidine discontinued. May need 30 mg dosage for in person school in the future. . Mom called [facility] to get back to previous psychiatrist, is [...] school. Mom plans to transfer care to [facility], where she has been seen before. We may need another follow up depending on whether and when mom gets the appointment with [facility]. Mom states she has the number and [...] and skin picking. Clonidine discontinued. Discharged from [place] due to not needing therapy for anxiety, I will take over psych med prescriptions. According to [place], La has been stable on Adderal xr. Stable on adderall XR 20 mg for now. Gets increased skin picking on 30 mg but may need increased dosage for in person school, which is longer than the current [employer] school schedule. Has dysregulated emotions off meds. Continue adderall xr 20 mg for now, follow up in 3 months Assessment & Plan (04/04/2020 9:35 AM EST): 03/16/2020: I spoke with Dr. Christa Lester, treating psychiatrist at [facility]. Fluoxetine was started 11/2018, increased to [...] back to [place] and Dr. Lester at [place] if she runs in to issues. She [...] to stop clonidine. Still getting therapy at [place] currently. Allergy 11/06/2013 Overview (05/26/2024): 11/01/2023 (age 17 y.o.): Sees pig machine operator - Last Specialist Visit: 05/22/2024 [facility]. Allergic [...] positive to Cashews only. Subsequent testing at [facility] was positive to cats, dogs, pollens.Would like to see local pig machine operator for asthma allergy care. Would like to start allergy shots. La has a dog at home and is exposed to cats. Referred today. 05/18/2020 (age 14yr 5mo): Appointment with [facility] coming up on 05/21/2020. 07/14/2020 Hand Flesher visit, La is on zyrtec and is allergic to tree nuts except for almonds. Plan was follow up for allergy testing. . Assessment & Plan (11/01/2023 1:31 PM EDT): 11/01/2023 (age 17 y.o.): Sees pig machine operator Assessment & Plan (08/09/2022 11:52 AM EDT): 08/09/2022 (age 16yr): Has appt at [facility] to discuss allergy shots today. Assessment & Plan (08/08/2021 12:14 PM EDT): 08/08/2021 (age 15yr 8mo): Per mom started allergy shots, following with pig machine operator. Assessment & Plan (07/19/2020 5:21 PM EDT): 07/19/2020 (age 14yr 7mo): Saw pig machine operator, 'allergic to everything'. Still taking claritin, flonase. May start allergy shots. Assessment & Plan (03/08/2020 2:38 PM EST): 03/08/2020 (age 14 yr 3 mo): Here for asthma f/u. Had mild flair due to running out of asthma meds. Would like to see local pig machine operator for asthma allergy care. Would like to start allergy shots. La has a dog at home and is exposed to cats. Assessment & Plan (10/31/2019 5:03 PM EDT): 10/31/2019 (age 13 yr 11 mo): wheezing a little bit lately. Using air duo and singular. Due for follow up with providers at [facility]. 05/23/2019 La will plan to get eval [...] She was not able to see the pig machine operator at [facility]. We will address whether this is necessary when covid 19 pandemic has subsided. Mild persistent asthma 09/19/2013 Overview (05/26/2024): 10/31/2023 (age 17 y.o.): Albuterol PRN only - ACT score shows well controlled asthma (20-25) - AAP plan done and reviewed - School medication note provided - Albuterol 2 puffs every 4 hours - Medications Albuterol inhaler refilled - sees pig machine operator - Last Specialist Visit: 05/22/2024 [facility]. Allergic reaction, asthma with exacerbation, allergic rhintis. Already as allergy to sesame seed, pecan, pistachio. Cahsew, walnut. Immunocap for tree nut a sesame. Start advair, continue dupixent and TAC, recommned allergy shots. Follow up 3 months asthma recheck History: 10/31/2019 (age 13 yr 11 mo): On Airduo an singulair. Was followed by [facility] as [facility]. Would like to see local pig machine operator for asthma allergy care. Referred today. 05/18/2020 (age 14yr 5mo): Appointment with [facility] coming up on 05/21/2020. Continue current meds for now. 07/14/2020: Saw pig machine operator [facility] recently. Mom reported that they sent albuterol, continuted flovent, airduo. Hand Flesher notes report that La is on QVAR 80 to P BID with good effect. Immunotherapy recommended and return for oral challenge to amoxicilin recommended. 08/08/2021 (age 15yr 8mo): Per mom started allergy shots, following with pig machine operator. Still taking QVAR Rx'd by pig machine operator. Assessment & Plan (11/01/2023 1:30 PM EDT): 10/31/2023 (age 17 y.o.): Albuterol PRN only - ACT score shows well controlled asthma (20-25) - AAP plan done and reviewed - School medication note provided - Albuterol 2 puffs every 4 hours - Medications Albuterol inhaler refilled - sees pig machine operator Assessment & Plan (08/09/2022 11:48 AM EDT): 08/09/2022 (age 16yr): Has appt at [facility] to discuss allergy shots today. Not taking QVAR Rx'd by pig machine operator, will discuss this today. Assessment & Plan (08/08/2021 12:13 PM EDT): 08/08/2021 (age 15yr 8mo): Per mom started allergy shots, following with pig machine operator. Still taking QVAR Rx'd by pig machine operator. Assessment & Plan (07/19/2020 4:30 PM EDT): 07/19/2020 (age 14yr 7mo): saw pig machine operator recently. Sent albuterol, continuted flovent, airduo. Assessment [...] asthma meds. Would like to see local pig machine operator for asthma allergy care. Has airduo refilled by our office at [facility] last visit on 02/09/2020. She is taking it every day and is feeling better. ACT shows moderate control (20), Assessment & Plan (02/09/2020 4:30 PM EST): Mild flare today Advised to use albuterol q4h prn- did not use at all today so far Refilled 1 AirDuo inhaler pending FU w/ PCP Did not go for FU w/ [facility] pig machine operator Mom wants to see pig machine operator locally- will return for asthma check and discuss allergy care w/ PCP Assessment & Plan (10/31/2019 5:00 PM EDT): 10/31/2019 (age 13 yr 11 mo): wheezing a little bit lately. Using air duo and singular. Due for follow up with providers at [facility]. History: 10/28/18 - Taking AirDuo and singulair as preventatives and is taking them consistently. Doing well. She is followed by Allergy at [facility]. Has generally required oral steroid about 1-2 times per year. 04/11/2019 poor control and confusion about meds. Discussed and will continue with air duo, singulair. Follow up in 6 weeks. Needs to reschedule allergy visit at [facility]. 05/23/2019 Doing great, using air duo intermittently. [...] ACT. Needs to reschedule allergy visit at [facility]. Assessment & Plan (04/04/2019 4:12 PM EST): Exacerbation requring steroids today. Use albuterol every 4 hours. Follow up 1 week. Developmental academic disorder 08/21/2013 Overview (08/09/2022): 08/09/2022 (age 16yr): Passed the year, has IEP. ADHD being treated by [facility] psych. Detailed History and Chronology of care: [...] year, has IEP. ADHD being treated by [facility] psych. Assessment & Plan (08/08/2021 12:34 PM EDT): 08/08/2021 (age 15yr 8mo): Passed the year, variable grades. Has IEP. ADHD now being treated by [facility] psych. Assessment & Plan (07/19/2020 5:22 PM [...] Due for follow up with providers at [facility]. Would like to see local communications electrician supervisor and pig machine operator, referred today. Using fluff inconsistently. 05/18/2020 (age 14yr 5mo): Appointment with [facility] coming up on 05/21/2020. 07/14/2020 Hand Flesher visit reports that La is on cerave cream and triamcinolone cream. No follow up notes since that time. Assessment & Plan (10/31/2023 2:05 PM EDT): 10/31/2023 (age 17 y.o.): On dupixent through derm Assessment & Plan (08/09/2022 11:11 AM EDT): 08/09/2022 (age 16yr): Would like to try dupixent. Refer to derm, can not longer see [facility] derm. Assessment & Plan (08/08/2021 12:15 PM EDT): 08/08/2021 (age 15yr 8mo): Not seeing dermatology. Mom is thinking of seeing an pig machine operator in [place]. Assessment & Plan (07/19/2020 5:22 PM EDT): 07/19/2020 (age 14yr 7mo): Plans to follow up with Derm at [facility]. Assessment & Plan (03/08/2020 7:59 PM EST): 03/08/2020 (age 14 yr 3 mo): Here for asthma f/u. Had mild flair due to running out of asthma meds. Would like to see local pig machine operator for asthma allergy care. May need local communications electrician supervisor to help with eczema. Using baby fluff wth triamcinolone 0.1% inconsistently. It seems to help when she uses it. Referred to Derm today. Class 2 obesity due to exces s calories without serious comorbidity in adult 03/07/2010 Overview (05/16/2024): 11/01/2023 (age 17 y.o.): Followed by [facility] weight management 03/2023 - 05/202408/20/2022 (age 16yr): Cannot be seen by endo at [facility] at all. Refer to [facility] - Last Specialist Visit: 04/10/2023 - 05/16/24 [facility] weight management, followed closely Lifestyle changes recommended. 10/16/2023 [facility] weight management. Started Phentermine 05/16/24 stopped phentermine, [...] Has elevated cholesterol according to note. 02/28/2022 [facility] weight management clinic on Trulicity with excellent effect follow-up 3 months Assessment & Plan (11/01/2023 1:32 PM EDT): 11/01/2023 (age 17 y.o.): Followed by [facility] weight management Assessment & Plan (05/18/2023 4:44 PM EDT): 05/18/2023 (age 17yr): Is being treated at [facility] weight management and was referred to PT at [facility]. They do not see pts over age 18. List of local PT providers given. Assessment & Plan (08/09/2022 11:17 AM EDT): 08/09/2022 (age 16yr): No long able to see endo at [facility] children[facility]. Refer to [facility] adult endo (electronic) - Last Specialist Visit: 02/28/2022 [facility] weight management clinic on Trulicity with [...] Type Department Care Team Description 10/17/2024 Telephone [facility] - [address] [address] Ju Arambula MD Medical Records [...] Completed 07/19/2020, 016 Procedures * Due to [place] [employer] law, this organization might not be sharing sensitive test results. Procedure Name Priority Date/Time Associated Diagnosis Comments CHLAMYDIA AND GONORRHEA, AMPLIFIED Routine 10/31/2023 3:25 PM EDT Encounter for screening examination for sexually transmitted disease from Last 3 Months or Most Recently Relevant to Health Maintenance Results * Due to [facility] law, this organization might not be sharing sensitive test results. * Chlamydia and Gonorrhoea, Amplified (Urine) (10/31/2023 3:25 PM EDT) C trach MITALI Negative Negative [facility] N gonorrhoeae MITALI Negative Negative [facility] Urine (Urine, Random (not clean void)) 10/31/2023 3:25 PM EDT 10/31/2023 Comment:UR Narrative [facility] - 11/01/2023 3:07 PM EDT Performed at: 01 - [facility] [address], [address], [place], [place] [id number] Investigative Writer: Hal Fernandez MD, Phone: [phone] us Ju Arambula MD LAB MICROBIOLOGY - GENERAL OR DERABLES Final Result [facility] [address] [place] [address] from Last 3 Months or Most Recently Relevant to Health Maintenance
[2024-12-22 16:36] LABS: Alanine Aminotransferase 14 U/L (0-31); Albumin Level 3.6 g/dL (3.5-5.0); Alkaline Phosphatase 116 U/L (39-117); Anion Gap 13 (12-20); Aspartate Amino Transferase 18 U/L (5-31); Blood Urea Nitrogen 12 mg/dL (9-16); Calcium 9.2 mg/dL (8.4-10.2); Carbon Dioxide 25 mmol/L (22-29); Chloride 107 mmol/L (96-108); Cholesterol 180 mg/dL (<200); Estimated Glomerular Filt Rate > 60; HDL Cholesterol 37 mg/dL (>40); Iron 42 mcg/dL (30-160); Percent Iron Saturation 17 % (15-50); Potassium 3.9 mmol/L (3.3-5.1); Sodium 141 mmol/L (135-145); Total Iron Binding Capacity 241 mcg/dL (228-428); Total Protein 7.2 g/dL (6.5-8.0); Triglycerides 137 mg/dL (<150); Unsaturated Iron Binding 199 ug/dL
[2024-12-22 17:03] LABS: Ferritin 58 ng/mL (10-122)
[2024-12-22 17:09] LABS: Folate 11.1 ng/mL (> or = 4.0); Vitamin B12 424 pg/mL (200-900)
[2024-12-22 17:46] LABS: Free T4 (Free Thyroxine) 0.79 ng/dL (0.71-1.85)
== END 2024-12-22 13:19 | disposition home or self-care (01) ==
LOC: HO.XRAY 13:18
PROVIDERS: PCP Nurse Practitioner Family; Visit Provider Surgery
DX: Z13.1 Encounter for screening for diabetes mellitus (principal); Z13.21 Encounter for screening for nutritional disorder; E66.01 Morbid (severe) obesity due to excess calories; E78.5 Hyperlipidemia, unspecified
CPT/HCPCS: 36415; 71046; 80053; 80061; 82306; 82607; 82728; 82746; 83036; 83525; 83540; 84425; 84439; 84443; 84590; 84630; 85025; 86140

== ENCOUNTER → 2024-12-22 13:48 | Outpatient (BNV) | payer MEDICARE, MEDICAID, SELFPAY | PROVIDERS: PCP Nurse Practitioner Family; Visit Provider Radiology Diagnostic Radiology | DX: E66.01 Morbid (severe) obesity due to excess calories (principal) | CPT/HCPCS: 71046 ==

== ENCOUNTER 2025-01-29 05:55 | Day surgery (SDC) | payer MEDICARE, MEDICAID, SELFPAY ==
--- OUTSIDE RECORDS SUMMARY | 2025-01-01 01:07 | XMS_ITS | Clinical Summary ---
Author Organization [facility] Address [address] [place] [id number] Care Team Providers Care Railroad Emergency Services Manager Name Role Phone Ju Arambula MD Primary [...] so, obtain the minor's consent prior to disclosure.[facility] Allergies Active Allergy Reactions Criticality Noted [...] to complete this topic Insurance [place] MEDICA[place] [facility] MEDICAID PART A AND B Care Teams Railroad Emergency Services Manager Relationship Specialty Start Date End Date Ju Arambula MD [address] [place] [address] KYRA ROBBINS [id number] PCP - General General Pediatrics 09/13/22
--- OUTSIDE RECORDS SUMMARY | 2025-01-01 01:07 | XMS_ITS | Encounter Summary ---
Author Organization [facility] Address [address] [place], [place] [address] Phone Care Team Providers Care Commercial Real Estate Assistant Name Role Phone Miguel Shore MD Primary Care Provider [phone] Encounter Details Date Type Department Care Team (Late st Contact Info) Description 09/24/2015 Documentation [facility] [address] [place] [address] Family Medicine, Physician [address] [place], [place] [id number] Social History Tobacco Use Types Packs/Day Years [...] on filedocumented in this encounter Care Teams Commercial Real Estate Assistant Relationship Specialty Start Date End Date Miguel Shore MD [address] [place] [address] [place] [address] PCP - General 09/22/16 01/11/19 documented as of this encounter
--- OUTSIDE RECORDS SUMMARY | 2025-01-01 01:07 | XMS_ITS | Encounter Summary ---
Author Organization [facility] Address [address] [place], [place] [id number] Phone Care Team Providers Care Sparmaker Name Role Phone Miguel Shore MD Primary Care Provider [phone] Encounter Details Date Type Department Care Team (Late st Contact Info) Description 01/01/2013 Documentation [facility] [place] [facility] [address] [place] [address] Family Medicine, Physician [address] [place], [place] [address] Social History Tobacco Use Types Packs/Day Years [...] on filedocumented in this encounter Care Teams Sparmaker Relationship Specialty Start Date End Date Miguel Shore MD [address] [place] [address] [place] [address] PCP - General 09/22/16 01/11/19 documented as of this encounter
--- OUTSIDE RECORDS SUMMARY | 2025-01-01 01:07 | XMS_ITS | Encounter Summary ---
Author Organization [facility] Address [address] [place], [place] [address] Phone Care Team Providers Care Batting Machine Operator Name Role Phone Miguel Shore MD Primary Care Provider Encounter Details Date Type Department Care Team (Late st Contact Info) Description 11/22/2012 Documentation [facility] Family Medicine [address] [place] [address] Family Medicine, Physician [address] [place], [place] [address] Social History Tobacco Use Types Packs/Day Years [...] on filedocumented in this encounter Care Teams Batting Machine Operator Relationship Specialty Start Date End Date Miguel Shore MD [address] [place] [address] [place] [address] PCP - General 09/22/16 01/11/19 documented as of this encounter
--- OUTSIDE RECORDS SUMMARY | 2025-01-01 01:07 | XMS_ITS | Continuity of Care Document ---
Author Organization [place] - [facility], [facility] Address [address] [place] [address] Care Team Providers Care Inspector Type Name Role RAS Worrell Primary Care Provider [...] based on the outcomes of the treatments. [email or web address] Not available 10/14/2024 15:25:22 Plan of Treatment Reminders Order Date Submit Date Provider Last Modified By Organization Details Last Modified Time Details Appointments PROCEDURE 15 2024 10:50A M JAROD CORRAL MD Not available Not available Not available Lab None recorded. Referral None recorded. Procedures None recorded. Surgeries None recorded. Imaging None recorded. Medication Orders mupirocin 2 % topical ointment 2024 [id number] [facility]/Pharmacy #[id number], [address] [facility], [place], [address], 10/14/2024 15:22:56 Patient TargetsNo targets recorded. Patient Instructions Encounter Date Encounter Id Patient Instructions Last Modified By Organization Details Last Modified Time 10/14/2024 [id number] Apply the prescribed nasal cream to both nostrils three times daily using a clean pinky finger with a short nail. Avoid applying the cream while driving or in public settings. Schedule the tube placement procedure at the tennis desk team member before leaving the office. [email or web address] Not available 10/14/2024 15:23:26 Please note: Parts of this encounter note have been generated by AI based on audio conversation. Patient consent was required prior to utilizing this technology. Content review was required prior to finalizing the note. [email or web address] Not available 10/14/2024 15:23:26 Reason for Referral [...] Details Recorded Time Otalgia of right ear 1991922398 Active 2020 Otalgia, right ear; Note: Date Diagnosed : 09/02/2020 1:11 PM (H92.01) Not Available [facility] 4 03:16:14 Bilateral disorder of Eustachia n tubes 72528937029 67459 Active 2020 Other specified disorders of Eustachia n tube, bilateral ; Note: Date Diagnosed : 01/12/2021 4:35 PM (H69.83) Not Available [facility] 4 03:16:14 Hypertrop hy of nasal turbinate s 84608341 Active 2022 Hypertrop hy of nasal turbinate s; Note: Date Diagnosed : 3 4:12 PM (J34.3) Not Available [facility] 4 03:16:14 Allergic rhinitis 15073986 Active 2022 Other allergic rhinitis; Note: Date Diagnosed : 3 4:12 PM (J30.89) Not Available [facility] 4 03:16:14 Conductiv e hearing loss 56820042 Active 2022 Conductiv e hearing loss, unilatera l, right ear, with unrestric olivia hearing on the contralat eral side; Note: Date Diagnosed : 3 5:07 PM (H90.11) Not Available [facility] 4 03:16:15 Atrophic flaccid right tympanic membrane 13979556251 30644 Active 2022 Atrophic flaccid tympanic membrane, right ear; Note: Date Diagnosed : 3 5:07 PM (H73.811) Not Available [facility] 4 03:16:14 Patulous right Eustachia n tube 81233970485 18332 Active 2022 Patulous Eustachia n tube, right ear; Note: Date Diagnosed : 3 5:03 PM (H69.01) Not Available [facility] 4 03:16:15 Nasal vestibuli tis 62592645 Active 2024 JAROD CORRAL MD [address] [address], [place], [address] , [facility] 5 15:22:06 Problem Notes None recorded. Procedures Surgical History Date Name Laterality Status Provider Name and Address Organization Details Recorded Time 10/30/2024 Air & Speech Audio with Tymps - 33912, 07406 & 97438 completed ANT PATTERSON MA, [facility] [address] [place] [address], [place], [address], [facility] - [facility] 10/30/2024 09:57:13 10/14/2024 Air & Speech Audio with Tymps - 78310, 39023 & 29036 completed ANT PATTERSON MA, CCC-A [address] [place] [address],[place] [address], [address], [facility] - [facility] 10/14/2024 14:47:03 Imaging Results None recorded. Procedure Notes None recorded. Medical Equipment None Reported. Allergies Allergen ID Allergen Name Allergen Category Reaction Reaction Severity Criticality Documentation Date Start Date Code Code System Note Provider Name and Address Organization Details Recorded Time 822353 chocolate flavor food,medi cation other Not available Not available 06/26/2023 React ion: other react ion, Unkno wn; Not Available [facility] 4 01:15:54 462687 cat dander environme nt other Not available Not available 06/26/2023 React ion: other react ion, Unkno wn; Not Available [facility] 4 01:15:55 669901 nut - unspecifi ed food other Not available Not available 06/26/2023 React ion: other react ion, Unkno wn; Not Available [facility] 4 01:15:56 Medications Name Sig Start [...] xtended release 12/06 completed Medicati on ID: [id number] B rand Name: Adderall XR Send Method: [...] as directed 10/14 completed Medicati on ID: [id number] D uration Value: 30 Brand Name: azdeesti [...] a day 10/14 completed Medicati on ID: [id number] D uration Value: 30 Brand Name: fluticas [...] extended release 10/14 completed Medicati on ID: [id number] B rand Name: bupropio n HCl Send [...] mg capsule 10/14 completed Medicati on ID: [id number] B rand Name: Vyvanse Send Method: E-Prescr ibed Sub s Allowed: subs OK Medic ationGen ericName : Vyvanse Not Available Not Available Not Available Zepbound 2.5 mg/0.5 mL subcutane ous pen injector INJECT 2.5 MG SUBCUTAN EOUSLY EVERY WEEK FOR 4 WEEKS active Not Available Not Available No t Available Vitals None Recorded Social History None [...] ICD10 Code Diagnosis IMO Codes Diagnosis Note [id number] JAROD CORRAL MD [facility] [address] [address] 10/14/2024 14:13:27 10/14/2024 15:24:06 Atrophic flaccid right tympanic membrane [id number] 270829 H73.811 Patulous r ight Eustachian tube 9904774154 339003 H69.01 Nasal vestibulitis 14644 000 J34.89 506453 [id number] ANT PATTERSON MA, CCC-A [facility] [address] [address] 10/14/2024 14:15:34 10/14/2024 14:45:56 Atrophic flaccid right tympanic membrane 9180040845 310680 H73.811 Audiologic al evaluation results: Right ear: [...] Member ID Guarantor Name 10/14/2024 2 [place] [facility] [place] [id number] [place] 10/14/2024 1 MEDICARE B-[place]: [facility] [place] [id number] [place] Notes Date Note Type Note Provider Name and Address Organization Details Recorded Time 10/14/2024 text/html Longstanding ANT PATTERSON MA, CCC-A [address] [facility],[place] [address], [place], [address], [facility] - [facility] 11/27/2024 16:53:22 10/14/2024 text/html 18-year-old female with longstanding history of allergy. I evaluated her back in January 2023 at which point patient was clearly demonstrating signs of patulous eustachian tube on the right. Nasopharyngoscopy negative. I discussed the use of OTC compound Patulend versus consultation with Dr. Mike Mendoza at [facility] versus consideration of placement of tympanostomy tube in the office. This was never carried out. Additionally, she reports a painful bump inside her left nostril, which has been present for a few days and was initially thought to be a pimple. She notes similar symptoms previously on the opposite nostril. JAROD CORRAL MD [address] [facility],[place] [address], [place], [address], [facility] - [facility] 10/14/2024 15:25:36 OBGyn Episode No OBEpisode recorded.
--- OUTSIDE RECORDS SUMMARY | 2025-01-01 01:07 | XMS_ITS | Encounter Summary ---
Author Organization [facility] Address [address] [place] [address] Phone Care Team Providers Care Stacker Driver Name Role Phone Unavailable Primary Care Provider Unavailabl e Reason for Visit * Reason Comments Med Refill Encounter Details Date Type Department Care Team (Late st Contact Info) Description 07/04/2020 Refill [facility] [address] [place] [address] Andressa Bains, [address] [place], [place] [phone] Moderate persistent asthma with acute exacerbation Social [...] message left on unidentified a/m to call [facility] proair refill 07/03/20 documented in this encounter Plan of Treatment Not on file documented as of this encounter Visit Diagnoses Diagnosis Moderate persistent asthma with acute exacerbation documented in this encounter
--- OUTSIDE RECORDS SUMMARY | 2025-01-01 01:07 | XMS_ITS | Encounter Summary ---
Author Organization [facility] Address [address] [place], [place] [address] Phone Care Team Providers Care Zinc Miner Name Role Phone Miguel Shore MD Primary Care Provider Encounter Details Date Type Department Care Team (Late st Contact Info) Description 10/27/2013 Documentation [facility] [place] Family Medicine [address] [place] [address] Family Medicine, Physician [address] [place], [place] [address] Social History Tobacco Use Types Packs/Day Years [...] on filedocumented in this encounter Care Teams Zinc Miner Relationship Specialty Start Date End Date Miguel Shore MD [address] [place] [address] [place] [address] PCP - General 09/22/16 01/11/19 documented as of this encounter
--- OUTSIDE RECORDS SUMMARY | 2025-01-01 01:07 | XMS_ITS | Continuity of Care Document ---
Author Organization [place] - [facility], [facility] Address [address] [place] [address] Care Team Providers Care Solar Installation Crew Supervisor Name Role Phone RAS CARRANZA Primary Care [...] Details Recorded Time Otalgia of right ear 9731513533 Active 2020 Otalgia, right ear; Note: Date Diagnosed : 09/02/2020 1:11 PM (H92.01) Not Available [facility] 4 03:16:14 Bilateral disorder of Eustachia n tubes 95888226187 90366 Active 2020 Other specified disorders of Eustachia n tube, bilateral ; Note: Date Diagnosed : 01/12/2021 4:35 PM (H69.83) Not Available [facility] 4 03:16:14 Hypertrop hy of nasal turbinate s 25426373 Active 2022 Hypertrop hy of nasal turbinate s; Note: Date Diagnosed : 3 4:12 PM (J34.3) Not Available [facility] 4 03:16:14 Allergic rhinitis 61453892 Active 2022 Other allergic rhinitis; Note: Date Diagnosed : 3 4:12 PM (J30.89) Not Available [facility] 4 03:16:14 Conductiv e hearing loss 06961324 Active 2022 Conductiv e hearing loss, unilatera l, right ear, with unrestric olivia hearing on the contralat eral side; Note: Date Diagnosed : 3 5:07 PM (H90.11) Not Available [facility] 4 03:16:15 Atrophic flaccid right tympanic membrane 49280250088 89939 Active 2022 Atrophic flaccid tympanic membrane, right ear; Note: Date Diagnosed : 3 5:07 PM (H73.811) Not Available [facility] 4 03:16:14 Patulous right Eustachia n tube 32674276468 95299 Active 2022 Patulous Eustachia n tube, right ear; Note: Date Diagnosed : 3 5:03 PM (H69.01) Not Available [facility] 4 03:16:15 Nasal vestibuli tis 07486789 Active 2024 JAROD CORRAL MD [address] [place] [address], [place], [address] , [facility] - [facility] 5 15:22:06 Problem Notes None recorded. Procedures Surgical History Date Name Laterality Status Provider Name and Address Organization Details Recorded Time 10/30/2024 Air & Speech Audio with Tymps - 51447, 90434 & 47557 completed ANT PATTERSON MA, CCC-A [address] [facility],[place] [address], [place], [address], [place] - [facility] 10/30/2024 09:57:13 10/14/2024 Air & Speech Audio with Tymps - 70116, 97981 & 04017 completed ANT PATTERSON MA, [facility] [address] [place] [address],[place] [address], [place], [address], [place] - [facility] 10/14/2024 14:47:03 Imaging Results None recorded. Procedure Notes None recorded. Medical Equipment None Reported. Allergies Allergen ID Allergen Name Allergen Category Reaction Reaction Severity Criticality Documentation Date Start Date Code Code System Note Provider Name and Address Organization Details Recorded Time 839886 chocolate flavor food,medi cation other Not available Not available 06/26/2023 React ion: other react ion, Unkno wn; Not Available [facility] 4 01:15:54 031581 cat dander environme nt other Not available Not available 06/26/2023 React ion: other react ion, Unkno wn; Not Available [facility] 4 01:15:55 986301 nut - unspecifi ed food other Not available Not available 06/26/2023 React ion: other react ion, Unkno wn; Not Available [facility] 4 01:15:56 Medications Name Sig Start [...] xtended release 12/06 completed Medicati on ID: [id number] B rand Name: Adderall XR Send Method: [...] as directed 10/14 completed Medicati on ID: [id number] D uration Value: 30 Brand Name: azelasti [...] a day 10/14 completed Medicati on ID: [id number] D uration Value: 30 Brand Name: fluticas [...] extended release 10/14 completed Medicati on ID: [id number] B rand Name: bupropio n HCl Send [...] mg capsule 10/14 completed Medicati on ID: [id number] B rand Name: Manny Send Method: E-Prescr ibed Sub s Allowed: subs OK Medic ationGen ericName : Manny Not Available Not Available Not Available Zepbound [...] ICD10 Code Diagnosis IMO Codes Diagnosis Note [id number] JAROD CORRAL MD [facility] [address] [address] 10/14/2024 14:13:27 10/14/2024 15:24:06 Atrophic flaccid right tympanic membrane [id number] 144443 H73.811 Patulous r ight Eustachian tube 8351057261 447987 H69.01 Nasal vestibulitis 97990 000 J34.89 444695 [id number] ANT PATTERSON MA, CCC-A [facility] [address] [address] 10/14/2024 14:15:34 10/14/2024 14:45:56 Atrophic flaccid right tympanic membrane 3500060881 222894 H73.811 Audiologic al evaluation results: Right ear: [...] Member ID Guarantor Name 10/14/2024 2 [place] [facility] [place] [id number] [place] 10/14/2024 1 [place] B-[place]: [facility] [place] [id number] [place] Notes Date Note Type Note Provider Name and Address Organization Details Recorded Time 10/14/2024 text/html Longstanding ANT PATTERSON MA, [facility] [address] [place] [address],[address], [address], [facility] - [facility] 11/27/2024 16:53:22 10/14/2024 text/html 18-year-old female with longstanding history of allergy. I evaluated her back in January 2023 at which point patient was clearly demonstrating signs of patulous eustachian tube on the right. Nasopharyngoscopy negative. I discussed the use of OTC compound Patulend versus consultation with Dr. Mike Mendoza at [facility] versus consideration of placement of tympanostomy tube in the office. This was never carried out. Additionally, she reports a painful bump inside her left nostril, which has been present for a few days and was initially thought to be a pimple. She notes similar symptoms previously on the opposite nostril. JAROD CORRAL MD [address] [place] [address],[address], [address], [facility] - [facility] 10/14/2024 15:25:36 10/30/2024 text/html Hx middle ear dysfunction ANT PATTERSON MA, [facility] [address] [facility],[place] [address], [place], [address], [facility] - [facility] 10/30/2024 09:59:14 OBGyn Episode No OBEpisode recorded.
--- OUTSIDE RECORDS SUMMARY | 2025-01-01 01:07 | XMS_ITS | Clinical Summary ---
Author Organization [facility] Address [address] [place] [address] Phone Care Team Providers Care Oracle Pl Sql Developer Name Role Phone Ju Arambula MD Unavailable [phone] Miguel Shore MD Primary Care Provider [phone] Miguel Shore MD Unavailable [phone] Medications * This document contains information received from the source organization and may not represent a complete record from that organization. buPROPion XL (Wellbutrin XL) 300 mg 24 hr tablet Dose: 300 mg, Dose Amount: 1 tab, PO, Q24hr, Dispense Quantity: 30 tab, Refills: 1, Entered: 09/11/22 12:25:00 EDT, [facility]/pharmacy #[id number] 3 Active cetirizine (ZyrTEC) 10 mg tablet Dose: 10 mg, Dose Amount: 1 tab, PO, daily, Dispense Quantity: 90 tab, Refills: 3, Entered: 06/28/18 11:35:41 EDT, [facility] 89196 9 Active clindamycin (Cleocin-T) 1 % lotion Dose Amount: 1 appl, TOP, BID, Special Instructions: apply to affected bumps in armpits and groin and to legs after shaving, Dispense Quantity: 60 mL, Refills: 6, Entered: 01/31/18 13:06:[facility] [address] 8 Active dulaglutide (Trulicity) 0.75 mg/0.5 mL [...] EA, Refills: 3, Entered: 11/06/18 9:27:00 EDT, [facility]59 9 Active ketoconazole (NIZOral) 2 % shampoo Dose Amount: 1 appl, TOP, As Directed, Special Instructions: lather onto scalp, leave on for 5 min and rinse off 2x/week, Dispense Quantity: 120 mL, Refills: 6, Entered: 01/31/18 13:13:26 EST, [facility] 23852 8 Active ketotifen (Zaditor) 0.025 % (0.035 %) ophthalmic solution Dose Amount: 1 drop, Eye Both, BID, Dispense Quantity: 7 mL, Refills: 3, Entered: 06/28/18 11:39:44 EDT, [facility] 53230 9 Active lisdexamfetamin e (Vyvanse) 40 mg capsule Dose: 40 mg, Dose Amount: 1 cap, PO, DailyMorning, Dispense Quantity: 60 cap, Refills: 0, Entered: 08/28/22 16:19:00 EDT, [facility]/pharmacy #[id number] 3 Active montelukast (Singulair) 10 mg tablet Dose: 10 mg, Dose Amount: 1 tab, PO, daily, Dispense Quantity: 90 tab, Refills: 3, Entered: 06/28/18 11:38:58 EDT, [facility] 17703 9 Active Social History Tobacco Use Types [...] of Treatment Not on file Care Teams Oracle Pl Sql Developer Relationship Specialty Start Date End Date Ralf, Ju Cueto MD [address] [place], [place] [id number] PCP - Insurance PCP 08/18/22 Miguel Shore MD [address] [place] [address] PCP - General 12/22/08 Miguel Shore MD [address] [place] [address] PCP - Clinical PCP 06/15/10
--- OUTSIDE RECORDS SUMMARY | 2025-01-01 01:07 | XMS_ITS | Encounter Summary ---
Author Organization [facility] Address [address] [place], [place] [address] Phone Care Team Providers Care Director Of Coding Name Role Phone Miguel Shore MD Primary Care Provider [phone] Encounter Details Date Type Department Care Team (Late st Contact Info) Description 11/19/2012 Documentation [facility] Family Medicine [address] [place] [address] Family Medicine, Physician [address] [place], [place] [address] Social History Tobacco Use Types Packs/Day Years [...] on filedocumented in this encounter Care Teams Director Of Coding Relationship Specialty Start Date End Date Miguel Shore MD [address] [place] [address] [place] [address] PCP - General 09/22/16 01/11/19 documented as of this encounter
--- OUTSIDE RECORDS SUMMARY | 2025-01-01 01:07 | XMS_ITS | Continuity of Care Document ---
Author Organization [place] - [facility], [facility] Address [address] [place] [address] Care Team Providers Care Credit Card Associate Name Role Phone RAS CARRANZA Primary Care [...] Details Recorded Time Otalgia of right ear [id number] Active 2020 Otalgia, right ear; Note: Date Diagnosed : 09/02/2020 1:11 PM (H92.01) Not Available [facility] 4 03:16:14 Bilateral disorder of Eustachia n tubes [id number] 66141 Active 2020 Other specified disorders of Eustachia n tube, bilateral ; Note: Date Diagnosed : 01/12/2021 4:35 PM (H69.83) Not Available [facility] 4 03:16:14 Hypertrop hy of nasal turbinate s 22383873 Active 2022 Hypertrop hy of nasal turbinate s; Note: Date Diagnosed : 3 4:12 PM (J34.3) Not Available [facility] 4 03:16:14 Allergic rhinitis 80303560 Active 2022 Other allergic rhinitis; Note: Date Diagnosed : 3 4:12 PM (J30.89) Not Available [facility] 4 03:16:14 Conductiv e hearing loss 50076376 Active 2022 Conductiv e hearing loss, unilatera l, right ear, with unrestric olivia hearing on the contralat eral side; Note: Date Diagnosed : 3 5:07 PM (H90.11) Not Available [facility] 4 03:16:15 Atrophic flaccid right tympanic membrane 95694655448 52565 Active 2022 Atrophic flaccid tympanic membrane, right ear; Note: Date Diagnosed : 3 5:07 PM (H73.811) Not Available [facility] 4 03:16:14 Patulous right Eustachia n tube 48243515844 25800 Active 2022 Patulous Eustachia n tube, right ear; Note: Date Diagnosed : 3 5:03 PM (H69.01) Not Available [facility] 4 03:16:15 Nasal vestibuli tis 25261412 Active 2024 JAROD CORRAL MD [address] [place] [address], [place], [address] , [facility] - [facility] 5 15:22:06 Problem Notes None recorded. Procedures Surgical History Date Name Laterality Status Provider Name and Address Organization Details Recorded Time 10/30/2024 Air & Speech Audio with Tymps - 00387, 21336 & 15169 completed ANT PATTERSON MA, CCC-A [address] [facility],[place] [address], [place], [address], [place] - [facility] 10/30/2024 09:57:13 10/14/2024 Air & Speech Audio with Tymps - 46585, 10064 & 01287 completed ANT PATTERSON [place], [facility] [address] [place] [address],[place] [address], [place], [address], [place] - [facility] 10/14/2024 14:47:03 Imaging Results None recorded. Procedure Notes None recorded. Medical Equipment None Reported. Allergies Allergen ID Allergen Name Allergen Category Reaction Reaction Severity Criticality Documentation Date Start Date Code Code System Note Provider Name and Address Organization Details Recorded Time 603254 chocolate flavor food,medi cation other Not available Not available 06/26/2023 React ion: other react ion, Unkno wn; Not Available [facility] 4 01:15:54 211963 cat dander environme nt other Not available Not available 06/26/2023 React ion: other react ion, Unkno wn; Not Available [facility] 4 01:15:55 489901 nut - unspecifi ed food other Not available Not available 06/26/2023 React ion: other react ion, Unkno wn; Not Available [facility] 4 01:15:56 Medications Name Sig Start Date [...] xtended release 12/06 completed Medicati on ID: [id number] B rand Name: Adderall XR Send Method: [...] as directed 10/14 completed Medicati on ID: [id number] D uration Value: 30 Brand Name: azelasti [...] a day 10/14 completed Medicati on ID: [id number] D uration Value: 30 Brand Name: fluticas [...] extended release 10/14 completed Medicati on ID: [id number] B rand Name: bupropio n HCl Send [...] mg capsule 10/14 completed Medicati on ID: [id number] B joseph Name: Manny Send Method: E-Prescr ibed Sub [...] ICD10 Code Diagnosis IMO Codes Diagnosis Note [id number] JAROD CORRAL MD [facility] [address] [address] 10/14/2024 14:13:27 10/14/2024 15:24:06 Atrophic flaccid right tympanic membrane [id number] 568790 H73.811 Patulous r ight Eustachian tube 6921013695 598697 H69.01 Nasal vestibulitis 05161 000 J34.89 304318 10316 ANT PATTERSON MA, CCC-A [facility] [address] [address] 10/14/2024 14:15:34 10/14/2024 14:45:56 Atrophic flaccid right tympanic membrane [id number] 003442 H73.811 Audiologic al evaluation results: Right ear: Normal hearing with excellent word recognitio n. Left ear: Normal hearing with excellent word recognitio n. Tympanomet ry: Right Ear:Type Ad ( 2.3) Left Ear:Type Ad ( 3.1) 24590 ANT PATTERSON MA, CCC-A [facility] [address] [address] 10/30/2024 09:56:04 10/30/2024 11:42:58 Otalgia of right ear 6285161768 H92.01 Audiologic al evaluation results: Right ear: [...] Member ID Guarantor Name 10/30/2024 2 [place] [facility] [place] [id number] [place] 10/30/2024 1 [place]ICARE B-[place]: [employer] [place] [id number] [place] Notes Date Note Type Note Provider Name and Address Organization Details Recorded Time 10/30/2024 text/html Hx middle ear dysfunction ANT PATTERSON [place], [facility] [address] [place] [address], [id number] - [facility] 10/30/2024 09:59:14 OBGyn Episode No OBEpisode recorded.
--- OUTSIDE RECORDS SUMMARY | 2025-01-01 01:07 | XMS_ITS | Encounter Summary ---
Author Organization [facility] Address [address] [place] [phone] Phone Care Team Providers Care Coal Pipeline Operator Name Role Phone Miguel Shore MD Primary Care Provider [phone] Encounter Details Date Type Department Care Team (Late st Contact Info) Description 05/19/2016 Documentation [facility] [place] [facility] [address] [place] [address] Family Medicine, Physician [address] [place], [place] [id number] Social History Tobacco Use Types Packs/Day Years [...] on filedocumented in this encounter Care Teams Coal Pipeline Operator Relationship Specialty Start Date End Date Miguel Shore MD [address] [place] [address] [place] [address] PCP - General 09/22/16 01/11/19 documented as of this encounter
--- OUTSIDE RECORDS SUMMARY | 2025-01-01 01:07 | XMS_ITS | Clinical Summary ---
Author Organization [facility] Address [address] [place] [phone] Phone Care Team Providers Care Artist Manager Name Role Phone Unavailable Primary Care [...] 7 Active Respiratory Therapy Supplies (PILLOW MASK[place]CHILD[place] [facility] [place]; tubing, nebulizer and nouthpeice to [...] not, we will consider provera challenge vs ROLLWAY MAN referral. Mom not aware La's request for [...] not, we will consider provera challenge vs ROLLWAY MAN referral. Mom not aware La's request for [...] IEP. Some As/ B and D/F in surinamese/reading and writing. La does not easily accept help. Seeing psych at [facility]. Mom has had concerns about La's ability to live independantly. [facility] [place] been involved but now La has psych at [facility]. Detailed History and Chronology of care: 07/19/2020 [...] (age 15yr 8mo): Now seeing psych at [facility]. On vyvanse and fluoxetine 60 mg. 08/08/2021 (age 15yr 8mo): Still struggling with school. La did pass the year but mom reports she is not progress academically. Has IEP. Some As/ B and D/F in surinamese/reading and writing. La does not easily accept help. Seeing psych at [facility]. Assessment & Plan (08/08/2021 12:17 PM EDT): 08/08/2021 (age 15yr 8mo): Still struggling with school. La did pass the year but mom reports she is not progress academically. Has IEP. Some As/ B and D/F in surinamese/reading and writing. La does not easily accept help. Seeing psych at [facility]. Mom has had concerns about La's ability to live independantly. [facility] [place] been involved but now La has psych at [facility]. Assessment & Plan (08/17/2020 12:47 PM EDT): [...] upper extremity 12/23/2019 Overview (12/23/2019): Added by [facility] Anxiety and depression 10/31/2019 Overview (10/31/2023): 10/31/2023 (age 17 y.o.): No current meds, still has provider but hasn't seen them. Mom wants La on meds. Has walk in clinic number - Last Specialist Visit: 06/20/2022 -09/23/22 : [facility] plan for 12 individual and family therapy sessions. Work on calming strategies, aerobic exercise, and habit reversal skills. On wellbutrin 11/22/2022 (age 16yr): Asking for med refill for wellbutrin. Gave number for [facility] walk in clinic. On waiting list for psych through [facility]. History 11/2018: Started Fluoxetine 10/31/2019 Sees provider (Dr. Lester) at [facility]. On Adderal 30 and fluoxetine 20 mg. 11/2019: Fluoxetine increased from 20 mg to 30 mg. 03/08/2020: Adderal XR decreased from 30 mg to 20 mg. Clonidine discontinued. 03/16/2020: Discharged from [facility] due to not needing therapy for anxiety. I will take over prescribing fluoxetine. La can come back to [place] (therapist) and Dr. Lester at [facility] if she runs in to issues. 07/05/2020 (age 14yr 7mo): Increase fluoxetine from 30 mg to 40 mg for increased sleeping and increased self isolation. In PHQ9 and TANYA 7 as well. 12/20/2020 (age 15yr 0mo) has been a little better. Socializing more, seems happier, is on waiting list for [facility].. refer to [facility] for treatment of ADHD, anxiety, depresion, [...] 08/09/2022 (age 16yr): Missed an appt at [facility] and her therapist is also moving to [place]. She may need to go back on the waiting list. Has been continuing with [facility] psych for now. Will be changing meds. - Last Specialist Visit: 06/20/2022: [facility] initial evaluation, plan for 12 individual and family therapy sessions. Work on calming strategies, aerobic exercise, and habit reversal skills. - will ask [facility] to contact mom with walk in clinic information. Assessment & Plan (03/22/2022 3:46 PM EST): 03/22/2022 (age 16yr): Had a psychiatrist but was unable to keep seem them after the age of 16. Needs a new psychiatrist. Gave psych list. Assessment & Plan (08/08/2021 12:13 PM EDT): 08/07/2021 (age 15yr 8mo): Now followed by [facility] psych, Continues on fluoxetine, now at 60 mg. On a waiting list for counselor in [place] Assessment & Plan (12/20/2020 9:18 PM EST): 12/20/2020 (age 15yr 0mo): Has been on fluoxetine since 11/2018. 07/05/2020 Increase fluoxetine from 30 mg to 40 mg for increased sleeping and increased self isolation. Today, She has been a little better. Socializing more, seems happier. Her anxiety seems better. Mom called [facility] to get back to previous psychiatrist, is on waiting list. Will refer to [facility] for treatment of ADHD, anxiety, depresion, [...] like to see her go back to [facility] to see the psychiatrist, psychiatrist, and thread clipper that she has seen in the past. We may need another follow up depending on whether and when mom gets the appointment with [facility]. Mom states she has the number and [...] back to [place] and Dr. Lester at [place] if she runs in to issues. She [...] Refer to derm, can not longer see [facility] derm (see problems). Has [facility] psych for now, Continues on fluoxetine, now at 60 mg. - Last Specialist Visit: 06/20/2022: [facility] initial evaluation, plan for 12 individual and family therapy sessions. Work on calming strategies, aerobic exercise, and habit reversal skills. History: Has been followed by [facility]'s in the past, lost to follow up 11/2018: Started fluoxetine for anxiety/skin picking 10/31/2019 Sees provider at [facility]. On Adderal 30 and fluoxetine 20 mg. 03/08/2020: Referred to edi manager and thread clipper locally. 03/16/2020: good result with fluoxetine 30 mg, I will take over Rx from Dr. Lester at [place]. 07/19/2020 (age 14yr 7mo): Mom plans to make appt with Derm. [facility]. 03/08/2020 (age 14 yr 3 mo): Has been followed by [facility], but mom would like see local dermatolgist. Referred today. Using triamcinolone/CeraVe compound inconsistently. On fluoxetine with good result. See anxiety problem for details. Assessment & Plan (08/09/2022 11:12 AM EDT): 08/09/2022 (age 16yr): Would like to try dupixent. Refer to derm, can not longer see [facility] derm. Assessment & Plan (03/22/2022 3:47 PM [...] and eczema (see prblems. Now followed by [facility] psych, Continues on fluoxetine, now at 60 mg. Plans to see Derm in [place] [facility]. Assessment & Plan (12/20/2020 9:21 PM EST): 12/20/2020 (age 15yr 0mo): . Mom called [facility] to get back to previous psychiatrist, is [...] I spoke with Dr. Christa Lester at [place]. She has currently met all the goals [...] Fluoxetine 10/31/2019 Sees provider (Dr. Lester) at [facility]. On Adderal 30 and fluoxetine 20 mg. 11/2019: Fluoxetine increased from 20 mg to 30 mg. 03/08/2020: Adderal XR decreased from 30 mg to 20 mg. Clonidine discontinued. 03/16/2020: Discharged from [place] due to not needing therapy for anxiety. I will take over prescribing ADHD medication. can come back to [place] and Dr. Lester at [place] if she runs in to issues. 08/17/2020 (age 14yr 8mo): La is not doing well, mostly related to anxiety/depression. Mom plans to transfer care to [facility]' psychiatry where she has been seen before. She cannot go back to [place] according to mom. 12/20/2020 (age 15yr 0mo): Doing well on Addreall xr 20 mg. Will refer to [facility] for treatment of ADHD, anxiety, depresion, [...] 08/09/2022 (age 16yr): Missed an appt at [facility] and her therapist is also moving to [place]. She may need to go back on the waiting list. Has been continuing with [facility] psych for now. Will be changing meds. - Last Specialist Visit: 06/20/2022: [facility] initial evaluation, plan for 12 individual and family therapy sessions. Work on calming strategies, aerobic exercise, and habit reversal skills. - will ask [facility] to contact mom with walk in clinic information. Assessment & Plan (03/22/2022 3:46 PM EST): 03/22/2022 (age 16yr): Had a psychiatrist but was unable to keep seem them after the age of 16. Needs a new psychiatrist. Gave psych list. Assessment & Plan (08/08/2021 12:12 PM EDT): 08/07/2021 (age 15yr 8mo): Now followed by [facility] psych, on vyvanse started 04/20/2021. Assessment & Plan (02/17/2021 12:39 PM EST): 02/17/2021 (age 15yr 2mo): Failed school, having trouble concentrating, mom thinks the dose needs to be increased. However she picks her skin when she has a higher dose of adderall. [facility] will not be able to see her as mom had hoped. Would like a referral to bridge program ([facility]) Assessment & Plan (12/20/2020 9:21 PM EST): 12/20/2020 (age 15yr 0mo): Doing well on addrerall 20 mg. Clonidine discontinued. May need 30 mg dosage for in person school in the future. . Mom called [facility] to get back to previous psychiatrist, is [...] school. Mom plans to transfer care to [facility], where she has been seen before. We may need another follow up depending on whether and when mom gets the appointment with [facility]. Mom states she has the number and [...] and skin picking. Clonidine discontinued. Discharged from [place] due to not needing therapy for anxiety, I will take over psych med prescriptions. According to [place], La has been stable on Adderal xr. Stable on adderall XR 20 mg for now. Gets increased skin picking on 30 mg but may need increased dosage for in person school, which is longer than the current [employer] school schedule. Has dysregulated emotions off meds. Continue adderall xr 20 mg for now, follow up in 3 months Assessment & Plan (04/04/2020 9:35 AM EST): 03/16/2020: I spoke with Dr. Christa Lester, treating psychiatrist at [facility]. Fluoxetine was started 11/2018, increased to [...] back to [place] and Dr. Lester at [place] if she runs in to issues. She [...] to stop clonidine. Still getting therapy at [place] currently. Allergy 11/06/2013 Overview (05/26/2024): 11/01/2023 (age 17 y.o.): Sees edi manager - Last Specialist Visit: 05/22/2024 SK[facility]AR. [...] positive to Cashews only. Subsequent testing at [facility] was positive to cats, dogs, pollens.Would like to see local edi manager for asthma allergy care. Would like to start allergy shots. La has a dog at home and is exposed to cats. Referred today. 05/18/2020 (age 14yr 5mo): Appointment with SKYLAR coming up on 05/21/2020. 07/14/2020 Respiratory Equipment Assistant visit, La is on zyrtec and is allergic to tree nuts except for almonds. Plan was follow up for allergy testing. . Assessment & Plan (11/01/2023 1:31 PM EDT): 11/01/2023 (age 17 y.o.): Sees edi manager Assessment & Plan (08/09/2022 11:52 AM EDT): 08/09/2022 (age 16yr): Has appt at [facility] to discuss allergy shots today. Assessment & Plan (08/08/2021 12:14 PM EDT): 08/08/2021 (age 15yr 8mo): Per mom started allergy shots, following with edi manager. Assessment & Plan (07/19/2020 5:21 PM EDT): 07/19/2020 (age 14yr 7mo): Saw edi manager, 'allergic to everything'. Still taking claritin, flonase. May start allergy shots. Assessment & Plan (03/08/2020 2:38 PM EST): 03/08/2020 (age 14 yr 3 mo): Here for asthma f/u. Had mild flair due to running out of asthma meds. Would like to see local edi manager for asthma allergy care. Would like to start allergy shots. La has a dog at home and is exposed to cats. Assessment & Plan (10/31/2019 5:03 PM EDT): 10/31/2019 (age 13 yr 11 mo): wheezing a little bit lately. Using air duo and singular. Due for follow up with providers at [facility]. 05/23/2019 La will plan to get eval [...] She was not able to see the edi manager at [facility]. We will address whether this is necessary when covid 19 pandemic has subsided. Mild persistent asthma 09/19/2013 Overview (05/26/2024): 10/31/2023 (age 17 y.o.): Albuterol PRN only - ACT score shows well controlled asthma (20-25) - AAP plan done and reviewed - School medication note provided - Albuterol 2 puffs every 4 hours - Medications Albuterol inhaler refilled - sees edi manager - Last Specialist Visit: 05/22/2024 [facility]. Allergic reaction, asthma with exacerbation, allergic rhintis. Already as allergy to sesame seed, pecan, pistachio. Cahsew, walnut. Immunocap for tree nut a sesame. Start advair, continue dupixent and TAC, recommned allergy shots. Follow up 3 months asthma recheck History: 10/31/2019 (age 13 yr 11 mo): On Airduo an singulair. Was followed by Allergy as [facility]. Would like to see local edi manager for asthma allergy care. Referred today. 05/18/2020 (age 14yr 5mo): Appointment with SKYLAR coming up on 05/21/2020. Continue current meds for now. 07/14/2020: Saw edi manager SKYLAR recently. Mom reported that they sent albuterol, continuted flovent, airduo. Respiratory Equipment Assistant notes report that La is on QVAR 80 to P BID with good effect. Immunotherapy recommended and return for oral challenge to amoxicilin recommended. 08/08/2021 (age 15yr 8mo): Per mom started allergy shots, following with edi manager. Still taking QVAR Rx'd by edi manager. Assessment & Plan (11/01/2023 1:30 PM EDT): 10/31/2023 (age 17 y.o.): Albuterol PRN only - ACT score shows well controlled asthma (20-25) - AAP plan done and reviewed - School medication note provided - Albuterol 2 puffs every 4 hours - Medications Albuterol inhaler refilled - sees edi manager Assessment & Plan (08/09/2022 11:48 AM EDT): 08/09/2022 (age 16yr): Has appt at [facility] to discuss allergy shots today. Not taking QVAR Rx'd by edi manager, will discuss this today. Assessment & Plan (08/08/2021 12:13 PM EDT): 08/08/2021 (age 15yr 8mo): Per mom started allergy shots, following with edi manager. Still taking QVAR Rx'd by edi manager. Assessment & Plan (07/19/2020 4:30 PM EDT): 07/19/2020 (age 14yr 7mo): saw edi manager recently. Sent albuterol, continuted flovent, airduo. [...] asthma meds. Would like to see local edi manager for asthma allergy care. Has airduo refilled by our office at [facility] last visit on 02/09/2020. She is taking it every day and is feeling better. ACT shows moderate control (20), Assessment & Plan (02/09/2020 4:30 PM EST): Mild flare today Advised to use albuterol q4h prn- did not use at all today so far Refilled 1 AirDuo inhaler pending FU w/ PCP Did not go for FU w/ [facility] edi manager Mom wants to see edi manager locally- will return for asthma check and discuss allergy care w/ PCP Assessment & Plan (10/31/2019 5:00 PM EDT): 10/31/2019 (age 13 yr 11 mo): wheezing a little bit lately. Using air duo and singular. Due for follow up with providers at [facility]. History: 10/28/18 - Taking AirDuo and singulair as preventatives and is taking them consistently. Doing well. She is followed by Allergy at [facility]. Has generally required oral steroid about 1-2 times per year. 04/11/2019 poor control and confusion about meds. Discussed and will continue with air duo, singulair. Follow up in 6 weeks. Needs to reschedule allergy visit at [facility]. 05/23/2019 Doing great, using air duo intermittently. [...] ACT. Needs to reschedule allergy visit at [facility]. Assessment & Plan (04/04/2019 4:12 PM EST): Exacerbation requring steroids today. Use albuterol every 4 hours. Follow up 1 week. Developmental academic disorder 08/21/2013 Overview (08/09/2022): 08/09/2022 (age 16yr): Passed the year, has IEP. ADHD being treated by [facility] psych. Detailed History and Chronology of care: [...] year, has IEP. ADHD being treated by [facility] psych. Assessment & Plan (08/08/2021 12:34 PM EDT): 08/08/2021 (age 15yr 8mo): Passed the year, variable grades. Has IEP. ADHD now being treated by [facility] psych. Assessment & Plan (07/19/2020 5:22 PM [...] Due for follow up with providers at [facility]. Would like to see local thread clipper and edi manager, referred today. Using fluff inconsistently. 05/18/2020 (age 14yr 5mo): Appointment with SKYLAR coming up on 05/21/2020. 07/14/2020 Respiratory Equipment Assistant visit reports that La is on cerave cream and triamcinolone cream. No follow up notes since that time. Assessment & Plan (10/31/2023 2:05 PM EDT): 10/31/2023 (age 17 y.o.): On dupixent through derm Assessment & Plan (08/09/2022 11:11 AM EDT): 08/09/2022 (age 16yr): Would like to try dupixent. Refer to derm, can not longer see [facility] derm. Assessment & Plan (08/08/2021 12:15 PM EDT): 08/08/2021 (age 15yr 8mo): Not seeing dermatology. Mom is thinking of seeing an edi manager in [place]. Assessment & Plan (07/19/2020 5:22 PM EDT): 07/19/2020 (age 14yr 7mo): Plans to follow up with Derm at [facility]. Assessment & Plan (03/08/2020 7:59 PM EST): 03/08/2020 (age 14 yr 3 mo): Here for asthma f/u. Had mild flair due to running out of asthma meds. Would like to see local edi manager for asthma allergy care. May need local thread clipper to help with eczema. Using baby fluff wth triamcinolone 0.1% inconsistently. It seems to help when she uses it. Referred to Derm today. Class 2 obesity due to exces s calories without serious comorbidity in adult 03/07/2010 Overview (05/16/2024): 11/01/2023 (age 17 y.o.): Followed by [facility] weight management 03/2023 - 05/202408/20/2022 (age 16yr): Cannot be seen by endo at [facility] at all. Refer to [facility] - Last Specialist Visit: 04/10/2023 - 05/16/24 [facility] weight management, followed closely Lifestyle changes recommended. 10/16/2023 [facility] weight management. Started Phentermine 05/16/24 stopped phentermine, [...] Has elevated cholesterol according to note. 02/28/2022 [facility] weight management clinic on Trulicity with excellent effect follow-up 3 months Assessment & Plan (11/01/2023 1:32 PM EDT): 11/01/2023 (age 17 y.o.): Followed by [facility] weight management Assessment & Plan (05/18/2023 4:44 PM EDT): 05/18/2023 (age 17yr): Is being treated at [facility] weight management and was referred to PT at [facility]. They do not see pts over age 18. List of local PT providers given. Assessment & Plan (08/09/2022 11:17 AM EDT): 08/09/2022 (age 16yr): No long able to see endo at [facility] children[facility]. Refer to [facility] adult endo (electronic) - Last Specialist Visit: 02/28/2022 [facility] weight management clinic on Trulicity with excellent [...] STI testing resutls to Sidney' mother at aL's request/consent (she has no phone) - Encourage safer sex, condoms, responsible behavior - Will speak with therapist as family therapy is clearly needed. Counseling and coordination of care 10/28/2018 03/09/2022 Encounters Date Type Department Care Team Description 12/27/2024 Refill [facility] [address] [place] [address] Ju Arambula MD Irregular menses 10/17/2024 Telephone [facility] [address] [place] [address] Ju Arambula MD Medical Records from Last [...] 10/10/2018, 10/24/2017, Additional history exists COVID-19 Vaccine (1 - 2024-2 6 season) 2024 DTaP,Tdap,and Td [...] Completed 07/19/2020, 016 Procedures * Due to [place] [employer] law, this organization might not be sharing sensitive test results. Procedure Name Priority Date/Time Associated Diagnosis Comments CHLAMYDIA AND GONORRHEA, AMPLIFIED Routine 10/31/2023 3:25 PM EDT Encounter for screening examination for sexually transmitted disease from Last 3 Months or Most Recently Relevant to Health Maintenance Results * Due to [place] [employer] law, this organization might not be sharing sensitive test results. * Chlamydia and Gonorrhoea, Amplified (Urine) (10/31/2023 3:25 PM EDT) C trach MITALI Negative Negative [facility] N gonorrhoeae MITALI Negative Negative [facility] Urine (Urine, Random (not clean void)) 10/31/2023 3:25 PM EDT 10/31/2023 Comment:UR Narrative [facility] - 11/01/2023 3:07 PM EDT Performed at: - [facility] [place] [address], [address], [place], [place] [id number] Air Defense Control Officer: Hal Fernandez MD, Phone: [phone] us Ju Arambula MD LAB MICROBIOLOGY - GENERAL OR DERABLES Final Result [facility] [address] [place] [address] from Last 3 Months or Most Recently Relevant to Health Maintenance
--- OUTSIDE RECORDS SUMMARY | 2025-01-01 01:07 | XMS_ITS | Encounter Summary ---
Author Organization [facility] Address [address] [place] [phone] Phone Care Team Providers Care Funeral Home Attendant Name Role Phone Mgiuel Shore MD Primary Care Provider [phone] Encounter Details Date Type Department Care Team (Late st Contact Info) Description 03/01/2016 Documentation [facility] Family Medicine [address] [place] [address] Family Medicine, Physician [address] [place], [place] [address] Social History Tobacco Use Types Packs/Day Years [...] on filedocumented in this encounter Care Teams Funeral Home Attendant Relationship Specialty Start Date End Date Miguel Shore MD [address] [place] [address] [place] [address] PCP - General 09/22/16 01/11/19 documented as of this encounter
--- OUTSIDE RECORDS SUMMARY | 2025-01-01 01:07 | XMS_ITS | Encounter Summary ---
Author Organization [facility] Address [address] [place], [place] [id number] Phone Care Team Providers Care Grab Setter Name Role Phone Miguel Shore MD Primary Care Provider [phone] Encounter Details Date Type Department Care Team (Late st Contact Info) Description 09/21/2015 Documentation [facility] Family Medicine [address] [place] [address] Family Medicine, Physician [address] [place], [place] [address] Social History Tobacco Use Types Packs/Day Years [...] on filedocumented in this encounter Care Teams Grab Setter Relationship Specialty Start Date End Date Miguel Shore MD [address] [place] [address] [place] [address] PCP - General 09/22/16 01/11/19 documented as of this encounter
--- OUTSIDE RECORDS SUMMARY | 2025-01-01 01:07 | XMS_ITS | Data Portability ---
Author Organization [place] - [facility], Allergy Address [address] [address] Care Team Providers Care Clerical Receptionist Name Role RAS Worrell Primary Care Provider [...] based on the outcomes of the treatments. Not available 10/14/2024 15:25:22 Plan of Treatment Reminders Order Date Submit Date Provider Last Modified By Organization Details Last Modified Time Details Appointments PROCEDURE 15 2024 10:50A M JAROD CORRAL MD Not available Not available Not available Lab None recorded. Referral None recorded. Procedures None recorded. Surgeries None recorded. Imaging None recorded. Medication Orders mupirocin 2 % topical ointment 2024 [id number] [facility] #[id number], [address] [place], [address], 10/14/2024 15:22:56 Patient TargetsNo targets recorded. Patient Instructions Encounter Date Encounter Id Patient Instructions Last Modified By Organization Details Last Modified Time 10/14/2024 [id number] Apply the prescribed nasal cream to both nostrils three times daily using a clean pinky finger with a short nail. Avoid applying the cream while driving or in public settings. Schedule the tube placement procedure at the motel front desk clerk before leaving the office. [email or web address] Not available 10/14/2024 15:23:26 Please note: Parts of this encounter note have been generated by AI based on audio conversation. Patient consent was required prior to utilizing this technology. Content review was required prior to finalizing the note. [email or web address] Not available 10/14/2024 15:23:26 Reason for Referral [...] Details Recorded Time Otalgia of right ear 1568870041 Active 2020 Otalgia, right ear; Note: Date Diagnosed : 09/02/2020 1:11 PM (H92.01) Not Available [facility] 4 03:16:14 Bilateral disorder of Eustachia n tubes 49071156278 15238 Active 2020 Other specified disorders of Eustachia n tube, bilateral ; Note: Date Diagnosed : 01/12/2021 4:35 PM (H69.83) Not Available [facility] 4 03:16:14 Hypertrop hy of nasal turbinate s 31099939 Active 2022 Hypertrop hy of nasal turbinate s; Note: Date Diagnosed : 3 4:12 PM (J34.3) Not Available [facility] 4 03:16:14 Allergic rhinitis 52559456 Active 2022 Other allergic rhinitis; Note: Date Diagnosed : 3 4:12 PM (J30.89) Not Available [facility] 4 03:16:14 Conductiv e hearing loss 98892260 Active 2022 Conductiv e hearing loss, unilatera l, right ear, with unrestric olivia hearing on the contralat eral side; Note: Date Diagnosed : 3 5:07 PM (H90.11) Not Available [facility] 4 03:16:15 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 - [facility] 5 15:22:06 Problem Notes None recorded. Procedures Surgical History Date Name Laterality Status Provider Name and Address Organization Details Recorded Time 10/30/2024 Air & Speech Audio with Tymps - 88185, 02555 & 77401 completed ANT PATTERSON MA, [facility] [address] [place] [address], [phone], [facility] - [facility] 10/30/2024 09:57:13 10/14/2024 Air & Speech Audio with Tymps - 73510, 16371 & 20416 completed ANT PATTERSON MA, [facility] [address] [place] [address], [phone], [facility] - [facility] 10/14/2024 14:47:03 Imaging Results None recorded. Procedure Notes None recorded. Medical Equipment None Reported. Allergies Allergen ID Allergen Name Allergen Category Reaction Reaction Severity Criticality Documentation Date Start Date Code Code System Note Provider Name and Address Organization Details Recorded Time 522144 chocolate flavor food,medi cation other Not available Not available 06/26/2023 React ion: other react ion, Unkno wn; Not Available [facility] 4 01:15:54 323821 cat dander environme nt other Not available Not available 06/26/2023 React ion: other react ion, Unkno wn; Not Available [facility] 4 01:15:55 092366 nut - unspecifi ed food other Not available Not available 06/26/2023 React ion: other react ion, Unkno wn; Not Available [facility] 4 01:15:56 Medications Name Sig Start Date [...] xtended release 12/06 completed Medicati on ID: [id number] B rand Name: Adderall XR Send Method: [...] as directed 10/14 completed Medicati on ID: [id number] D uration Value: 30 Brand Name: rachaelstjg [...] a day 10/14 completed Medicati on ID: [id number] D uration Value: 30 Brand Name: fluticas [...] extended release 10/14 completed Medicati on ID: [id number] B rand Name: bupropio n HCl Send [...] mg capsule 10/14 completed Medicati on ID: [id number] B rand Name: Vyvanse Send Method: E-Prescr [...] ICD10 Code Diagnosis IMO Codes Diagnosis Note [id number] JAROD CORRAL MD [facility] [address] [address] 10/14/2024 14:13:27 10/14/2024 15:24:06 Atrophic flaccid right tympanic membrane 5978211144 357367 H73.811 Patulous r ight Eustachian tube 7272597856 451583 H69.01 Nasal vestibulitis 12848 000 J34.89 167253 [id number] ANT PATTERSON MA, CCC-A [facility] [address] [address] 10/14/2024 14:15:34 10/14/2024 14:45:56 Atrophic flaccid right tympanic membrane [id number] 250924 H73.811 Audiologic al evaluation results: Right ear: Normal hearing with excellent word recognitio n. Left ear: Normal hearing with excellent word recognitio n. Tympanomet ry: Right Ear:Type Ad ( 2.3) Left Ear:Type Ad ( 3.1) [id number] ANT PATTERSON MA, CCC-A [facility] [address] [address] 10/30/2024 09:56:04 10/30/2024 11:42:58 Otalgia of right ear 3294181721 H92.01 Audiologic al evaluation results: Right ear: [...] Member ID Schofield Member ID Guarantor Name 12/29/2024 2 [place] La A Salmon Adrianna [id number] La A Salmon Adrianna 12/29/2024 1 MEDICARE B-[place] [facility] La A Salmon Adrianna [id number] La A Salmon Adrianna 07/31/2024 2 [place] La A Salmon Adrianna [id number] La A Salmon Adrianna Notes Date Note Type Note Provider Name and Address Organization Details Recorded Time 10/14/2024 text/html Longstanding ANT PATTERSON MA, [facility] [address] [place] [address],[address], [address], [place] - [facility] [place] 11/27/2024 16:53:22 10/14/2024 text/html 18-year-old female with longstanding history of allergy. I evaluated her back in January 2023 at which point patient was clearly demonstrating signs of patulous eustachian tube on the right. Nasopharyngoscopy negative. I discussed the use of OTC compound Patulend versus consultation with Dr. Mike Mendoza at [facility] versus consideration of placement of tympanostomy tube in the office. This was never carried out. Additionally, she reports a painful bump inside her left nostril, which has been present for a few days and was initially thought to be a pimple. She notes similar symptoms previously on the opposite nostril. JAROD CORRAL MD 100 [facility],[address], [address], [facility] - [facility] 10/14/2024 15:25:36 10/30/2024 text/html Hx middle ear dysfunction ANT PATTERSON MA, CCC-A [facility],[address], [address], [facility] - [facility] 10/30/2024 09:59:14 OBGyn Episode No OBEpisode recorded.
--- OUTSIDE RECORDS SUMMARY | 2025-01-01 01:07 | XMS_ITS | Encounter Summary ---
Author Organization [facility] Address [address] [place], [place] [address] Phone Care Team Providers Care Clock Maker Name Role Phone Miguel Shore MD Primary Care Provider [phone] Encounter Details Date Type Department Care Team (Late st Contact Info) Description 12/14/2011 Documentation [facility] [place] Family Medicine [address] [place] [address] Family Medicine, Physician [address] [place], [place] [address] Social History Tobacco Use Types Packs/Day Years [...] on filedocumented in this encounter Care Teams Clock Maker Relationship Specialty Start Date End Date Miguel Shore MD [address] [place] [address] [place] [address] PCP - General 09/22/16 01/11/19 documented as of this encounter
--- OUTSIDE RECORDS SUMMARY | 2025-01-01 01:07 | XMS_ITS | Encounter Summary ---
Author Organization [facility] Address [address] [place] [address] Phone Care Team Providers Care Bracelet Form Coverer Name Role Phone Miguel Shore MD Primary Care Provider [phone] Encounter Details Date Type Department Care Team (Late st Contact Info) Description 04/07/2010 Documentation [facility] [place] [address] [place] [address] Family Medicine, Physician [address] [place], [place] [address] Social History Tobacco Use Types Packs/Day Years [...] on filedocumented in this encounter Care Teams Bracelet Form Coverer Relationship Specialty Start Date End Date Miguel Shore MD [address] [place] [address] [place] [address] PCP - General 09/22/16 01/11/19 documented as of this encounter
--- OUTSIDE RECORDS SUMMARY | 2025-01-01 01:07 | XMS_ITS | Encounter Summary ---
Author Organization [facility] Address [address] [place], [place] [address] Phone Care Team Providers Care Social Worker Health Services Name Role Phone Miguel Shore MD Primary Care Provider [phone] Encounter Details Date Type Department Care Team (Late st Contact Info) Description 09/28/2015 Documentation [facility] [place] Family Medicine [address] [place] [address] Family Medicine, Physician [address] [place], [place] [address] Social History Tobacco Use Types Packs/Day Years [...] on filedocumented in this encounter Care Teams Social Worker Health Services Relationship Specialty Start Date End Date Miguel Shore MD [address] [place] [address] [place] [address] PCP - General 09/22/16 01/11/19 documented as of this encounter
--- OUTSIDE RECORDS SUMMARY | 2025-01-01 01:07 | XMS_ITS | Encounter Summary ---
Author Organization [facility] Address [address] [place], [place] [address] Phone Care Team Providers Care Fisher Trawl Line Name Role Phone Miguel Shore MD Primary Care Provider [phone] Encounter Details Date Type Department Care Team (Late st Contact Info) Description 08/30/2009 Documentation [facility] [place] [address] [place] [address] Family Medicine, Physician [address] [place], [place] [address] Social History Tobacco Use Types Packs/Day Years [...] on filedocumented in this encounter Care Teams Fisher Trawl Line Relationship Specialty Start Date End Date Miguel Shore MD [address] [place] [address] [place] [address] PCP - General 09/22/16 01/11/19 documented as of this encounter
--- OUTSIDE RECORDS SUMMARY | 2025-01-01 01:07 | XMS_ITS | Encounter Summary ---
Author Organization [facility] Address [address] [place], [place] [address] Phone Care Team Providers Care Senior Game Designer Name Role Phone Miguel Shore MD Primary Care Provider [phone] Encounter Details Date Type Department Care Team (Late st Contact Info) Description 07/26/2011 Documentation [facility] [place] Family Medicine [address] [place] [address] Family Medicine, Physician [address] [place], [place] [address] Social History Tobacco Use Types Packs/Day Years [...] on filedocumented in this encounter Care Teams Senior Game Designer Relationship Specialty Start Date End Date Miguel Shore MD [address] [place] [address] [place] [address] PCP - General 09/22/16 01/11/19 documented as of this encounter
--- OUTSIDE RECORDS SUMMARY | 2025-01-01 01:07 | XMS_ITS | Encounter Summary ---
Author Organization [facility] Address [address] [place], [place] [address] Phone Care Team Providers Care Freelance Art Director Name Role Phone Miguel Shore MD Primary Care Provider [phone] Encounter Details Date Type Department Care Team (Late st Contact Info) Description 05/25/2011 Documentation [facility] [place] Family Medicine [address] [place] [address] Family Medicine, Physician [address] [place], [place] [address] Social History Tobacco Use Types Packs/Day Years [...] on filedocumented in this encounter Care Teams Freelance Art Director Relationship Specialty Start Date End Date Miguel Shore MD [address] [place] [address] [place] [address] PCP - General 09/22/16 01/11/19 documented as of this encounter
--- OUTSIDE RECORDS SUMMARY | 2025-01-01 01:07 | XMS_ITS | Encounter Summary ---
Author Organization [facility] Address [address] [place], [place] [address] Phone Care Team Providers Care Drencher Name Role Phone Miguel Shore MD Primary Care Provider [phone] Encounter Details Date Type Department Care Team (Late st Contact Info) Description 03/28/2013 Documentation [facility] [place] [address] [place] [address] Family Medicine, Physician [address] [place], [place] [address] Social History Tobacco Use Types Packs/Day Years [...] on filedocumented in this encounter Care Teams Drencher Relationship Specialty Start Date End Date Miguel Shore MD [address] [place] [address] [place] [address] PCP - General 09/22/16 01/11/19 documented as of this encounter
--- OUTSIDE RECORDS SUMMARY | 2025-01-01 01:07 | XMS_ITS | Encounter Summary ---
Author Organization [facility] Address [address] [place] [address] Phone Care Team Providers Care Maintenance Shop Laborer Name Role Phone Miguel Shore MD Primary Care Provider [phone] Encounter Details Date Type Department Care Team (Late st Contact Info) Description 05/19/2016 Documentation [facility] [place] Family Medicine [address] [place] [address] Family Medicine, Physician [address] [place], [place] [address] Social History Tobacco Use Types Packs/Day Years [...] on filedocumented in this encounter Care Teams Maintenance Shop Laborer Relationship Specialty Start Date End Date Miguel Shore MD [address] [place] [address] [place] [address] PCP - General 09/22/16 01/11/19 documented as of this encounter
--- OUTSIDE RECORDS SUMMARY | 2025-01-01 01:07 | XMS_ITS | Encounter Summary ---
Author Organization [facility] Address [address] [place] [address] Phone Care Team Providers Care Screen Cleaner Name Role Phone Unavailable Primary Care Provider Unavailabl e Reason for Visit * Reason Comments Med Refill Encounter Details Date Type Department Care Team (Late st Contact Info) Description 12/27/2024 Refill [facility] [place] [address] [place] [address] Ju Arambula MD [address] [place] [address] Irregular menses Social History Tobacco Use Types Packs/Day Years [...] encounter Miscellaneous Notes * Telephone Encounter - Keila Joyce LPN - 12/28/2024 10:02 AM EST No longer our patient documented in this encounter Plan of Treatment Not on file documented as of this encounter Visit Diagnoses Diagnosis Irregular menses Irregular menstrual cycle documented in this encounter
--- OUTSIDE RECORDS SUMMARY | 2025-01-01 01:07 | XMS_ITS | Encounter Summary ---
Author Organization [facility] Address [address] [place], [place] [address] Phone Care Team Providers Care Fire Marshal Name Role Phone Miguel Shore MD Primary Care Provider [phone] Encounter Details Date Type Department Care Team (Late st Contact Info) Description 09/28/2016 Conversion Encounter [facility] [place] [address] [place] [address] Social History Tobacco Use Types Packs/Day Years [...] on filedocumented in this encounter Care Teams Fire Marshal Relationship Specialty Start Date End Date Miguel Shore MD [address] [place] [address] PCP - General 09/22/16 01/11/19 documented as of this encounter
--- OUTSIDE RECORDS SUMMARY | 2025-01-01 01:07 | XMS_ITS | Encounter Summary ---
Author Organization [facility] Address [address] [place], [place] [address] Phone Care Team Providers Care Guard Entrance Registrar Name Role Phone Miguel Shore MD Primary Care Provider [phone] Encounter Details Date Type Department Care Team (Late st Contact Info) Description 03/28/2013 Documentation [facility] [place] Family Medicine [address] [place] [address] Family Medicine, Physician [address] [place], [place] [address] Social History Tobacco Use Types Packs/Day Years [...] on filedocumented in this encounter Care Teams Guard Entrance Registrar Relationship Specialty Start Date End Date Miguel Shore MD [address] [place] [address] [place] [address] PCP - General 09/22/16 01/11/19 documented as of this encounter
--- OUTSIDE RECORDS SUMMARY | 2025-01-01 01:07 | XMS_ITS | Encounter Summary ---
Author Organization [facility] Address [address] [place] [address] Phone Care Team Providers Care Neurology Tech Name Role Phone Miguel Shore MD Primary Care Provider [phone] Encounter Details Date Type Department Care Team (Late st Contact Info) Description 05/19/2016 Documentation [facility] [place] Family Medicine [address] [place] [address] Family Medicine, Physician [address] [place], [place] [address] Social History Tobacco Use Types Packs/Day Years [...] on filedocumented in this encounter Care Teams Neurology Tech Relationship Specialty Start Date End Date Miguel Shore MD [address] [place] [address] [place] [address] PCP - General 09/22/16 01/11/19 documented as of this encounter
--- OUTSIDE RECORDS SUMMARY | 2025-01-01 01:08 | XMS_ITS | Encounter Summary ---
Author Organization [facility] Address [address] [place] [address] Phone Care Team Providers Care Bag End Sewer Name Role Phone Miguel Shore MD Primary Care Provider [phone] Encounter Details Date Type Department Care Team (Late st Contact Info) Description 07/09/2013 Documentation [facility] [place] Family Medicine [address] [place] [address] Family Medicine, Physician [address] [place], [place] [address] Social History Tobacco Use Types Packs/Day Years [...] on filedocumented in this encounter Care Teams Bag End Sewer Relationship Specialty Start Date End Date Miguel Shore MD [address] [place] [address] [place] [address] PCP - General 09/22/16 01/11/19 documented as of this encounter
--- OUTSIDE RECORDS SUMMARY | 2025-01-01 01:08 | XMS_ITS | Encounter Summary ---
Author Organization [facility] Address [address] [place], [place] [address] Phone Care Team Providers Care Nurse Manager Name Role Phone Miguel Shore MD Primary Care Provider [phone] Encounter Details Date Type Department Care Team (Late st Contact Info) Description 08/25/2013 Documentation [facility] [place] Family Medicine [address] [place] [address] Family Medicine, Physician [address] [place], [place] [address] Social History Tobacco Use Types Packs/Day Years [...] on filedocumented in this encounter Care Teams Nurse Manager Relationship Specialty Start Date End Date Miguel Shore MD [address] [place] [address] [place] [address] PCP - General 09/22/16 01/11/19 documented as of this encounter
[2025-01-27 10:43] VITALS: BMI 42.3
[2025-01-29 06:07] VITALS: BMI 43.5
[2025-01-29 06:23] VITALS: BP 135/79; PULSE 95; RESP 18; TEMP 37.1; O2SAT 96
[2025-01-29] MEDS: Lactated Ringers 1,000 ML 80 ML IVCONT (06:25)
--- NOTE | 2025-01-29 07:30 | HO.ANESPROP2 ---
Documented by User: Arely Mckeon NP 01/26/25 12:34 HPI - Anesthesia Eval Consult details Narrative: 19 yr old female for upper endoscopy Lives with Aunt who is guardian per PCP note Asthma: controlled Anesthesia Pre-Procedure Meds Is the patient on any of the following meds?: GLP1/DPP4 PMFSH Active Problems Active Problems: All Active Problems (Updated 01/25/25 @ 15:40 by Eddie Caldwell MD) Vitamin B12 deficiency (Acute) Vitamin D deficiency (Acute) Hypothyroidism (Acute) Morbid obesity (Acute) Dyslipidemia (high LDL; low HDL) (Acute) Encounter for general adult medical examination without abnormal findings (Acute ~09/10/24) Encounter for screening involving social determinants of health (SDoH) (Acute) Low back pain (Acute) Laboratory exam ordered as part of routine general medical examination (Acute) Obesity, morbid, BMI 40.0-49.9 (Acute) MDD (major depressive disorder), recurrent episode (Acute) TANYA (generalized anxiety disorder) (Acute) ADHD (Acute) Eczema (Acute) Mild intermittent asthma (Acute) Past Medical History Medical History (Updated 01/25/25 @ 15:40 by Eddie Caldwell MD) Vitamin B12 deficiency Vitamin D deficiency Hypothyroidism Morbid obesity Anxiety and depression ADHD Allergic Sinusitis Asthma Family History Family History (Updated 09/10/24 @ 13:13 by Raghu Brink MA) Father Asthma Surgical History Surgical History (Updated 09/10/24 @ 13:12 by Raghu Brink MA) No pertinent past surgical history Social History Social History (Updated 09/10/24 @ 13:10 by Raghu Brink MA) Household Members: Family Household Members Other:: mother Housing: House Are you a primary medical care manager to a significant other at home: No Do you presently have visiting nurse or other home services: No Alcohol intake: never Patient Tobacco Use Status: Never used Tobacco e-Cigarette/Vaping Use: Never Used Second Hand Smoke Exposure: No Use of substances other than those prescribed or required for medical reasons: No Advance Directives: No Advance Directives Information Provided: Yes service: No Current occupational status: student Current occupational exposures/hazards: No Cognitive needs: No Hearing needs: Yes (right side ) Vision needs: No Meds Allergies Allergy/AdvReac Type Severity Reaction Status Date / Time cashew nut Allergy Unknown Unknown Verified 01/27/25 10:34 pistachio nut Allergy Unknown Unknown Verified 01/27/25 10:34 Home Medications ?Medication ?Instructions ?Recorded ?Confirmed ?Last Taken ?Type albuterol sulfate 90 mcg/actuation 2 puff inhalation Q4H PRN 09/10/24 01/27/25 Unknown History aerosol inhaler Shortness Of Breath Or Wheezing betamethasone dipropionate 0.05 % 1 appl topical DAILY 09/10/24 01/27/25 Unknown History topical cream cetirizine 10 mg capsule (Zyrtec) 10 mg PO DAILY PRN allergies 09/10/24 01/27/25 Unknown History clindamycin phosphate 1 % lotion 1 appl topical QAM 09/10/24 01/27/25 Unknown History dupilumab 300 mg/2 mL subcutaneous 300 mg subcut 09/10/24 12/12/24 01/14/25 History pen injector (Dupixent) fluticasone propionate 115 2 puff inhalation BID 09/10/24 01/27/25 Unknown History mcg-salmeterol 21 mcg/actuation HFA inhaler norethindrone 1.5 mg-ethinyl 1 tab PO DAILY 09/10/24 01/27/25 Unknown History estradiol 30 mcg(21)/iron 75 mg(7) tablet (Junel FE 1.5/30 (28)) epinephrine 0.3 mg/0.3 mL IM 11/04/24 12/12/24 Unknown History injection, auto-injector methylphenidate 25.9 mg ER,IR 25.9 mg PO DAILY 11/04/24 01/27/25 Unknown History disintegrating 24 hr tablet sertraline 25 mg tablet 25 mg PO DAILY 11/04/24 01/27/25 Unknown History Exam Pertinent Lab Results Pertinent Lab Results: Laboratory Tests 12/22/24 13:46 WBC 10.7 RBC 4.99 Hgb 13.4 Hct 41.8 Plt Count 299 Sodium 141 Potassium 3.9 BUN 12 Creatinine 0.79 Documented by User: Phylicia Gutierres, DO 01/29/25 07:58 HPI - Anesthesia Eval Anesthesia Pre-Procedure Meds Is the patient on any of the following meds?: GLP1/DPP4 PMFSH Past Medical History Medical History (Updated 01/25/25 @ 15:40 by Eddie Caldwell MD) Vitamin B12 deficiency Vitamin D deficiency Hypothyroidism Morbid obesity Anxiety and depression ADHD Allergic Sinusitis Asthma Family History Family History (Updated 09/10/24 @ 13:13 by Raghu Brink MA) Father Asthma Family history of problems with anesthesia: No Surgical History Surgical History (Updated 09/10/24 @ 13:12 by Raghu Brink MA) No pertinent past surgical history History of Problems with Anesthesia: No Social History Social History (Updated 09/10/24 @ 13:10 by Raghu Brink MA) Household Members: Family Household Members Other:: mother Housing: House Are you a primary medical care manager to a significant other at home: No Do you presently have visiting nurse or other home services: No Alcohol intake: never Patient Tobacco Use Status: Never used Tobacco e-Cigarette/Vaping Use: Never Used Second Hand Smoke Exposure: No Use of substances other than those prescribed or required for medical reasons: No Advance Directives: No Advance Directives Information Provided: Yes service: No Current occupational status: student Current occupational exposures/hazards: No Cognitive needs: No Hearing needs: Yes (right side ) Vision needs: No Meds Allergies Allergy/AdvReac Type Severity Reaction Status Date / Time cashew nut Allergy Unknown Unknown Verified 01/27/25 10:34 pistachio nut Allergy Unknown Unknown Verified 01/27/25 10:34 Home Medications ?Medication ?Instructions ?Recorded ?Confirmed ?Last Taken ?Type albuterol sulfate 90 mcg/actuation 2 puff inhalation Q4H PRN 09/10/24 01/27/25 Unknown History aerosol inhaler Shortness Of Breath Or Wheezing betamethasone dipropionate 0.05 % 1 appl topical DAILY 09/10/24 01/27/25 Unknown History topical cream cetirizine 10 mg capsule (Zyrtec) 10 mg PO DAILY PRN allergies 09/10/24 01/27/25 Unknown History clindamycin phosphate 1 % lotion 1 appl topical QAM 09/10/24 01/27/25 Unknown History dupilumab 300 mg/2 mL subcutaneous 300 mg subcut 09/10/24 12/12/24 01/14/25 History pen injector (Dupixent) fluticasone propionate 115 2 puff inhalation BID 09/10/24 01/27/25 Unknown History mcg-salmeterol 21 mcg/actuation HFA inhaler norethindrone 1.5 mg-ethinyl 1 tab PO DAILY 09/10/24 01/27/25 Unknown History estradiol 30 mcg(21)/iron 75 mg(7) tablet (Junel FE (28)) epinephrine 0.3 mg/0.3 mL IM 11/04/24 12/12/24 Unknown History injection, auto-injector methylphenidate 25.9 mg ER,IR 25.9 mg PO DAILY 11/04/24 01/27/25 Unknown History disintegrating 24 hr tablet sertraline 25 mg tablet 25 mg PO DAILY 11/04/24 01/27/25 Unknown History Exam Exam Date and Time: 01/29/25 0730 Height,Weight and Vital Signs: Height 5 ft 1 in Weight 104.5 kg Vital Signs Temperature 98.8 F 01/29/25 06:23 Pulse Rate 95 01/29/25 06:23 Respiratory Rate 18 01/29/25 06:23 Blood Pressure 135/79 01/29/25 06:23 Pulse Oximetry 96 01/29/25 06:23 Oxygen Delivery Method Room Air 01/29/25 06:23 Temperature 98.8 F 01/29/25 06:23 Pulse Rate 95 01/29/25 06:23 Respiratory Rate 18 01/29/25 06:23 Blood Pressure 135/79 01/29/25 06:23 Pulse Oximetry 96 01/29/25 06:23 Oxygen Delivery Method Room Air 01/29/25 06:23 Airway Mallampati Class: II TM Dist: >3cm Neck ROM: Full Loose/Missing/Broken Teeth: No (patient denies any loose or broken teeth) Heart: S1S2 Lungs: CTAB Assessment and Plan Assessment Anesthesia Assessment: Anesthesia Plan Discussed and Chart Reviewed Final Anesthetic Review Family History of Problems with Anesthesia: No History of Problems with Anesthesia: No NPO: Yes ASA Class: III Final Preanesthetic Review: No Changes in Pt Med Stat, Meds/Allgs Chart Reviewed, Consent Obtained/Reviewed and Anes Risks/Benef Reviewed Patient Risk: Intermediate Procedure Risk: Low Anesthetic Plan Anesthetic Plan: MAC: and Agree w/ Assess. and Plan Disposition: Standard PACU
--- NOTE | 2025-01-29 07:34 | MHC.SHP ---
Pre-Procedural Eval Section A - 24 Hr Update-Section A only Date of Service: 01/29/25 The patient is an INPATIENT: No The patient has been examined within 24 hours of the surgical procedure. The History & Physical has been completed within 30 days and I have reviewed it.: Yes Section B - Complete if H&P > 30 days Chief Complaint: Obesity, unspecified Relevant Family History (Specify if Yes): No Relevant Social History: None Present Medications: None Medical History: No relevant PMH History of Previous Operations: No relevant previous surgery Allergies: Allergies Allergy/AdvReac Type Severity Reaction Status Date / Time cashew nut Allergy Unknown Unknown Verified 01/27/25 10:34 pistachio nut Allergy Unknown Unknown Verified 01/27/25 10:34 Review of Systems Sugical H&P ROS: Negative: Constitution, Cardiovascular, Respiratory, Neurological, Psychiatric, Hem-Onc, Allergic/Immunologic, Gastrointestinal, Genitourinary, Musculoskeletal, Integumentary, Endocrine and Eyes/Ears/Nose/Throat Exam Surgical H&P Exam: Normal: HEENT, Normal: Heart, Normal: Lungs, Normal: Extremities, Normal: Abdomen, Normal: Skin and Normal: Neurological Plan Diagnosis/Plan: Unchanged (EGD to assess the stomach's anatomy. Risks of bleeding and perforation were discussed with the patient and she is in agreement with the plan.) I have reviewed the history and physical and performed a pertinent physical examination on my patient. No changes have occurred unless specified. Time Spent With Patient Time: Total time managing care of this patient today ____ minutes.
--- NOTE | 2025-01-29 07:34 | PM.OP ---
Brief Operative Note Date of Service: 01/29/25 Pre-op diagnosis: Morbid obesity Post-op diagnosis: same Procedure: PROCEDURE DATE: 01/29/2025 PREOPERATIVE DIAGNOSIS: Morbid obesity POSTOPERATIVE DIAGNOSIS: ?Same as above. Normal endoscopy PROCEDURE: [id number] with biopsies Surgeon: Gabe Caldwell M.D.. Ph.D. Faculty Dean: None ? Anesthesia: IV sedation Estimated blood loss: ?Minimal FINDINGS AND PROCEDURE: ? OPERATIVE INDICATIONS: ?The patient is a 19 year old female known to me who is interested in bariatric surgery. Based on this information I recommended an upper endoscopy to evaluate the patient's symptoms. Risks and complications of the surgery were discussed with the patient in advance particularly the possibility of perforation or bleeding that may require surgical intervention. The patient understood the risks and was in agreement with the plan. ? PROCEDURE: After informed consent was obtained by the patient, the patient was ?transferred to the Operating Room and was placed in the supine position.? After successful induction of IV sedation, a mouth block was inserted and the patient was placed in the left lateral decubitus position. An upper endoscopy was performed next, the oropharynx and esophagus appeared within the normal limits. There was no hiatal hernia. The z-line was smooth. Two biopsies were obtained from the distal esophagus 2-3 cm proximal to the GE junction and two additional biopsies from the GE junction. The stomach was entered and it appeared to be of normal size. There was no gastritis. There was no stricture or ulcer. A biopsy was obtained from the gastric fundus and the antrum. No significant bleeding was noted from any of the biopsy sites. Retroflexion of the scope confirmed the presence of a normal GE junction. The scope was then advanced into the duodenum which appeared to be normal as well. At that point the duodenum ?and the stomach were decompressed and the scope was withdrawn from the patient's mouth. The patient extubated and was transferred in stable condition to the Recovery Room for further care. I was present and performed all steps of the procedure. There were no residents to assist with this case. Dale Caldwell M.D., Ph.D. Surgeon: Eddie Caldwell MD Anesthesia: MAC Was an Faculty Dean used for this Procedure?: No Estimated blood loss (mL): 0 IV fluids (mL): 400 Urine output (mL): 0 (No Ramos to record output) Pathology: other (1) antrum x1, 2) fundus x1, 3) GE junction x2, 4) distal esophagus x2) Condition: stable Disposition: PACU
[2025-01-29 07:53] VITALS: BP 111/48; PULSE 94; RESP 23; TEMP 36.2; O2SAT 96
[2025-01-29 08:08] VITALS: BP 105/55; PULSE 81; RESP 21; O2SAT 96
[2025-01-29 08:23] VITALS: BP 114/64; PULSE 83; RESP 20; TEMP 36.2; O2SAT 95
== END 2025-01-29 08:50 | disposition home or self-care (01) ==
PROVIDERS: Anesthesiology; PCP Nurse Practitioner Family; Visit Provider Surgery
PROC: 0DJ08ZZ Inspection of Upper Intestinal Tract, Via Natural or Artificial Opening Endoscopic (ICD-10-PCS; CPT 43235; principal; 2025-01-29 07:30)
DX: E66.01 Morbid (severe) obesity due to excess calories (principal); Z68.41 Body mass index [BMI] 40.0-44.9, adult; E78.5 Hyperlipidemia, unspecified; F41.8 Other specified anxiety disorders; F90.9 Attention-deficit hyperactivity disorder, unspecified type; J45.909 Unspecified asthma, uncomplicated; Z79.51 Long term (current) use of inhaled steroids; Z79.620 Long term (current) use of immunosuppressive biologic; Z79.899 Other long term (current) drug therapy; Z91.018 Allergy to other foods
CPT/HCPCS: 43239; 36415; 84702; 88305; 88313; 88342; J2003; J2704

== ENCOUNTER → 2025-01-29 05:55 | Outpatient (BNV) | payer MEDICARE, MEDICAID, SELFPAY | PROVIDERS: PCP Nurse Practitioner Family; Visit Provider Surgery | DX: E66.01 Morbid (severe) obesity due to excess calories (principal); Z68.41 Body mass index [BMI] 40.0-44.9, adult; J45.20 Mild intermittent asthma, uncomplicated | CPT/HCPCS: 43239 ==

== ENCOUNTER 2025-02-11 12:03 | Outpatient (AMB) | payer MEDICARE, MEDICAID, SELFPAY ==
--- NOTE | 2025-02-11 12:05 | A.OFFWM_ITS ---
Intake Intake Visit Reasons: OV BH Intake Allergies cashew nut Allergy (Unknown, Verified 01/27/25 10:34) Unknown pistachio nut Allergy (Unknown, Verified 01/27/25 10:34) Unknown [facility] Medical History (Updated 03/11/25 @ 08:50 by Maite Pineda [facility]) Vitamin B12 deficiency Vitamin D deficiency Hypothyroidism Morbid obesity Anxiety and depression ADHD Allergic Sinusitis Asthma Surgical History (Updated 09/10/24 @ 13:12 by Raghu Brink MA) No pertinent past surgical history Family History (Updated 09/10/24 @ 13:13 by Raghu Brink MA) Father Asthma Social History (Updated 09/10/24 @ 13:10 by Raghu Brink MA) Household Members: Family Household Members Other:: mother Both parents involved: No Caregiver staying overnight: No Housing: House Are you a primary manager intensive care to a significant other at home: No Do you presently have visiting nurse or other home services: No 75 years or older and lives alone: No Alcohol intake: never Patient Tobacco Use Status: Never used Tobacco e-Cigarette/Vaping Use: Never Used Second Hand Smoke Exposure: No service: No Current occupational status: student Current occupational exposures/hazards: No Cognitive needs: No Hearing needs: Yes (right side ) Vision needs: No Behavioral Health Assessment Weight Management Therapy Therapy Notes Details PT is a 19 year old female who presents for an initial visit to begin a BH assessment as part of the surgical weight loss program. PT reports difficulty stopping consumption of foods she is accustomed to eating. We discussed ongoing unhealthy eating patterns and food choices, and reviewed how the brain responds to food in order to build awareness, support decision- making, and promote sustainable lifestyle changes and long-term success. Presenting Concerns Referral Source WMP-Provider Reason for referral Completion of behavioral health assessment as part of process for weight-loss surgery. Precipitating Event Obesity Living Situation0 Current Living Situation Own and Relative's/Guardian's Syed At risk of losing current housing? No Satisfied with current living situation? Yes Comments Pt lives with her mother and maternal grandmother. Also they ahve 2 dogs and 1 bird. Food/Weight/Diet Expectations of change PT started the program at 224Lbs, and reports a recent weight of 226Lbs as of today, reflecting a weight-gain. PT reports she has not been exercising and not been following meal plan steadily with being off the plan around thanksgiving and then around [place]. Initial goal is to lose 10% of her weight before surgery, which is about 24lbs. Ultimate weight goal: 200lbs before surgery. Pt would like to be at least 160Lbs as ultimate weight-goal after surgery. PT is implementing the following: Current meal plan: 2 protein shakes, 2 protein bars and one meal per day. Exercise plan: the goal is to burn 2000 calories per week on exercise. she walks or goes to the school gym. Scale: yes Communication with provider: not consistent - last communication on Sunday. History/Relationship with food Patterns of eating fast food, multiple packed sn acks at day, not feeling saciated in general leading to overeat. Social History Family history and relationship PT is single and have no children. Pt is adopted and has 12 siblings (5 from bio-mother, 5 from bio-dad, and 2 from adoptive mom). She currently lives with her adoptive mother and grandmother. She is very close to her adoptive father. Bio-mother in 2017, bio-dad is her biological uncle, who is alive. Parental/Familial machine mover obligations Helps her mother who is in a wheelchair and with her grandmother who has alzheimer's. Developmental history and status Diagnosed with ADHD and currently takes Methylphenidate. Social support Older brother, father and mother. 3 close friends. Community support None Yazidism/Spirituality Taoism Cultural/Ethnic information . Legal Involvement and History Current or historical involvement with the legal system? None reported. 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 Preferred learning style Written and Visual Currently enrolled in educational program? Yes Interested in further educational program? No Educational Interests/Skills Likes computers. 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 No Meaningful activities Play videogames, coloring, listen to music. Financial Situation Describe current financial situation Comfortable Financial assistance? SSI Service Service? No Mental Health and Addiction Treatment Current/Past substance abuse? No Comments Alcohol: 0-1 x month socially. 1 drink. Cigarettes/Tobacco: None Cannabis/Edibles: None Current/Past addictive behavior concerns? No Psychiatric history PT currently attends counseling with Danielle Orantes and prescriber, ANDRÉS Luciano at [facility]. She sees her counselor every 2 weeks and prescriber every 2 months. Currently gets prescribed sertraline 25mg and methylphenidate 25.9mg. PT reports a diagnosis of ADHD, anxiety and depression. PT denies ever been hospitalized for MH or experienced any safety concerns around, SI, SA, self-harm or other harm. Medical and Physical Health Summary Additional Medical History not covered in history None aditional Sexual History concerns None reported. Physical exam in the last year? Yes Pain Screening Current pain? No Pain in the last few months? Yes Comments Back pain. Medications Is the patient compliant with medications? Yes Does the patient have Avila Guardian in place? Not applicable Does the patient use complimentary health approaches? No Questionnaires PHQ-9 Over the last 2 weeks, how often have you been bothered by any of the following problems? 1. Little interest or pleasure in doing things: not at all 2. Feeling down, depressed, or hopeless: several days 3. Trouble falling or staying asleep, or sleeping too much: nearly every day 4. Feeling tired or having little energy: several days 5. Poor appetite or overeating: several days 6. Feeling bad about yourself - or that you are a failure or have let yourself or your family down: not at all 7. Trouble concentrating on things, such as reading the newspaper or watching television: not at all 8. Moving or speaking so slowly that other people could have noticed. Or the opposite - being so fidgety or restless that you have been moving around a lot more than usual: not at all 9. Thoughts that you would be better off or of hurting yourself in some way: not at all Total score: 6 Depression Screening Interpretation: Positive (From new Pt pack completed on 11/04/2025- New one will be administered at next ana. ) Depression Screening Follow-up: Existing condition and In treatment Depression Screening Done: Yes Source: Developed by Drs. Fred Lewis, Bailey Delaney, Sharath Henning and colleagues, with an educational sia from [employer]. Binge Eating Scale Group 1 A. I don't feel self-conscious about my wt. or body size when I'm with others. B. I feel concerned about how I look to others, but it normally does not make me fell disappointed with myself C. I do get self-conscious about my appearance and wt. which makes me feel disappointed in myself. D. I feel very self-conscious about my wt. and frequently I feel intense shame and disgust for myself. I try to avoid social contacts because of my self- consciousness. Response Group 1: B Group 2 A. I don't have any difficulty eating slowly in the proper manner. B. Although I seem to gobble down foods, I don't end up feeling stuffed because of eating to much. C. At times, I tend to eat quickly and then, I feel uncomfortably full afterwards. D. I have the habit of bolting down my food, without really chewing it. When this happens I usually feel uncomfortably stuffed because I've eaten to much. Response Group 2: B Group 3 A. I feel capable to control my eating urges when I want to. B. I feel like I have failed to control my eating more than the average person. C. I feel utterly helpless when it comes to feeling in control of my eating urges. D. Because I feel so helpless about controlling my eating I have become very desperate about trying to get control. Response Group 3: A Group 4 A. I don't have the habit of eating when I'm bored. B. I sometimes eat when I'm bored, but often I'm able to get busy and get my mind off food. C. I have a regular habit of eating when I'm bored, but occasionally, I can use some other activity to get my mind off eating. D. I have a strong habit of eating when I'm bored. Nothing seems to help me breath the habit. Response Group 4: C Group 5 A. I'm usually physically hungry when I eat something. B. Occasionally, I eat something on impulse even though I really am not hungry. C. I have the regular habit of eating foods, that I might not really enjoy, to satisfy a hungry feeling even though physically, I don't need the food. D. Although I'm not physically hungry, I get a hungry feeling in my mouth that only seems to be satisfied when I eat a food, like sandwich, that fills my mouth. Sometimes, when I eat the food to satisfy my mouth hunger, I then spit the food out so I won't gain weight. Response Group 5: A Group 6 A. I don't feel any guilt or self-hate after I overeat. B. After I overeat, occasionally I feel guilt or self-hate. C. Almost all the time I experience strong guilt or self-hate after I overeat. Response Group 6: B Group 7 A. I don't lose total control of my eating when dieting even after periods when I overeat. B. Sometimes when I eat a forbidden food on a diet, I feel like I blew it and eat even more. C. Frequently, I have the habit of saying to myself, I've blown it now, why not go all the way, when I overeat on a diet. When that happens I eat more. D. I have a regular habit of starting a strict diets for myself but I break the diets by going on an eating binge. My life seems to be either a feast or famine. Response Group 7: C Group 8 A. I rarely eat so much food that I feel uncomfortably stuffed afterwards. B. Usually about once a month, I each such a quantity of food, I end up feeling very stuffed. C. I have regular periods during the month when I eat large amounts of food, either at mealtime or at snacks. D. I eat so much food that I regularly feel quite uncomfortable after eating and sometimes a bit nauseous. Response Group 8: C Group 9 A. My level of calorie intake does not go up very high or go down very low on a regular basis. B. Sometimes after I overeat, I will try to reduce my caloric intake to almost nothing to compensate for the excess calories I've eaten. C. I have a regular habit of overeating during the night. It seems that my routine is not to be hungry in the morning but overeat in the evening. D. In my adult years, I have had week-long periods where I practically starve my self. This follows periods when I overeat. It seems I live a life of either feast or famine. Response Group 9: B Group 10 A. I usually am able to stop eating when I want to. I know when enough is enough. B. Every so often, I experience a compulsion to eat which I can't seem to control. C. Frequently, I experience strong urges to eat which I seem unable to control, but at other times I can control my eating urges. D. I feel incapable of controlling urges to eat. I have a fear of not being able to stop eating voluntarily. Response Group 10: A Group 11 A. I don't have any problem stopping eating when I feel full. B. I usually can stop eating when I feel full but occasionally overeat leaving me feeling uncomfortably stuffed. C. I have a problem stopping eating once I start and usually I feel uncomfortably stuffed after I eat a meal. D. Because I have a problem not being able to stop eating when I want, I sometimes have to induce vomiting to relieve my stuffed feeling. Response Group 11: A Group 12 A. I seem to eat just as much when I'm with others, Family social gatherings as when I'm by myself. B. Sometimes, when I'm with other persons, I don't eat as much as I want to eat because I'm self-conscious about my eating. C. Frequently, I eat only a small amount of food when others are present, because I'm very embarrassed about my eating. D. I feel so ashamed about overeating that I pick times to overeat when I know no one will see me. I feel like a closet eater. Response Group 12: A Group 13 A. I eat three meals a day with only an occasional between meal snack. B. I eat 3 meals a day, but I also normally snack between meals. C. When I am snacking heavily, I get in the habit of skipping regular meals. D. There are regular periods when I seem to be continually eating, with no planned meals. Response Group 13: D Group 14 A. I don't think much about trying to control unwanted eating urges. B. At least some of the time, I feel my thoughts are pre-occupied with trying to control my eating urges. C. I feel that frequently I spend much time thinking about how much I ate or about trying not to eat anymore. D. It seems to me that most of my waking hours are pre-occupied by thoughts about eating or not eating. I feel like I'm constantly struggling not to eat. Response Group 14: C Group 15 A. I don't think about food a great deal. B. I have strong craving for food but they last only for brief periods of time. C. I have days when I can't seem to think about anything else but food. D. Most of my days seem to be pre-occupied with thoughts about food. I feel like I live to eat. Response Group 15: B Binge Eating Score: 16 Score less than 17 Minimal Risk Score between 18-26 Moderate Risk Score between 27-46 High Risk Assessment & Plan Assessment & Plan (1) ADHD: Code(s): F90.9 - Attention-deficit hyperactivity disorder, unspecified type Qualifiers: Attention deficit-hyperactivity disorder type: predominantly inattentive Qualified Code(s): F90.0 - Attention-deficit hyperactivity disorder, predominantly inattentive type (2) TANYA (generalized anxiety disorder): Code(s): F41.1 - Generalized anxiety disorder (3) MDD (major depressive disorder), recurrent episode: Code(s): F33.9 - Major depressive disorder, recurrent, unspecified Qualifiers: Major depression episode severity: mild Qualified Code(s): F33.0 - Major depressive disorder, recurrent, mild (4) Pre-bariatric surgery psychological evaluation: Code(s): Z71.89 - Other specified counseling Plan The patient was not cleared today as the assessment was not completed. The patient will return in 2-4 weeks to continue the evaluation. PT signed IAIN and BH form was requested to her current provider, copy given to PT to bring directly to the office. Next appointment: 03/11/2025 at 11am - [place] [address] Psy Diag Eval Patient Type New Diagnoses Attention deficit hyperactivity disorder (ADHD), predominantly inattentive type F90.0 Attention deficit-hyperactivity disorder type: predominantly inattentive TANYA (generalized anxiety disorder) F41.1 Mild episode of recurrent major depressive disorder F33.0 Major depression episode severity: mild Pre-bariatric surgery psychological evaluation Z71.89 Time Spent (min) 55
--- OUTSIDE RECORDS SUMMARY | 2025-02-11 13:51 | XMS_ITS | Clinical Summary ---
Author Organization [facility] Address [address] [place] [id number] Care Team Providers Care [employer]ters [employer] Name Role Phone Ju Arambula MD Primary [...] so, obtain the minor's consent prior to disclosure.[facility] Allergies Active Allergy Reactions Criticality Noted [...] to complete this topic Insurance [place] [facility] MEDICAID PART A AND B Care Teams [employer] Relationship Specialty Start Date End Date Ju Arambula MD [address] [place] [address] KYRA ROBBINS [id number] PCP - General General Pediatrics 09/13/22
--- OUTSIDE RECORDS SUMMARY | 2025-02-11 13:51 | XMS_ITS | Clinical Summary ---
Author Organization [facility] Address [address] [place] [address] Phone Care Team Providers Care Pipe Tester Name Role Phone Ju Arambula MD Unavailable [phone] Miguel Shore MD Primary Care Provider [phone] Miguel Shore MD Unavailable [phone] Medications * This document contains information received from the source organization and may not represent a complete record from that organization. buPROPion XL (Wellbutrin XL) 300 mg 24 hr tablet Dose: 300 mg, Dose Amount: 1 tab, PO, Q24hr, Dispense Quantity: 30 tab, Refills: 1, Entered: 09/11/22 12:25:00 EDT, [facility]/pharmacy #[id number] 3 Active cetirizine (ZyrTEC) 10 mg tablet Dose: 10 mg, Dose Amount: 1 tab, PO, daily, Dispense Quantity: 90 tab, Refills: 3, Entered: 06/28/18 11:35:41 EDT, [facility] [id number] 9 Active clindamycin (Cleocin-T) 1 % lotion Dose Amount: 1 appl, TOP, BID, Special Instructions: apply to affected bumps in armpits and groin and to legs after shaving, Dispense Quantity: 60 mL, Refills: 6, Entered: 01/31/18 13:06:44 [facility] [id number] 8 Active dulaglutide (Trulicity) 0.75 mg/0.5 mL [...] EA, Refills: 3, Entered: 11/06/18 9:27:00 EDT, [facility][id number] 9 Active ketoconazole (NIZOral) 2 % shampoo Dose Amount: 1 appl, TOP, As Directed, Special Instructions: lather onto scalp, leave on for 5 min and rinse off 2x/week, Dispense Quantity: 120 mL, Refills: 6, Entered: 01/31/18 13:13:26 EST, [facility] [id number] 8 Active ketotifen (Zaditor) 0.025 % (0.035 %) ophthalmic solution Dose Amount: 1 drop, Eye Both, BID, Dispense Quantity: 7 mL, Refills: 3, Entered: 06/28/18 11:39:44 EDT, [facility] [id number] 9 Active lisdexamfetamin e (Vyvanse) 40 mg capsule Dose: 40 mg, Dose Amount: 1 cap, PO, DailyMorning, Dispense Quantity: 60 cap, Refills: 0, Entered: 08/28/22 16:19:00 EDT, [facility]/pharmacy #[id number] 3 Active montelukast (Singulair) 10 mg tablet Dose: 10 mg, Dose Amount: 1 tab, PO, daily, Dispense Quantity: 90 tab, Refills: 3, Entered: 06/28/18 11:38:58 EDT, [facility] [id number] 9 Active Social History Tobacco Use Types [...] of Treatment Not on file Care Teams Pipe Tester Relationship Specialty Start Date End Date Ralf, Ju Cueto MD [address], [place] [id number] PCP - Insurance PCP 08/18/22 Miguel Shore MD [address] [place] [address] PCP - General 12/22/08 Miguel Shore MD [address] [place] [address] PCP - Clinical PCP 06/15/10
== END 2025-02-11 13:00 | disposition home or self-care (01) ==
LOC: HO.HBST 12:03
PROVIDERS: PCP Nurse Practitioner Family; Visit Provider Counselor Mental Health
DX: F90.0 Attention-deficit hyperactivity disorder, predominantly inattentive type (principal); F41.1 Generalized anxiety disorder; F33.0 Major depressive disorder, recurrent, mild; Z71.89 Other specified counseling
CPT/HCPCS: 90791